=== PATIENT | female | born 1960 | race Caucasian/White ===

== ENCOUNTER 2020-03-31 10:02 | Outpatient (CLI) | payer OTHER, SELFPAY ==
--- NOTE | ~2020-03-31 | CT_ITS ---
EXAMINATION: CT lung screening EXAM DATE: 03/31/2020 10:39 INDICATION: Personal history of nicotine dependence. TECHNIQUE: Spiral low dose CT of the chest without contrast. Axial, coronal and sagittal images were reviewed. The dose-length product (DLP) for this examination was 102.44 mGy-cm. The exposure was t ailored according to patient size (auto mA exposure control), and iterative reconstruction (ASIR) was used as additional dose reduction technique. Comparison is made to prior examination from 01/15/2019. FINDINGS: Scattered calcified granulomas. Mild emphysema. Tracheobronchial tree is patent. There is no mediastinal, hilar or axillary lymphadenopathy. There are no pleural or pericardial effusions . There is no pneumothorax. Heart normal in size. There is mild to moderate coronary arterial c alcification, arterial sclerosis. Left adrenal adenomas. There is mild thoracic spondylosis without osteoblastic or osteolytic lesions identified. Normalization of previously seen hepatic steatosis. Otherwise no interval change. IMPRESSION: Lung-RADS category 1, negative (<1%chance of malignancy); recommend continued LDCT screen ing in 1 year. > Reviewed, dictated and finalized at location B. IMPRESSION: Lung-RADS category 1, negative (<1%chance of malignancy); recommend continued LDCT screening in 1 year. >
== END 2020-03-31 10:03 | disposition home or self-care (01) ==
LOC: ANHIMG 10:09
PROVIDERS: Visit Provider Nurse Practitioner Family
DX: Z87.891 Personal history of nicotine dependence (principal)
CPT/HCPCS: G0297

== ENCOUNTER 2023-06-18 10:09 | Outpatient (CLI) | payer OTHER, SELFPAY ==
--- NOTE | ~2023-06-18 | XR_ITS ---
EXAMINATION: XR chest 2V 06/18/2023 10:34 INDICATION: COPD. Chronic bronchitis. PROCEDURE: PA and lateral views of the chest COMPARISON: No prior studies for comparison. FINDINGS: The lungs are clear. The cardiomediastinal silhouette is within normal limits. There are no pleural effusions. There is no pneumothorax suspected. IMPRESSION: 1: NO ACUTE CARDIOPULMONARY DISEASE. Reviewed, dictated and finalized at location L.
== END 2023-06-18 10:10 | disposition home or self-care (01) ==
LOC: ANHIMG 10:21
PROVIDERS: PCP Emergency Medicine; Visit Provider Emergency Medicine
DX: J44.9 Chronic obstructive pulmonary disease, unspecified (principal); I73.9 Peripheral vascular disease, unspecified; Z87.09 Personal history of other diseases of the respiratory system
CPT/HCPCS: 71046

== ENCOUNTER 2023-06-25 13:23 | Outpatient (CLI) | payer OTHER, SELFPAY ==
--- NOTE | ~2023-06-25 | DEXA_ITS ---
Bone Density Report Name: ZULLY RIBEIRO Age: 63 Sex: Female Ethnicity: White Date of : 1960 Indication: postmenopausal; screening for osteoporosis; prior fracture; asthma or emphysema; hysterectomy; Referring Provider: YEE, DOMITILA [place] Study: Bone densitometry was performed. Exam Date: June 25, 2023 Accession number: [id number] Bone Density: Region BMD T-score Z-score Classification AP Spine(L1-L4) 0.988 -0.5 1.0 Normal Femoral Neck (Left) 0.713 -1.2 0.1 Osteopenia Total Hip (Left) 0.905 -0.3 0.7 Normal Femoral Neck (Right) 0.745 -0.9 0.4 Normal Total Hip (Right) 0.905 -0.3 0.7 Normal Total Hip Mean 0.905 -0.3 0.7 Normal World Health Organization criteria for BMD impression classify patients as: Normal (T-score at or above -1.0), Osteopenia (T-score between -1.0 and -2.5), or Osteoporosis (T-score at or below -2.5). 10-year Fracture Risk(1): Major Osteoporotic Fracture 13% Hip Fracture 1.6% Reported Risk Factors: [place] (), Neck BMD=0.713, BMI=27.9, previous fracture, smoking (1) FRAX(R) Version 3.08. Fracture probability calculated for an untreated patient. Fracture probability may be lower if the patient has received treatment. Clinical Information Provided by Patient: Has had a low trauma fracture Smokes Has used the following medications: Vitamin D Has the following medical conditions: Asthma or Emphysema, Hysterectomy Patient maximum height was 65.5 Menopause Age: 48 No regular weight bearing exercise Does not regularly consume dairy products Drinks caffeinated beverages Onset of menses at age 14 Number of children 2 Impression: The patient has low bone mass, based on the Left Femoral Neck T-score. The patient has an estimated ten-year risk of hip fracture of 1.6% and an estimated ten-year risk of major fracture of 13%, based on the WHO FRAX algorithm. The patient has risk factors, including: smoking, previous fracture. Discussion: BONE DENSITY IS LOW AT ONE OR MORE SKELETAL SITES. This patient's lowest T-score is low at one or more skeletal sites. It meets the World Health Organization's (WHO) criteria for ?low bone mass? (T-score between -1.0 and -2.5). The patient's 10-year risk of fracture as calculated by FRAX is less than the threshold where pharmacological therapy is recommended by the National Osteoporosis Foundation (NOF). However, all treatment decisions require clinical judgment and consideration of individual patient factors, including patient preferences, comorbidities, previous drug use, risk factors not captured in the FRAX model (e.g., frailty, falls, vitamin D deficiency, increased bone turnover, interval significant decline in bone density) and possible under or overestimation of fracture risk by FRAX. The patient nas
== END 2023-06-25 13:24 | disposition home or self-care (01) ==
PROVIDERS: PCP Emergency Medicine; Visit Provider Nurse Practitioner
DX: Z13.820 Encounter for screening for osteoporosis (principal); M85.852 Other specified disorders of bone density and structure, left thigh
CPT/HCPCS: 77080

== ENCOUNTER 2023-09-28 10:53 | Outpatient (CLI) | payer OTHER, SELFPAY ==
--- NOTE | ~2023-09-28 | MM_ITS ---
EXAMINATION: MM screening trey BI w darrick HISTORY: Screening mammogram TECHNIQUE: Craniocaudal and mediolateral oblique 3-D tomosynthesis images were obtained and synthetic 2-D images were generated. CAD analysis was submitted and interpreted. COMPARISON: No prior mammogram is available for comparison at this institution. BREAST PARENCHYMAL COMPOSITION: There are scattered areas of fibroglandular density. FINDINGS: 2 subcentimeter masses are noted in the upper central and upper outer left breast. Diagnost ic left mammogram and left breast ultrasound examination are recommended. No suspicious mass, architectural distortion, malignant calcification, skin thickening or retraction of either breast is noted otherwise. IMPRESSION: 1. Two upper central and outer left breast masses 2. Diagnostic left mammogram and left breast ultrasound examination are recommended. Reviewed, dictated and finalized at location A. NG MARKER IMPRESSION: 1. Two upper central and outer left breast masses 2. Diagnostic left mammogram and left breast ultrasound examination are recomme nded.
== END 2023-09-28 10:54 | disposition home or self-care (01) ==
LOC: ANHIMG 10:56
PROVIDERS: PCP Emergency Medicine; Visit Provider Emergency Medicine
DX: Z12.31 Encounter for screening mammogram for malignant neoplasm of breast (principal); R92.8 Other abnormal and inconclusive findings on diagnostic imaging of breast
CPT/HCPCS: 77063; 77067

== ENCOUNTER 2024-04-01 09:18 | Outpatient (CLI) | payer OTHER, SELFPAY ==
--- NOTE | ~2024-04-01 | XR_ITS ---
EXAMINATION: XR shoulder LT min 2V DATE: 04/01/2024 09:37 INDICATION: Left shoulder pain. TECHNIQUE: 4 views of left shoulder were obtained. COMPARISON: None. FINDINGS: Bone alignment is normal. No fracture. There is mild osteoarthritis of glenohumeral joint a nd severe osteoarthritis of acromioclavicular joint. IMPRESSION: 1. Polyarticular osteoarthritis. Reviewed, dictated and finalized at location A.
== END 2024-04-01 09:19 | disposition home or self-care (01) ==
LOC: ANHIMG 09:21
PROVIDERS: PCP Emergency Medicine; Visit Provider Emergency Medicine
DX: M19.012 Primary osteoarthritis, left shoulder (principal)
CPT/HCPCS: 73030

== ENCOUNTER 2024-05-04 10:05 | Outpatient (CLI) | payer OTHER, SELFPAY ==
--- NOTE | ~2024-05-04 | XR_ITS ---
XR knee RT 3V Ordering provider: Claude Philip MD History: . RT KNEE PAIN, NUMBNESS . Comparison: None. FINDINGS: BONES: No acute fracture or dislocation. JOINT SPACES: Normal. SOFT TISSUES: Normal. IMPRESSION: No acute osseous abnormality right knee. Reviewed, dictated and finalized at location A.
--- NOTE | ~2024-05-04 | US_ITS ---
RIGHT LOWER EXTREMITY VENOUS ULTRASOUND Ordering provider: Claude Philip MD History: . RT LEG PAIN . Comparison: None. FINDINGS: --COMMON FEMORAL: Patent and free of thrombus. Normal compressibility, phasic flow and augmentation. --PROXIMAL SUPERFICIAL FEMORAL: Patent and free of thrombus. Normal compressibility, phasic flow and augmentation. --DISTAL SUPERFICIAL FEMORAL: Patent and free of thrombus. Normal compressibility, phasic flow and au gmentation. --POPLITEAL: Patent and free of thrombus. Normal compressibility, phasic flow and augmentation. --POSTERIOR TIBIAL: Patent and free of thrombus. Normal compressibility, phasic flow and augmentation . 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 Patent poplite al artery. IMPRESSION: Negative right lower extremity venous US. No deep vein thrombosis. 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 Patent popliteal art keyana Reviewed, dictated and finalized at location A. IMPRESSION: Negative right lower extremity venous US. No deep vein thrombosis. 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 Patent popliteal artery
== END 2024-05-04 10:06 | disposition home or self-care (01) ==
LOC: ANHIMG 10:07
PROVIDERS: PCP Emergency Medicine; Visit Provider Emergency Medicine
DX: M25.561 Pain in right knee (principal)
CPT/HCPCS: 73562; 93971

== ENCOUNTER 2024-09-16 11:40 | Outpatient (CLI) | payer OTHER, SELFPAY ==
[2024-09-16 12:26] LABS: Add Urine Microscopic? YES; Appearance Urine Clear (Clear); Bacteria Urine Rare /hpf; Bilirubin Urine Negative (Negative); Blood Urine Negative (Negative); Color Urine Yellow (Yellow); Glucose Urine UA 3+ mg/dL (Negative); Ketones Urine Negative (Negative); Leukocyte Esterase Ur Trace LEU/UL (Negative); Nitrate Urine Negative (Negative); Non Pathogenic Casts 0-2; Protein Urine Negative (Negative); RBC Urine 0-2 /hpf (0-2); Squamous Epithelial Cell Urine Few /hpf (Few); Urobilinogen Urine 0.2 mg/dL (<2.0); WBC Urine 0-5 /hpf (0-3)
[2024-09-16 13:11] LABS: Hematocrit 49.6 % (37.0-47.0); Hemoglobin 16.2 g/dL (12.0-15.0); Mean Corpuscular HGB Conc 32.7 g/dl (32-36); Mean Corpuscular Hemoglobin 28.8 pg (26-34); Mean Corpuscular Volume 88.1 fl (80-100); Mean Platelet Volume 10.8 fl (7.4-10.4); Platelet Count Result 233 k/mm3 (150-375); Red Blood Count 5.63 M/mm3 (4.2-5.4); Red Cell Distribution Width 14.5 % (11.5-14.5); White Blood Count 7.4 K/mm3 (4.5-10.0)
[2024-09-16 13:30] LABS: Alanine Aminotransferase 20 U/L (6-35); Albumin Level 4.5 g/dL (3.5-5.1); Alkaline Phosphatase 77 U/L (38-126); Anion Gap 6 mmol/L (4-12); Aspartate Amino Transferase 21 U/L (14-36); Bilirubin,Total 0.6 mg/dL (0.2-1.3); Blood Urea Nitrogen 23 mg/dL (7-17); Calcium 9.8 mg/dL (8.4-10.2); Carbon Dioxide 25 mmol/L (22-30); Chloride 106 mmol/L (98-107); Cholesterol 176 mg/dL (0-200); Estimated Glomerular Filt Rate > 60; Glucose 115 mg/dL (65-110); HDL Direct 38 mg/dL; Potassium 4.2 mmol/L (3.4-5.0); Sodium 137 mmol/L (137-145); Triglycerides 177 mg/dL (<150)
[2024-09-16 13:40] LABS: LDL Cholesterol Direct 92 mg/dL
[2024-09-16 14:00] LABS: Thyroid Stimulating Hormone 0.973 uIU/mL (0.465-4.680)
[2024-09-16 14:13] LABS: Free T4 Free Thyroxine 1.13 ng/dL (0.78-2.19); Vitamin D 25 Hydroxy 33.1 ng/mL
[2024-09-16 18:39] LABS: Hemoglobin A1C 6.7 % (<5.7)
== END 2024-09-16 11:41 | disposition home or self-care (01) ==
LOC: ANHLAB 11:43
PROVIDERS: PCP Emergency Medicine; Visit Provider Emergency Medicine
DX: J44.9 Chronic obstructive pulmonary disease, unspecified (principal); I73.9 Peripheral vascular disease, unspecified; E55.9 Vitamin D deficiency, unspecified; E11.9 Type 2 diabetes mellitus without complications; I10 Essential (primary) hypertension; E78.5 Hyperlipidemia, unspecified
CPT/HCPCS: 36415; 80053; 80061; 81001; 82306; 83036; 84439; 84443; 85027

== ENCOUNTER 2025-03-05 08:19 | Outpatient (CLI) | payer OTHER, SELFPAY ==
--- OUTSIDE RECORDS SUMMARY | 2025-03-05 08:25 | XMS_ITS | Data Portability ---
Author Organization [facility] [place] Address [address] [place] [address] Care Team Providers Care Branch Chief Name Role Phone PING JENNINGS Primary Care Provider Assessment Encounter Date Assessment Date Assessment LastModified by Organization Details LastModified Time 06/24/2023 06/24/2023 Annual gynecological exam performed. Patient will come back in a year unless there are new symptoms. tom Not available 06/24/2023 12:05:52 Plan of Treatment Reminders Order Date Submit Date Provider Last Modified By Organization Details Last Modified Time Details Appointments [facility] 2024 10:45A M DORIS Nieves Not available Not available Not available Lab None recorde d. Referral urologi st referra l 2022 023 [facility], [address] [place], [address], 07/01/2023 16:02:49 Procedures None recorde d. Surgeries None recorde d. Imaging DEXA, axial skeleto n + vertebr al fractur e assessm ent [address] [facility] [place], [facility] [address], [place], [address], 07/09/2023 11:59:52 Medication Orders None recorde d. Patient TargetsNo targets recorded. Patient InstructionsNo instructions recorded. 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, Encounter Date: 06/24/2023 Results Created Date Observation Date Name Description Value Unit Range Abnormal Flag Note LastModifiedBy Organization Detail LastModifiedTime 06/24/20 23 06/24/2023 IMAGE GUIDE D PAP AND HPV REGAR DLESS image guided Pap, HPV regardless of Pap result SEE RESULT S BELOW abnormal CASE REPOR T: Cytol ogy Gynec ologi kosta Repor t Case: [id number] Autho rohini momin Provi silverio: Maria G Ly, TRICE Colle cted: 06/24 1605 Order ing Locat ion: [place] Patho log[facility] Recei jyoti: 06/25 0718 First Scree n: Richar arpp ak, [place], [place] Patho logis t: Steven Klein MD Speci men: Lydia jaramillo Pap - Image d, Vagin a STATE MENT OF ADEQU ACY: Satis facto ry for evalu ation FINAL DIAGN OSIS: Epith elial Cell Abnor malit y, Squam ous Cell: Atypi kosta Squam ous Cells of Undet ermin ed Signi fican ce (ASC- US). Elect edinson hayden mima d by Steven Klein MD on 2022 at 12:02 PM ----- ----- ----- ----- ----- ----- ----- ----- ----- ----- ----- ----- ----- ----- ----- ----- ----- ---- HPV RESUL TS: HPV mRNA E6/E7 : No HPV mRNA Detec blessing NOTE: This high risk HPV mRNA assay detec ts fourt een high- risk HPV types (16, 18, 31, 33, 35, 39, 45, 51, 52, 56, 58, 59, 66, 68) witho ut diffe renti ation . COMME NT: This speci men was revie wed by a Cytot echno logis t and/o r Patho logis t (as indic ated in this repor t) after evalu ation using the Thinp rep Imagi ng Syste m. CLINI KOSTA INFOR MATIO N: Menst rual Statu s: LMP (if appli cable ): Clini kosta Histo ry/Pr eviou s Pap: Type of Neopl paul (if appli cable ): Signi fican t Clini kosta Findi ngs: Other Histo ry: Hormo kayden (if appli cable ): SUGGE STED FOLLO W-UP: Follo w up as warra nted, based on curre nt guide lines and indiv idual patie nt consi derat ions. Not Available [facility] (Lab) [address], [place], [address], 06/26/2023 13:05:27 07/09/20 23 DEXA, axial skele ton + verte bral fract ure asses sment No observ ation record ed. [facility] [address] [place] [address] [address], [place], [address], 07/15/2023 19:23:06 Result Notes None recorded. Procedures Surgical History Date Name Laterality Status Provider Name and Address Organization Details Recorded Time 03/03/20 22 Date of Last Mammogram completed [facility] 06/24/2023 12:06:55 05/21/20 21 completed [facility] 06/24/2023 12:06:55 01/25/20 20 Date of Last Colonoscopy completed [facility] 06/24/2023 12:06:55 01/23/20 18 Date of Last Pap Smear completed [facility] 06/24/2023 12:06:55 06/07/20 12 procedure on urinary bladder completed DORIS Nieves [address], [place], [address], [facility] 06/24/2023 12:33:23 ligation of bilateral fallopian tubes completed [facility] 06/24/2023 12:11:04 Partial hysterectomy completed Luly Darline [facility] 06/24/2023 12:11:12 Imaging Results None recorded. Procedure Notes None recorded. Medical Equipment None Reported. Allergies Allergen ID Allergen Name Allergen Category Reaction Reaction Severity Criticality Documentation Date Start Date Code Code System Note Provider Name and Address Organization Details Recorded Time 13101 iodine medicatio n Not available Not available Not available 06/24/2023 5933 RxNorm Luly Blacktorrie cox [facility] 12:06:48 Medications Name Sig Start Date Stop Date Status Note LastModified by Organization Details LastModified Time atorvastati n 40 mg tablet TAKE 1 TABLET BY MOUTH EVERY DAY AT DINNER active Not Available Not Available No t Available carvedilol 12.5 mg tablet TAKE 1 TABLET BY MOUTH DAILY active Not Available Not Available No t Available loperamide 2 mg capsule TAKE 2 CAPSULES BY MOUTH NOW AND 1 CAPSULE WITH EACH LOOSE STOOL FOR MAX OF 4 CAPSULES EVERY 24 HOURS active Not Available Not Available No t Available lisinopril 20 mg tablet TAKE 1 TABLET BY MOUTH EVERY DAY active Not Available Not Available No t Available glipizide ER 5 mg tablet, extended release 24 hr active Not Available Not Available Not Available amlodipine 5 mg tablet TAKE 1 TABLET BY MOUTH EVERY DAY active Not Available Not Available No t Available tramadol 50 mg tablet TAKE 1 TABLET BY MOUTH EVERY 8 HOURS NEEDED 06/24 completed Not Available Not Available Not Available ondansetron 8 mg disintegrat ing tablet DISSOLVE 1 TABLET ON THE TONGUE EVERY 6-8 HOURS NEEDED active Not Available Not Available No t Available OneTouch Ultra Test strips active Not Available Not Available Not Available lisinopril 30 mg tablet active Not Available Not Available Not Available ergocalcife rol (vitamin D2) 1,250 mcg (50,000 unit) capsule 06/24 completed Not Available Not Available Not Available albuterol sulfate HFA 90 mcg/actuati on aerosol inhaler INHALE 2 TO 4 PUFFS BY MOUTH EVERY 4 TO 6 HOURS NEEDED FOR SHORTNESS OF BREATH active Not Available Not Available No t Available lisinopril 40 mg tablet active Not Available Not Available Not Available naproxen 500 mg tablet TAKE 1 TABLET BY MOUTH TWICE DAILY active Not Available Not Available No t Available Januvia 100 mg tablet TAKE 1 TABLET BY MOUTH EVERY DAY active Not Available Not Available No t Available cholecalcif luz (vitamin D3) 50 mcg (2,000 unit) tablet TAKE 1 TABLET BY MOUTH EVERY DAY active Not Available Not Available No t Available Jardiance 10 mg tablet active Not Available Not Available Not Available OneTouch Ultra2 Meter active Not Available Not Available Not Available OneTouch Delica Plus Lancet 33 gauge active Not Available Not Available Not Available BinaxNOW COVID-19 Ag Self Test kit TEST DIRECTED TODAY 06/24 completed Not Available Not Available Not Available Paxlovid 300 mg (150 mg x 2)-100 mg tablets in a dose pack TK 2 NIRMATREL VIR TS AND 1 RITONAVIR T TOGETHER PO BID FOR 5 DAYS BID FOR 5 DAYS 06/24 completed Not Available Not Available Not Available Vitals Date Recorded Body height Body mass index (BMI) Body weight Systolic blood pressure Diastolic blood pressure Provider Name and Address Organization Details Last Updated DateTime 06/24/2023 166.37 cm 28 kg/m2 70936.3 g 145 mm[Hg] 84 mm[Hg] Luly Gregorio [facility] 12:06:45 Social History Question Answer Notes LastModified by Organizat ion Details LastModified Time How Many Years Have You Consumed Alcohol? 20 Information not available 06/24/2023 Are You Blind Or Do You Have Difficulty Seeing? Yes Information not available 06/24/2023 What Is Your Level Of Caffeine Consumption? Moderate Information not available 06/24/2023 How Much Tobacco Do You Chew? None Information not available 06/24/2023 In The 14 Days Before Symptom Onset, Have You Had Close Contact With A Laboratory-confirme d COVID-19 While That Case Was Ill? No Information n ot available 06/24/2023 In The 14 Days Before Symptom Onset, Have You Had Close Contact With A Person Who Is Under Investigation For COVID-19 While That Person Was Ill? No Information not available 06/24/2023 Have You Been To An Area Known To Be High Risk For COVID-19? No Information not available 06/24/2023 Are You Deaf Or Do You Have Serious Difficulty Hearing? No Information not available 06/24/2023 What Type Of Diet Are You Following? REGULAR Information n ot available 06/24/2023 What Is The Highest Grade Or Level Of School You Have Completed Or The Highest Degree You Have Received? [id number] Information not available 06/24/2023 Are There Any Guns Present In Your Home? No Information not available 06/24/2023 Do You Use Protection During Sex? No Information not available 06/24/2023 Do You Use Your Seat Belt Or Car Seat Routinely? Yes Information not available 06/24/2023 Do You Have Smoke And Carbon Monoxide Detectors In Your Home? Yes Information not available 06/24/2023 At What Age Did You Start Smoking Tobacco? 15 Information not available 06/24/2023 How Much Tobacco Do You Smoke? 0.5 PPD Information not available 06/24/2023 Do You Use Sunscreen Routinely? Yes Information not available 06/24/2023 How Many Years Have You Smoked Tobacco? 38 Information not available 06/24/2023 Have You Used IV Drugs? No Information not available 06/24/2023 Do You Have Difficulty Walking Or Climbing Stairs? No Information not available 06/24/2023 Sex: Unknown Functional Status Question Answer Note LastModified by Organizat ion Details LastModified Time Do you use any illicit or recreational drugs? Yes Information not available 06/24/2023 What is your level of alcohol consumption? None Information not available 06/24/2023 Are you able to walk? YESWOREST Information not available 06/24/2023 Are you able to care for yourself? Yes Information n ot available 06/24/2023 What is your occupation? None Information not available 06/24/2023 Do you have difficulty dressing or bathing? No Information not available 06/24/2023 What is your exercise level? Occasional Information not available 06/24/2023 Mental Status Question Answer Note LastModified by Organization D etails LastModified Time Do you feel stressed (tense, restless, nervous, or anxious, or unable to sleep at night)? TI12742-6 Information not available 06/24/2023 Family History Relationship Description Onset Age of this Age Resolved Age Notes LastModified by Organization Details LastModified Time Mother Disorder of lung vschroedter Not available 06/07 12:06:52 Sister Disorder of lung vschroedter Not available 06/07 12:06:52 Medical History Condition Response Diabetes Y Anxiety Disorder Y Other Y Hepatitis/Liver Disease Y Polyps Y High Cholesterol Y Anesthesia Complications Y Kidney or Bladder Problems Y Hypertension Y Asthma Y Gynecological History Statement/Question Response Abnormal Pap Y Date of Last Mammogram 2022 On BCP's at Conception? N N Was last menstrual period normal Y STIs/STDs Y HPV Vaccine N Duration of Flow (days) 7 Current Control Method Hysterectom y Age at First Child 22 If Post Menopausal, Age at Menopause 60 Date of Last Colonoscopy 01/25/2020 Sexually Active? Y Hysterectomy Age of first menstrual cycle 14 Date of Last Pap Smear 01/22/2018 Sexual Problems? Y Desired Control Method Sterilizati on LMP Unknown 05/21/2021 N Obstetrics History GPAL:G 4 P 0 0 2 2 Type Value Spontaneous 2 Living 2 Total 4 Past Encounters Encounter ID Performer Location Encounter Start Date Encounter Closed Date Diagnosis/Indication Diagnosis SNOMED-CT Code Diagnosis ICD10 Code Diagnosis Note [id number] DORIS Nieves [place] [address] [address] 06/24/2023 11:54:00 06/24/2023 12:47:06 Gynecologic examination 19759421 Z01.419 Take Calcium with Vitamin D 12-1500mg daily. Do monthly self breast exams. It is advised to get annual flu shot in the fall and she could obtain at [facility] or [facility] clinic. If you haven't received the Tdap vaccine in the last 10 years you should obtain one as well. Have mammogram yearly, bone density every 2-3 years and colonoscop y every 5-10 years depending on findings and history. Engage in daily exercise of low impact aerobic exercise 45-60 minutes 4-5 times weekly. Avoid tobacco and illicit drugs as well as using moderation with alcohol intake less than 1-2 8 oz beverages daily. This lifestyle behavior pattern will lead to less health conditions and longer life span. If BMI greater than 25 weight watchers or dietary consult advised. Questions have been answered. Patient appears to understand instructio ns, but if you have any further questions call or respond to this email WWEpap done today due to uncertain pap hxSTI testing declinedma mmogram UTD - has scheduled for next monthcolon oscopy UTD - last in exa order given - encouraged to scheduleRe commended urology consult given incontinen ce and hx of multiple bladder procedures - referral sentUTD with PCP for routine labsdiscus sed veg based moisturize rs/lubrica tion with ICRTC in 1 year or sooner if needed records request filled on and faxed to obtain pt hxBP precaution s discussed, encouraged f/u with PCP Screening for osteoporosis [id number] Z13.820 Mixed urin kely incontinence [id number] N39.46 Health Concerns Section Related Observation LastModified by Organization Detai ls LastModified Time None Recorded Concern Status LastModified by Organization Details LastModified Time None Recorded Advance Directives Directive None Recorded Payers Encounter Date Sequence Insurance Name Policy Number Policy John Covered Member ID John Member ID Guarantor Name 06/24/2023 1 [facility] - DOS ON OR AFTER 21 (MEDICAID REPLACEMENT - HMO) Tracy Roth [id number] Tracy Roth Notes Date Note Type Note Provider Name and Address Organization Details Recorded Time 06/24/2023 text/html 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 Post-MenopausalRep orted bypatient.Menopaus al Symptoms:no menopausal symptoms; normal vaginal lubrication Vaginal Bleeding:history of menopause having occurred; no history of post menopausal bleeding Urinary Symptoms:no hematuria; no nocturia; no urinary frequency;incontin ence;stress incontinence;urge incontinence Vulva:no genital lesion; no vulvar atrophy Vagina:normal vaginal discharge; no vaginal atrophy Breast:no breast lump; no nipple discharge; no breast pain Sexual Complaints:no sexual complaints; dryness with IC Psychological Symptoms:no depression; no anxiety Preventive Measures:encourage regular mammograms starting age 40; encourage self breast examination; encourage regular exercise; encourage no tobacco use; mammogram performed within the past year; history of recent colonoscopy; needs to schedule bone densityNotes:hx of BTL 30+ years agohx of hyst in 2007 for abnormal pap, precancerous cells per pt. No hx of procedures on cervix prior to hyst. Ovaries remain. Procedure on bladder prolapse/incontine nce done at same time as hyst. Needed an additional bladder procedure in 2011 - Unsure what was done.urge and stress IC since procedures, wears pad dailythinks she february of had a pap done in 2018 that was abnormal DORIS Nieves [address], [place], [address], [facility] 06/24/2023 12:40:06 OBGyn Episode Ob Episode Information Episode Created Date Number of Fetuses Patient Bloodtype Patient rh Status Prepregnancy Weight lbs Domestic Partner Domestic Partner Phone Father Name Medical Orderly Status 06/24/20 23 1 CLOSED Fetus Data First Name Last Name Admitted to NICU Weight (g) Sex Living Outcome Pediatric Complications Fetus ID Race Codes Race Delivery Type [phone] [phone] F Full Term [id number] Vaginal Delivery Trevin Calculation Initial Trevin Date Initial Exam Date Initial Exam Provider Initial Ultrasound Date Last Menstrual Period Date Ultra Sound Weeks Gestation 0 Eighteen To Twenty Week Trevin Update Ultra Sound Date Fundal Height At Umbil Quickening Date Ultra Sound Latest Weeks Gestation Final Trevin Confirmed By Final Trevin Confirmed Date Final Trevin Date Ultra Sound Latest Days Gestation 0 0 Menstrual History Last Menstrual Date Menses Monthly On Bcp Conception Prior Menses Frequency Hcg Plus Date Menarche Onset Age Delivery Information Delivery Date Delivery Type Labor Anesthesia Weeks Gestation Incision Type Labor Labor Length Hrs Delivered By Post Complications Tubal Sterilization Discharge Date Comments 4 37 Discharge Information Feeding Method Contraceptive Method Maternal HG B and HCT Levels Ob Episode Information Episode Created Date Number of Fetuses Patient Bloodtype Patient rh Status Prepregnancy Weight lbs Domestic Partner Domestic Partner Phone Father Name Medical Orderly Status 06/24/20 23 1 CLOSED Fetus Data First Name Last Name Admitted to NICU Weight (g) Sex Living Outcome Pediatric Complications Fetus ID Race Codes Race Delivery Type [phone] F Full Term [id number] Vaginal Delivery Trevin Calculation Initial Trevin Date Initial Exam Date Initial Exam Provider Initial Ultrasound Date Last Menstrual Period Date Ultra Sound Weeks Gestation 0 Eighteen To Twenty Week Trevin Update Ultra Sound Date Fundal Height At Umbil Quickening Date Ultra Sound Latest Weeks Gestation Final Trevin Confirmed By Final Trevin Confirmed Date Final Trevin Date Ultra Sound Latest Days Gestation 0 0 Menstrual History Last Menstrual Date Menses Monthly On Bcp Conception Prior Menses Frequency Hcg Plus Date Menarche Onset Age Delivery Information Delivery Date Delivery Type Labor Anesthesia Weeks Gestation Incision Type Labor Labor Length Hrs Delivered By Post Complications Tubal Sterilization Discharge Date Comments 2 38 Discharge Information Feeding Method Contraceptive Method Maternal HG B and HCT Levels
--- OUTSIDE RECORDS SUMMARY | 2025-03-05 08:25 | XMS_ITS | Referral Summary ---
Author Organization [facility] Address [address] [place] [address] Care Team Providers Care Advisory Internship Name Role Phone Claude Philip MD Primary Care Provider [phone] Allergies Active Allergy Reactions Criticality Noted Date Comments Iodine Swelling High 10/24/2017 Throat swelling Shellfish Containing Products Shortness of breath High 10/08/2019 Medications lancets misc Check blood sugars twice a day 100 each 11 8 Active carvedilol (COREG) 25 mg tabletIndications :Essential hypertension Take 1 tablet (25 mg total) by mouth 2 (two) times a day with meals. 120 tablet 3 8 Active blood glucose diagnostic stripIndications: Type 2 diabetes mellitus with other specified complication, without long-term current use of insulin (HCC) Test Blood sugar Twice a day 100 each 3 8 Active fluticasone propionate (FLONASE) 50 mcg/actuation nasal sprayIndications: Chronic rhinitis Administer 2 sprays into each nostril daily 1 each 2 3 Active losartan (COZAAR) 100 mg tablet Take 1 tablet (100 mg total) by mouth daily 3 Active ezetimibe (ZETIA) 10 mg tablet Take 1 tablet (10 mg total) by mouth daily 3 Active Kerendia 20 mg tablet 3 Active amLODIPine (NORVASC) 10 mg tablet 4 Active ergocalciferol (VITAMIN D) 50,000 unit capsule Take 1 capsule (50,000 Units total) by mouth once a week 4 Active Xarelto 2.5 mg tablet Take 1 tablet (2.5 mg total) by mouth 2 (two) times a day Active pantoprazole DR (PROTONIX) 40 mg EC tablet 4 Active OneTouch Delica Plus Lancet 33 gauge misc USE TO TEST BLOOD SUGAR LEVELS TWICE DAILY 4 Active albuterol HFA (Ventolin HFA) 90 mcg/actuation inhalerIndication s:Bronchospasm Prevention,Chroni c Obstructive Pulmonary Disease Inhale 2 puffs every 4 (four) hours as needed for wheezing or shortness of breath 1 each 5 4 09/21/20 25 Active tiotropium bromide (SPIRIVA RESPIMAT) 2.5 mcg/actuation inhalerIndication s:Chronic obstructive pulmonary disease, unspecified COPD type (HCC) Inhale 2 puffs daily 4 g 4 4 Active montelukast (SINGULAIR) 10 mg tabletIndications :Chronic rhinitis Take 1 tablet (10 mg total) by mouth nightly 90 tablet 2 4 09/21/20 25 Active dulaglutide (TRULICITY) 1.5 mg/0.5 mL pen injectorIndicatio ns:Type 2 diabetes mellitus with hyperglycemia, without long-term current use of insulin (HCC) Inject 0.5 mL (1.5 mg total) under the skin every 7 days 2 mL 5 4 03/20/20 25 Active Jardiance 10 mg tabletIndications :Type 2 diabetes mellitus with hyperglycemia, without long-term current use of insulin (HCC) Take 1 tablet (10 mg total) by mouth daily 30 tablet 11 4 09/21/20 25 Active Active Problems Problem Noted Date Diagnosed Date Chronic maxillary sinusitis 05/15/2021 Assessment & Plan (06/29/2021 10:57 AM CDT): Continue Flonase 2 sprays into each nostril while looking down over the sink, do not sniff in or blow nose after use for at least 30 minutes daily Try nasal pillow CPAP mask Follow up with [facility], contacts provided Assessment & Plan (05/15/2021 11:27 AM CDT): Augmentin with a meal twice daily for 14 days Call if problems or no improvement with Augmentin to switch to Doxycycline Follow up in 4-[address] Sinus right before follow up Please have mask completely off for CT scan Flonase 2 sprays into each nostril while looking down over the sink, do not sniff in or blow nose after use for at least 30 minutes daily Deviated nasal septum 05/15/2021 Assessment & Plan (05/15/2021 11:27 AM CDT): Augmentin with a meal twice daily for 14 days Call if problems or no improvement with Augmentin to switch to Doxycycline Follow up in 4-[address] Sinus right before follow up Please have mask completely off for CT scan Flonase 2 sprays into each nostril while looking down over the sink, do not sniff in or blow nose after use for at least 30 minutes daily Hyperlipidemia associated with type 2 diabetes kwame morfin 05/04/2020 Assessment & Plan (09/21/2024 7:47 PM MOTOR OVERHAULER): Chronic, stable Continue Statin therapy Assessment & Plan (06/24/2024 10:51 AM CDT): Chronic problem. Near goal on current Atorvastatin 20mg & Zetia 10mg daily. Last lipid panel: 03/30/24 LDL=77, TR=135. Assessment & Plan (04/05/2024 7:33 PM CDT): Continue current statin therapy Tolerating well Assessment & Plan (09/14/2021 12:31 PM MOTOR OVERHAULER): Continue current statin therapy Tolerating well Assessment & Plan (01/31/2021 9:50 PM CDT): Continue current statin therapy Tolerating well Assessment & Plan (05/04/2020 9:36 AM CDT): Reviewed today lipid panel results LDL at goal Continue current statin therapy Low HDL, advise to increase exercise High TG - as test done non fasting Diabetic polyneuropathy asso ciated with type 2 diabetes mellitus 05/04/2020 Assessment & Plan (06/24/2024 11:00 AM CDT): Chronic problem. Reviewed foot care; needs to lotion daily. Aware to check feet nightly, not to go barefoot. Assessment & Plan (04/05/2024 7:33 PM CDT): Chronic, stable On Gabapentin for symptomatic management Assessment & Plan (09/14/2021 12:31 PM MOTOR OVERHAULER): Chronic, stable On Gabapentin for symptomatic management Assessment & Plan (01/31/2021 9:55 PM CDT): Chronic, stable On Gabapentin for symptomatic management Assessment & Plan (05/04/2020 9:37 AM CDT): Chronic, stable On Gabapentin for symptomatic management COPD with acute exacerbation 10/13/2018 Assessment & Plan (10/13/2018 10:48 AM MOTOR OVERHAULER): COPD is worsening. Continue current medications. Recommend going to Er ADI neb given in office Wheezing throughout Refer to Pulm Sleep disturbances 06/13/2018 Assessment & Plan (06/13/2018 12:59 PM CDT): Pt. Snores loudly Fatigue all the time Wakes up tired and not refreshed. Will have her see Dr. Herrera Neuropathy 06/13/2018 Anxiety 06/13/2018 Assessment & Plan (06/13/2018 1:00 PM CDT): Increased anxiety r/t to health and of father. Will increase Citalopram Pain of both hip joints 03/10/2018 Obesity (BMI 30-39.9) 03/10/2018 Assessment & Plan (10/13/2018 10:47 AM MOTOR OVERHAULER): Obesity is unchanged. Discussed the patient's BMI. The BMI is above average; BMI management plan is completed. General weight loss/lifestyle modification strategies discussed (elicit support from others; identify saboteurs; non-food rewards, etc). Diet= low-carb Limit white bread, rice, pasta, potatoes, juice, energy drinks, coffee creamers with sugar, sugar sodas, candy, cake, cookies, ice cream. Be more careful with starchy vegetables like corn, carrots, and fruits. Stay away from processed foods, fast foods, fried foods. The cornerstone of this diet is lean grilled meats, green salads or cooked greens, fat-free milk, cottage cheese, nuts like [id number], protein bars with 10-15 g of protein and 20-30 g of carbohydrate. Choose whole grain breads and pastas, brown rice, sweet potatoes, read onions--these whole grains absorb more slowly thus blood sugar does not surge so high so quickly. Avoid drinking juice, eat a piece of fruit instead. Assessment & Plan (06/13/2018 9:45 AM CDT): Diet= low-carb Limit white bread, rice, pasta, potatoes, juice, energy drinks, coffee creamers with sugar, sugar sodas, candy, cake, cookies, ice cream. Be more careful with starchy vegetables like corn, carrots, and fruits. Stay away from processed foods, fast foods, fried foods. The cornerstone of this diet is lean grilled meats, green salads or cooked greens, fat-free milk, cottage cheese, nuts like [id number], protein bars with 10-15 g of protein and 20-30 g of carbohydrate. Choose whole grain breads and pastas, brown rice, sweet potatoes, read onions--these whole grains absorb more slowly thus blood sugar does not surge so high so quickly. Avoid drinking juice, eat a piece of fruit instead. Assessment & Plan (03/10/2018 10:37 AM CDT): Diet= low-carb Limit white bread, rice, pasta, potatoes, juice, energy drinks, coffee creamers with sugar, sugar sodas, candy, cake, cookies, ice cream. Be more careful with starchy vegetables like corn, carrots, and fruits. Stay away from processed foods, fast foods, fried foods. The cornerstone of this diet is lean grilled meats, green salads or cooked greens, fat-free milk, cottage cheese, nuts like [id number], protein bars with 10-15 g of protein and 20-30 g of carbohydrate. Choose whole grain breads and pastas, brown rice, sweet potatoes, read onions--these whole grains absorb more slowly thus blood sugar does not surge so high so quickly. Avoid drinking juice, eat a piece of fruit instead. Viral upper respiratory tract infection 12/31/19 18 Chronic bronchitis 12/30/2017 Assessment & Plan (06/13/2018 1:35 PM CDT): Using Ventolin 5-6 times a day. Still with SOB, coughing. Will add Advair Assessment & Plan (03/11/2018 1:04 PM CDT): Cough has improved some but does cough on a daily basis. Continues to smoke but has cut down to 4-5 per day. Does have Wheezing at time. Uses Ventolin on a regular basis. Pt. Will eventually need PFT's Would benefit from a maintenance inhaler Assessment & Plan (12/30/2017 9:21 PM CDT): Take your antibiotic as directed You may take a cough suppressant to calm your cough If your cough is productive or you have tight chest congestion with thick mucus- you can use a cough expectorant like Mucinex Benadryl/Zyrtec can be used to dry up a runny nose along with a nasal spray like azelastine or mometasone.. Avoid environmental triggers and allergen Drink plenty of fluids and get plenty of rest Tylenol for pain/fever . Mixed hyperlipidemia 12/30/2017 Assessment & Plan (12/30/2017 9:38 PM CDT): Lipid abnormalities are newly identified. Nutritional counseling was provided. Lipids will be reassessed in 6 months.Pt. With HTN, new DM2 and now labs showing increased Cholesterol and triglycerides. Will start pt. On a statin and baby ASA. Encourage pt. To eat healthy. Pt. States she has been eating more lean meats, fruits and vege's Screening for colon cancer 12/17/2017 Overview (12/17/2017): Added automatically from request for surgery [id number] Screening mammogram, encounter for 12/09/2017 Hypertension associated with diabetes 11/18/2017 Assessment & Plan (09/21/2024 7:47 PM MOTOR OVERHAULER): Chronic well controlled Continue carvedilol 25mg bid, losartan 100mg daily, amlodipine 5mg daily Assessment & Plan (06/24/2024 10:49 AM CDT): Chronic problem. Controlled on current carvedilol 25mg bid, losartan 100mg daily, amlodipine 5mg daily Assessment & Plan (09/14/2021 12:32 PM MOTOR OVERHAULER): Chronic, improving control Continue current medication regimen Advised low salt diet Quit smoking Assessment & Plan (01/31/2021 9:51 PM CDT): Chronic, uncontrolled ,worsening Increase Lisinopril to 20 mg oral daily Advised low salt diet Quit smoking Assessment & Plan (05/04/2020 9:35 AM CDT): Chronic, uncontrolled , improving with treatment But today BP is high, pt states is due to her pain today Advise to continue current BP pills Advise home BP monitoring Low salt diet Quit smoking Assessment & Plan (06/13/2018 1:18 PM CDT): Hypertension is improving with treatment.Stable and controlled with this current regimen Amlodipine, Coreg, Chlorthalidone, lisinopril Continue current treatment regimen. Blood pressure will be reassessed in 3 months. Lifestyle changes can help you control and prevent high blood pressure, even if you're taking blood pressure medication. Here's what you can do: Eat healthy foods. Eat a healthy diet. Try the Dietary Approaches to Stop Hypertension (DASH) diet, which emphasizes fruits, vegetables, whole grains, poultry, fish and low-fat dairy foods. Get plenty of potassium, which can help prevent and control high blood pressure. Eat less saturated fat and trans fat. Decrease the salt in your diet. A lower sodium level -- 1,500 milligrams (mg) a day -- is appropriate for people 51 years of age or older, and individuals of any age who are black or who have hypertension, diabetes or chronic kidney disease. Maintain a healthy weight. Keeping a healthy weight, or losing weight if you're overweight or obese, can help you control your high blood pressure and lower your risk of related health problems. If you're overweight, losing even 5 pounds (2.3 kilograms) can lower your blood pressure. Increase physical activity. Regular physical activity can help lower your blood pressure, manage stress, reduce your risk of several health problems and keep your weight under control. Limit alcohol. Even if you're healthy, alcohol can raise your blood pressure. If you choose to drink alcohol, do so in moderation. For healthy adults, that means up to one drink a day for women of all ages and men older than age 65, and up to two drinks a day for men age 65 and younger. One drink equals 12 ounces of beer, 5 ounces of wine or 1.5 ounces of 80-proof liquor. Don't smoke. Tobacco injures blood vessel [place] and speeds up the process of hardening of the arteries. If you smoke, ask your doctor to help you quit. Manage stress. Reduce stress as much as possible. Practice healthy coping techniques, such as muscle relaxation, deep breathing or meditation. Getting regular physical activity and plenty of sleep can help, too. Notify the office for blood pressure greater than 130/80 Assessment & Plan (03/11/2018 1:19 PM CDT): Hypertension is unchanged. Will increase Lisinopril to 10 mg Weight loss. STOP smoking Blood pressure will be reassessed in 3 months. Assessment & Plan (12/30/2017 9:25 PM CDT): Hypertension is improving with treatment. Stop smoking. Blood pressure will be reassessed in 4 weeks. BP better today. Pt. To return in 1 week for BP check and compare her BP machine reading with our BP reading. Unsure if her home BP monitor is working correctly. Her BP today does not match the readings she has today. Will add Lisinopril today since her u/s did not show any renal artery stenosis. Her CMP, GFR were ok.Will get a Lipid panel microalbumin that was not done from November. Lifestyle changes can help you control and prevent high blood pressure, even if you're taking blood pressure medication. Here's what you can do: Eat healthy foods. Eat a healthy diet. Try the Dietary Approaches to Stop Hypertension (DASH) diet, which emphasizes fruits, vegetables, whole grains, poultry, fish and low-fat dairy foods. Get plenty of potassium, which can help prevent and control high blood pressure. Eat less saturated fat and trans fat. Decrease the salt in your diet. A lower sodium level -- 1,500 milligrams (mg) a day -- is appropriate for people 51 years of age or older, and individuals of any age who are black or who have hypertension, diabetes or chronic kidney disease. Maintain a healthy weight. Keeping a healthy weight, or losing weight if you're overweight or obese, can help you control your high blood pressure and lower your risk of related health problems. If you're overweight, losing even 5 pounds (2.3 kilograms) can lower your blood pressure. Increase physical activity. Regular physical activity can help lower your blood pressure, manage stress, reduce your risk of several health problems and keep your weight under control. Limit alcohol. Even if you're healthy, alcohol can raise your blood pressure. If you choose to drink alcohol, do so in moderation. For healthy adults, that means up to one drink a day for women of all ages and men older than age 65, and up to two drinks a day for men age 65 and younger. One drink equals 12 ounces of beer, 5 ounces of wine or 1.5 ounces of 80-proof liquor. Don't smoke. Tobacco injures blood vessel [place] and speeds up the process of hardening of the arteries. If you smoke, ask your doctor to help you quit. Manage stress. Reduce stress as much as possible. Practice healthy coping techniques, such as muscle relaxation, deep breathing or meditation. Getting regular physical activity and plenty of sleep can help, too. Notify the office for blood pressure greater than 140/90 Assessment & Plan (12/09/2017 4:22 PM MOTOR OVERHAULER): Hypertension is unchanged. UNCONTROLLED Stop smoking. Blood pressure will be reassessed in 3 months.Lifestyle changes can help you control and prevent high blood pressure, even if you're taking blood pressure medication. Here's what you can do: Eat healthy foods. Eat a healthy diet. Try the Dietary Approaches to Stop Hypertension (DASH) diet, which emphasizes fruits, vegetables, whole grains, poultry, fish and low-fat dairy foods. Get plenty of potassium, which can help prevent and control high blood pressure. Eat less saturated fat and trans fat. Decrease the salt in your diet. A lower sodium level -- 1,500 milligrams (mg) a day -- is appropriate for people 51 years of age or older, and individuals of any age who are black or who have hypertension, diabetes or chronic kidney disease. Maintain a healthy weight. Keeping a healthy weight, or losing weight if you're overweight or obese, can help you control your high blood pressure and lower your risk of related health problems. If you're overweight, losing even 5 pounds (2.3 kilograms) can lower your blood pressure. Increase physical activity. Regular physical activity can help lower your blood pressure, manage stress, reduce your risk of several health problems and keep your weight under control. Limit alcohol. Even if you're healthy, alcohol can raise your blood pressure. If you choose to drink alcohol, do so in moderation. For healthy adults, that means up to one drink a day for women of all ages and men older than age 65, and up to two drinks a day for men age 65 and younger. One drink equals 12 ounces of beer, 5 ounces of wine or 1.5 ounces of 80-proof liquor. Don't smoke. Tobacco injures blood vessel [place] and speeds up the process of hardening of the arteries. If you smoke, ask your doctor to help you quit. Manage stress. Reduce stress as much as possible. Practice healthy coping techniques, such as muscle relaxation, deep breathing or meditation. Getting regular physical activity and plenty of sleep can help, too. Notify the office for blood pressure greater than 140/90 Two doses of Clonidine given in the clinic today. Will get u/s of kidneys, labs and refer to Dr. White for uncontrolled HTN. Will start Norvasc 10 mg po daily. Pt. To start with 1/2 tab for 3 days then go up to whole tab. Assessment & Plan (11/18/2017 1:24 PM MOTOR OVERHAULER): Hypertension is unchanged. Stop smoking. Blood pressure will be reassessed in 3 months. 12 lead EKG showed in ER on 10/24/17 : Rate: ECG rate assessment: normal Rhythm: Rhythm: sinus rhythm Ectopy: Ectopy: none QRS: QRS axis: Normal T waves: non-specific Interpretation: Interpretation: normal Lifestyle changes can help you control and prevent high blood pressure, even if you're taking blood pressure medication. Here's what you can do: Eat healthy foods. Eat a healthy diet. Try the Dietary Approaches to Stop Hypertension (DASH) diet, which emphasizes fruits, vegetables, whole grains, poultry, fish and low-fat dairy foods. Get plenty of potassium, which can help prevent and control high blood pressure. Eat less saturated fat and trans fat. Decrease the salt in your diet. A lower sodium level -- 1,500 milligrams (mg) a day -- is appropriate for people 51 years of age or older, and individuals of any age who are black or who have hypertension, diabetes or chronic kidney disease. Maintain a healthy weight. Keeping a healthy weight, or losing weight if you're overweight or obese, can help you control your high blood pressure and lower your risk of related health problems. If you're overweight, losing even 5 pounds (2.3 kilograms) can lower your blood pressure. Increase physical activity. Regular physical activity can help lower your blood pressure, manage stress, reduce your risk of several health problems and keep your weight under control. Limit alcohol. Even if you're healthy, alcohol can raise your blood pressure. If you choose to drink alcohol, do so in moderation. For healthy adults, that means up to one drink a day for women of all ages and men older than age 65, and up to two drinks a day for men age 65 and younger. One drink equals 12 ounces of beer, 5 ounces of wine or 1.5 ounces of 80-proof liquor. Don't smoke. Tobacco injures blood vessel [place] and speeds up the process of hardening of the arteries. If you smoke, ask your doctor to help you quit. Manage stress. Reduce stress as much as possible. Practice healthy coping techniques, such as muscle relaxation, deep breathing or meditation. Getting regular physical activity and plenty of sleep can help, too. Notify the office for blood pressure greater than 140/90 BP is NOT controlled. She received 2 doses of Clonidine 0.1 mg in the office. BP did come done to 140/91. Will change here to Atenolol 100 mg po daily because this medication is on the $4 list at [facility] and she had to pay $27 for one months supply of Labetalol. I will hold off on restarting her Lisinopril until after she gets an ultrasound of her kidneys to rule out renal artery stenosis. She is to monitor her BP readings and send them to me. Her GFR was greater than 60 for her labs in October and her BUN/Cret 18/0.60. She will get a urine microalbumin and lipid panel once she can afford it and reaches an agreement with the hospital for financial assistance. Elevated hemoglobin A1c 11/18/2017 Assessment & Plan (11/18/2017 12:30 PM MOTOR OVERHAULER): Hem A1C 7.5 Will start on Metformin 500 mg po BID. Pt to start with 1/2 tablet twice a day with meals and monitor fasting blood sugar. She is to call, chart, and document her blood sugars. We will go up on the dose if her fasting BS remain greater than 130. A meter and 10 days of strips and lancets were given. Information on a Schnucks ($10) meter and lancets (50 for $10). Handouts on hypoglycemia given. Pt will need to se a diabetes educator once she gets insurance. Renal cysts, acquired, bilateral 11/18/2017 Assessment & Plan (12/30/2017 9:20 PM CDT): Renal condition is unchanged. Stop smoking. Renal condition will be reassessed in 3 months.Renal u/s done and results given to patient. Pt. To f/u with Dr. White. Will monitor BP and kidney fx. 10/2017- kidney U/S-IMPRESSION: 1. BILATERAL RENAL CYSTS. 2. OTHERWISE NORMAL RENAL ULTRASOUND. Diverticulosis of large intestine 11/18/2017 Assessment & Plan (11/18/2017 12:31 PM MOTOR OVERHAULER): Recent CT scan in October showed Diverticulosis without diverticulitis. Will continue to monitor. Pt. Has never had a colonoscopy and a referral was put in for her. Sleep disorder 11/18/2017 Assessment & Plan (10/13/2018 10:46 AM MOTOR OVERHAULER): Had sleep study Will f/u with Dr. Herrera Assessment & Plan (11/18/2017 12:55 PM MOTOR OVERHAULER): Pt has trouble going to sleep, staying asleep. Wakes up frequently up to 8-10 times per day. She is fatigued all the time and does not wake up refreshed. She snores and wakes up coughing and some choking sensations. Potential COLIN could be making her HTN worse. Will need to see neurology for sleep disorder. Also started Elavil 25 mg at bedtime to help with sleep. Tobacco abuse 11/18/2017 Assessment & Plan (01/27/2018 10:52 AM CDT): Quit Smoking https://smokefree.gov/ Nicotine replacement therapy (NRT) is the most commonly used family of quit smoking medications. NRT reduces withdrawal feelings by giving you a small controlled amount of nicotine?but none of the other dangerous chemicals found in cigarettes. This small amount of nicotine helps satisfy your craving for nicotine and reduces the urge to smoke. NRT can t do all the work. It can help with withdrawal and cravings. But it won t completely take away the urge to smoke. Even if you use NRT to help you stop smoking, quitting can still be hard. Combining NRT with other strategies can improve your chances of quitting and staying quit. To give yourself the best chance for success, explore other quit methods you can combine with medication. Also think about: Developing a quit plan. Using quit programs such as Smoke[employer] or calling a quitline. Using the [employer] peggy for tips and inspiration to help you be smokefree. Prepare, Reduce creavings and Triggers, Reduce stress, Get Active, Eat Healthy Gum, Patches, Inhaler, lozenges, nasal spray or medications like Wellbutrin, Chantix Remind yourself of the rewards of quitting to help yourself stay on track: 20 minutes: heart rate, blood pressure drop 12 hours: carbon monoxide in blood stream drops to normal 2 weeks-3 months: circulation, lung function improve; heart attack risk begins to drop 1-9 months: cough less, breathe easier 1 year: risk of coronary heart disease cut in half 2-5 years: risk of cancer of mouth, throat, esophagus, bladder cut in half; stroke risk is reduced to that of a nonsmoker 10 years: half as likely to from lung cancer; risk of kidney or pancreatic cancer decreases 15 years: risk of coronary heart disease same as non-smoker s risk EXTRA MONEY Assessment & Plan (12/30/2017 9:18 PM CDT): Quit Smoking https://smokefree.gov/ Nicotine replacement therapy (NRT) is the most commonly used family of quit smoking medications. NRT reduces withdrawal feelings by giving you a small controlled amount of nicotine?but none of the other dangerous chemicals found in cigarettes. This small amount of nicotine helps satisfy your craving for nicotine and reduces the urge to smoke. NRT can t do all the work. It can help with withdrawal and cravings. But it won t completely take away the urge to smoke. Even if you use NRT to help you stop smoking, quitting can still be hard. Combining NRT with other strategies can improve your chances of quitting and staying quit. To give yourself the best chance for success, explore other quit methods you can combine with medication. Also think about: Developing a quit plan. Using quit programs such as SmokefreeTXT or calling a quitline. Using the [employer]ggy for tips and inspiration to help you be smokefree. Prepare, Reduce creavings and Triggers, Reduce stress, Get Active, Eat Healthy Gum, Patches, Inhaler, lozenges, nasal spray or medications like Wellbutrin, Chantix Remind yourself of the rewards of quitting to help yourself stay on track: 20 minutes: heart rate, blood pressure drop 12 hours: carbon monoxide in blood stream drops to normal 2 weeks-3 months: circulation, lung function improve; heart attack risk begins to drop 1-9 months: cough less, breathe easier 1 year: risk of coronary heart disease cut in half 2-5 years: risk of cancer of mouth, throat, esophagus, bladder cut in half; stroke risk is reduced to that of a nonsmoker 10 years: half as likely to from lung cancer; risk of kidney or pancreatic cancer decreases 15 years: risk of coronary heart disease same as non-smoker s risk EXTRA MONEY Pt. Still smoking but has cut down r/t acute bronchitis. She verbalized the understanding of the importance of trying to quit smoking but is not quit ready to quit completely Assessment & Plan (12/09/2017 10:14 AM MOTOR OVERHAULER): Quit Smoking https://smokefree.gov/ Nicotine replacement therapy (NRT) is the most commonly used family of quit smoking medications. NRT reduces withdrawal feelings by giving you a small controlled amount of nicotine?but none of the other dangerous chemicals found in cigarettes. This small amount of nicotine helps satisfy your craving for nicotine and reduces the urge to smoke. NRT can t do all the work. It can help with withdrawal and cravings. But it won t completely take away the urge to smoke. Even if you use NRT to help you stop smoking, quitting can still be hard. Combining NRT with other strategies can improve your chances of quitting and staying quit. To give yourself the best chance for success, explore other quit methods you can combine with medication. Also think about: Developing a quit plan. Using quit programs such as SmokefreeTXT or calling a quitline. Using the [employer] for tips and inspiration to help you be smokefree. Prepare, Reduce creavings and Triggers, Reduce stress, Get Active, Eat Healthy Gum, Patches, Inhaler, lozenges, nasal spray or medications like Wellbutrin, Chantix Remind yourself of the rewards of quitting to help yourself stay on track: 20 minutes: heart rate, blood pressure drop 12 hours: carbon monoxide in blood stream drops to normal 2 weeks-3 months: circulation, lung function improve; heart attack risk begins to drop 1-9 months: cough less, breathe easier 1 year: risk of coronary heart disease cut in half 2-5 years: risk of cancer of mouth, throat, esophagus, bladder cut in half; stroke risk is reduced to that of a nonsmoker 10 years: half as likely to from lung cancer; risk of kidney or pancreatic cancer decreases 15 years: risk of coronary heart disease same as non-smoker s risk EXTRA MONEY Assessment & Plan (11/18/2017 12:45 PM MOTOR OVERHAULER): Counseling provided. Pt. Wants to stop smoking. She smoked x 30 yrs then quit for 12 then started the last 2 years. She smokes 1/2 ppd now and c/o of chronic bronchitis Tobacco abuse counseling 11/18/2017 Assessment & Plan (10/13/2018 10:45 AM MOTOR OVERHAULER): Still smoking average about 7/ day Smoking 33 years all together Encouraged to quit Assessment & Plan (06/13/2018 9:46 AM CDT): Quit Smoking https://smokefree.gov/ Nicotine replacement therapy (NRT) is the most commonly used family of quit smoking medications. NRT reduces withdrawal feelings by giving you a small controlled amount of nicotine?but none of the other dangerous chemicals found in cigarettes. This small amount of nicotine helps satisfy your craving for nicotine and reduces the urge to smoke. NRT can t do all the work. It can help with withdrawal and cravings. But it won t completely take away the urge to smoke. Even if you use NRT to help you stop smoking, quitting can still be hard. Combining NRT with other strategies can improve your chances of quitting and staying quit. To give yourself the best chance for success, explore other quit methods you can combine with medication. Also think about: Developing a quit plan. Using quit programs such as SmokefreeTXT or calling a quitline. Using the [employer] for tips and inspiration to help you be smokefree. Prepare, Reduce creavings and Triggers, Reduce stress, Get Active, Eat Healthy Gum, Patches, Inhaler, lozenges, nasal spray or medications like Wellbutrin, Chantix Remind yourself of the rewards of quitting to help yourself stay on track: 20 minutes: heart rate, blood pressure drop 12 hours: carbon monoxide in blood stream drops to normal 2 weeks-3 months: circulation, lung function improve; heart attack risk begins to drop 1-9 months: cough less, breathe easier 1 year: risk of coronary heart disease cut in half 2-5 years: risk of cancer of mouth, throat, esophagus, bladder cut in half; stroke risk is reduced to that of a nonsmoker 10 years: half as likely to from lung cancer; risk of kidney or pancreatic cancer decreases 15 years: risk of coronary heart disease same as non-smoker s risk EXTRA MONEY Smokes 10 cigarettes in 24 hours Assessment & Plan (01/27/2018 12:33 PM CDT): See above, Pt. Wants to quit. Down to 4-5 cigaretts per day. Is around secondary smoke everyday. Nicoderm patches ordered Assessment & Plan (11/18/2017 10:31 AM MOTOR OVERHAULER): Quit Smoking https://smokefree.gov/ Nicotine replacement therapy (NRT) is the most commonly used family of quit smoking medications. NRT reduces withdrawal feelings by giving you a small controlled amount of nicotine?but none of the other dangerous chemicals found in cigarettes. This small amount of nicotine helps satisfy your craving for nicotine and reduces the urge to smoke. NRT can t do all the work. It can help with withdrawal and cravings. But it won t completely take away the urge to smoke. Even if you use NRT to help you stop smoking, quitting can still be hard. Combining NRT with other strategies can improve your chances of quitting and staying quit. To give yourself the best chance for success, explore other quit methods you can combine with medication. Also think about: Developing a quit plan. Using quit programs such as SmokefreeTXT or calling a quitline. Using the [employer] for tips and inspiration to help you be smokefree. Prepare, Reduce creavings and Triggers, Reduce stress, Get Active, Eat Healthy Gum, Patches, Inhaler, lozenges, nasal spray or medications like Wellbutrin, Chantix Remind yourself of the rewards of quitting to help yourself stay on track: 20 minutes: heart rate, blood pressure drop 12 hours: carbon monoxide in blood stream drops to normal 2 weeks-3 months: circulation, lung function improve; heart attack risk begins to drop 1-9 months: cough less, breathe easier 1 year: risk of coronary heart disease cut in half 2-5 years: risk of cancer of mouth, throat, esophagus, bladder cut in half; stroke risk is reduced to that of a nonsmoker 10 years: half as likely to from lung cancer; risk of kidney or pancreatic cancer decreases 15 years: risk of coronary heart disease same as non-smoker s risk EXTRA MONEY Type 2 diabetes mellitus wit h hyperglycemia, without long-term current use of insulin 11/18/2017 Assessment & Plan (09/21/2024 7:48 PM MOTOR OVERHAULER): Chronic, overall well controlled, Hemoglobin A1c 6.6%, at goal Counseled on diet and exercise Continue taking Jardiance 10 mg oral daily Continue Trulicity 1.5 mg SQ weekly - recommend annual dilated eye exam - follow up in 6 months Assessment & Plan (06/24/2024 11:00 AM CDT): Chronic problem. A1c at goal but increased from 6.7% 03/30/24 to now 7.0% Current medications: Jardiance 10mg daily Trulicity 1.5mg weekly UTD on DM eye exam (03/18/24 no DMR/DME) UTD on labs. Discussed with Tracy Roth: Strive for regular exercise (30min most days) and diet (get at least 4-5 servings of fruit and veggies daily, avoid processed foods, increase lean protein intake and decrease carb portions as well as fruit juices, regular soda & desserts). Watch carbs and simple sugars. Check the blood sugar: BID. Check the feet daily for skin breakdown and infection. Assessment & Plan (04/05/2024 7:33 PM CDT): Chronic, improving control Hemoglobin A1c 6.7%, at goal Counseled on diet and exercise Stop Januvia Continue taking Jardiance 10 mg oral daily Start Trulicity 0.75 mg SQ weekly for 4 weeks than increase to 1.5 mg SQ weekly - labs today - recommend annual dilated eye exam - follow up in 3 months Assessment & Plan (09/14/2021 12:33 PM MOTOR OVERHAULER): Chronic, uncontrolled, worsening A1c today 8.0% Counseled on diet and exercise Advised to increase metformin to 1000 mg oral twice daily Continue Januvia 100 mg oral daily Daily foot care Annual dilated eye exam Follow-up in 4 months Assessment & Plan (01/31/2021 9:56 PM CDT): Chronic , uncontrolled, worsening A1c - 7.6 % Counseled on diet and exercise Start taking Metformin 500 mg oral twice daily after meals Continue taking Januvia 100 mg oral daily Keep checking BS at home Daily foot care Will try to obtain pt last eye exam Follow up in 6 months Assessment & Plan (05/04/2020 9:33 AM CDT): Chronic, uncontrolled , HbA1c - 7.5 % - stop Glipizide - continue Metformin and Januvia the same - start Steglatro 15 mg oral daily - advise good oral hydration - do labs today - counseled on diet and exercise - educated on hypoglycemia - keep checking blood sugars - follow up in 3 months with BS log Assessment & Plan (06/13/2018 1:34 PM CDT): Diabetes is worsening. Last A1C in March was 10. Will check A1 C today AIC still elevated and is at 9 today Will add Januvia it is on her insurance formulary Medication changes per orders. Diabetes will be reassessed in 3 months. Reviewed past medication, medical, surgical, family, social, nutrition and activity history. Education for progression of diabetes from hyperinsulinemia to requiring insulin. Education on lifestyle modification to reduce those risk of Complications, carbohydrate counting, label reading, We discussed need for eating meals same time each day eating the same number of carbohydrates each meal to maintain glucose. Medication prescribed today the risk and benefits were discussed . Education for diabetic sick day, education for contacting the Nurse Practitioner , discussed need for nightly foot checks, adequate foot care, appropriate shoe fitting type and structure, never wear shoes without socks to avoid skin injury. Potential complications of Diabetes are: decrease kidney function-Nephropathy, blindness-diabetic retinopathy, Nerve damage and pain-Neuropathy, Coronary Heart Disease, Peripheral Vascular Disease, and Stroke. Others include gastroparesis, diarrhea, sexual dysfunction, skin problems. Reviewed the ABC's of DM- A. Baby Aspirin Daily, Know your A1C and strive to reach your goal, Annual MicroAlbuminuria B. Maintain a good BP blood pressure! BMI- goal for BMI is 20-25. C. Cessation of Smoking, Decrease your CHOLESTEROL. Check your Creatinine (kidney function) at least annually. Carb Counting, CHECK your Blood Sugar! D. Diet, Dental Exam, Dietitician E. Exercise, EYE Exam F. FOOT Exams G. Goals HbA1C less than 7, Fasting blood sugar 70-130, 2 hour post prandial blood sugar less than 180. H. S/S of hypoglycemia and always have something for Treatment; Glucose Tabs, candy, juice... I. Immunizations up to date. S. Sexual dysfunction Pt. Needs to wear shoes and not go bare footed. Needs to use a good moisturizer and inspect feet daily. Pt. Is due for f/u with eye doctor Assessment & Plan (03/11/2018 1:11 PM CDT): Diabetes is worsening. Increase Metformin to 1000mg BID Identity Management Developer referral. Diabetes will be reassessed in 3 months.Needs to get A1c Checked. Has had several rounds of steroids for chronic bronchitis exacerbations Reviewed past medication, medical, surgical, family, social, nutrition and activity history. Needs adequate foot care, appropriate shoe fitting type and structure, never wear shoes without socks to avoid skin injury. Potential complications of Diabetes are: decrease kidney function-Nephropathy, blindness-diabetic retinopathy, Nerve damage and pain-Neuropathy, Coronary Heart Disease, Peripheral Vascular Disease, and Stroke. Others include gastroparesis, diarrhea, sexual dysfunction, skin problems. Reviewed the ABC's of DM- A. Baby Aspirin Daily, Know your A1C and strive to reach your goal, Annual MicroAlbuminuria B. Maintain a good BP blood pressure! BMI- goal for BMI is 20-25. C. Cessation of Smoking, Decrease your CHOLESTEROL. Check your Creatinine (kidney function) at least annually. Carb Counting, CHECK your Blood Sugar! D. Diet, Dental Exam, Dietitician E. Exercise, EYE Exam F. FOOT Exams G. Goals HbA1C less than 7, Fasting blood sugar 70-130, 2 hour post prandial blood sugar less than 180. H. S/S of hypoglycemia and always have something for Treatment; Glucose Tabs, candy, juice... I. Immunizations up to date. S. Sexual dysfunction Pt. Is up to date with eye exam Assessment & Plan (12/30/2017 9:27 PM CDT): Diabetes is improving with treatment. Continue current treatment regimen. Diabetes will be reassessed in 3 months.Microalbumin to be done. Will check feet at next visit. BS range 120-160's per patent. Assessment & Plan (12/09/2017 4:28 PM MOTOR OVERHAULER): Diabetes is improving with treatment. Dietary recommendations for ADA diet. Diabetes will be reassessed in 3 months. Reviewed past medication, medical, surgical, family, social, nutrition and activity history. Education for progression of diabetes from hyperinsulinemia to requiring insulin. Education on lifestyle modification to reduce those risk of Complications, carbohydrate counting, label reading, need 3g fiber in all grains or more, rx 6- 10 low carbohydrate vegetable servings a day, 2-3 dairy, 2-3 protein lean, 45-50g tid and 15g snack bid. We discussed need for food diary and utilizing the diary as a tool to plan meals. We discussed need for eating meals same time each day eating the same number of carbohydrates each meal to maintain glucose. Medication prescribed today the risk and benefits were discussed . Education for diabetic sick day, education for contacting the Nurse Practitioner , discussed need for nightly foot checks, adequate foot care, appropriate shoe fitting type and structure, never wear shoes without socks to avoid skin injury. Potential complications of Diabetes are: decrease kidney function-Nephropathy, blindness-diabetic retinopathy, Nerve damage and pain-Neuropathy, Coronary Heart Disease, Peripheral Vascular Disease, and Stroke. Others include gastroparesis, diarrhea, sexual dysfunction, skin problems. Reviewed the ABC's of DM- A. Baby Aspirin Daily, Know your A1C and strive to reach your goal, Annual MicroAlbuminuria B. Maintain a good BP blood pressure! BMI- goal for BMI is 20-25. C. Cessation of Smoking, Decrease your CHOLESTEROL. Check your Creatinine (kidney function) at least annually. Carb Counting, CHECK your Blood Sugar! D. Diet, Dental Exam, Dietitician E. Exercise, EYE Exam F. FOOT Exams G. Goals HbA1C less than 7, Fasting blood sugar 70-130, 2 hour post prandial blood sugar less than 180. H. S/S of hypoglycemia and always have something for Treatment; Glucose Tabs, candy, juice... I. Immunizations up to date. S. Sexual dysfunction Hb AIC on 10/24/17 was 7.5 will recheck AIC Assessment & Plan (11/18/2017 10:34 AM MOTOR OVERHAULER): Diabetes is newly identified. Dietary recommendations for ADA diet. Diabetes will be reassessed in 3 months. Reviewed past medication, medical, surgical, family, social, nutrition and activity history. Education for progression of diabetes from hyperinsulinemia to requiring insulin. Education on lifestyle modification to reduce those risk of Complications, carbohydrate counting, label reading, need 3g fiber in all grains or more, rx 6- 10 low carbohydrate vegetable servings a day, 2-3 dairy, 2-3 protein lean, 45-50g tid and 15g snack bid. We discussed need for food diary and utilizing the diary as a tool to plan meals. We discussed need for eating meals same time each day eating the same number of carbohydrates each meal to maintain glucose. Medication prescribed today the risk and benefits were discussed . Education for diabetic sick day, education for contacting the Nurse Practitioner , discussed need for nightly foot checks, adequate foot care, appropriate shoe fitting type and structure, never wear shoes without socks to avoid skin injury. Potential complications of Diabetes are: decrease kidney function-Nephropathy, blindness-diabetic retinopathy, Nerve damage and pain-Neuropathy, Coronary Heart Disease, Peripheral Vascular Disease, and Stroke. Others include gastroparesis, diarrhea, sexual dysfunction, skin problems. Reviewed the ABC's of DM- A. Baby Aspirin Daily, Know your A1C and strive to reach your goal, Annual MicroAlbuminuria B. Maintain a good BP blood pressure! BMI- goal for BMI is 20-25. C. Cessation of Smoking, Decrease your CHOLESTEROL. Check your Creatinine (kidney function) at least annually. Carb Counting, CHECK your Blood Sugar! D. Diet, Dental Exam, Dietitician E. Exercise, EYE Exam F. FOOT Exams G. Goals HbA1C less than 7, Fasting blood sugar 70-130, 2 hour post prandial blood sugar less than 180. H. S/S of hypoglycemia and always have something for Treatment; Glucose Tabs, candy, juice... I. Immunizations up to date. S. Sexual dysfunction Fibromyalgia 11/18/2017 Assessment & Plan (06/13/2018 1:02 PM CDT): Increase Gabapentin to 300 mg TID. Pt To titrate up slowly to this dose over 3-4 weeks. Continue Elavil Flexeril as needed Assessment & Plan (01/27/2018 12:33 PM CDT): Needs to make appointment with Dr. Carbone Assessment & Plan (12/30/2017 9:35 PM CDT): Pt. With history of fibromyalgia.Has multiple trigger points throughout her body along with fatigue, trouble sleeping, anxiety. Hip x-rays in 10/2017 were normal. Has tried Lyrica in the past but did not tolerate side effects. Did start pt. On Elavil originally when pt. Did not have insurance along with other medications that were on the $4 list at [facility]-Flexeril, Celexa (for anxiety). Will add Neurontin today. Pt to start slowly and just take one at bedtime. Encourage pt. To exercise and stop smoking. She does walk with her dogs. Will refer her to Rheumatology and get baseline RA And SON labs. Assessment & Plan (11/18/2017 12:54 PM MOTOR OVERHAULER): Pt states she was diagnosed in 2009. She use to be on Lyrica but had some decrease in kidney function so stopped taking it. I will start her on a Trial of amitriptyline 50 mg take 1/2 tablet at bedtime. The 50 mg tablets were ordered so she can cut them in half. This will also help with the cost. This is also on the $4 list at [facility]. She also c/o of numbness and tingling in her feet and legs and hands. In addition, start Citalopram 20 mg po daily. She is to start 1/2 tab for a week then a whole tablet. Cyclobenzaprine 5 mg TID was started for muscle spasms and her fibromyalgia. Acute cystitis without hematuria 11/18/2017 Assessment & Plan (11/18/2017 12:46 PM MOTOR OVERHAULER): Complete antibiotic as prescribed Do not hold your urine. Urinate as soon as you feel the need to go Drink plenty of water and fluids. Limit alcohol, caffeine, and citrus juices- They will irritate the bladder Wipe front to back & wear cotton underwear Try emptying your bladder before and after having sexual intercourse Follow up with your PCP if you are not getting better If you have severe back, flank, or groin pain with nausea/vomiting or are unable to get comfortable from the pain, please go to ER for further treatment Tylenol for pain Encounter for screening colonoscopy 11/18/2017 Encounter for screening mammogram for breast can cer 11/18/2017 Annual physical exam 11/18/2017 Assessment & Plan (11/18/2017 12:48 PM MOTOR OVERHAULER): Pt stated she just had a well women's exam. She stated she told the doctor that she had some vaginal bleeding. We will need to get the office notes and plans. Referrals for Laura and colonoscopy given. Social History Tobacco Use Types Packs/Day Years Used Date Smoking Tobacco: Former Cigarettes 0.8 38 1 11/10/1984 - 09/09/2023 Smokeless Tobacco: Never Comments:Now smoking few cig arettes per week , and marijuana Alcohol Use Standard Drinks/Week Comments Not Currently 0 (1 standard drink = 0.6 oz pur e alcohol) AUDIT-C Answer Date Recorded Q1: How often do you have a drink containing alc ohol? Never 09/21/2024 Average Number of Drinks Not on file 024 Frequency of Binge Drinking Not on file 09/06 PHQ-2 Answer Date Recorded PHQ-2 Total Score (If total score is 3 or more points, staff should administer the PHQ-9) 3 09/14/2021 Comments No Sex and Gender Information Value Date Recorded Sex Assigned at Not on file Legal Sex Female 9:51 AM MOTOR OVERHAULER Gender Identity Female 01/31/2021 7:50 AM CDT Sexual Orientation Straight 01/31/2021 7: 50 AM CDT Last Filed Vital Signs Vital Sign Reading Time Taken Comments Blood Pressure 120/80 09/21/2024 2:53 PM MOTOR OVERHAULER Pulse 70 09/21/2024 2:53 PM MOTOR OVERHAULER Temperature 36.3 C (97.3 F) 09/21/2024 10:01 AM MOTOR OVERHAULER Respiratory Rate 17 09/21/2024 2:53 PM MOTOR OVERHAULER Oxygen Saturation 95% 09/21/2024 10:01 AM MOTOR OVERHAULER Inhaled Oxygen Concentration - - Weight 82.1 kg (181 lb) 09/21/2024 2:53 PM MOTOR OVERHAULER Height 165.1 cm (5' 5) 09/21/2024 2:53 PM MOTOR OVERHAULER Body Mass Index 30.12 09/21/2024 2:53 PM MOTOR OVERHAULER Plan of Treatment Not on file Procedures Procedure Name Priority Date/Time Associated Diagnosis Comments POCT HEMOGLOBIN A1C Routine 09/21/2024 2 :56 PM MOTOR OVERHAULER Type 2 diabetes mellitus with hyperglycemia, without long-term current use of insulin (HCC) CT LUNG CANCER SCREENING Schedule Routine, Read Routine (OP Routine) 09/11/2024 7:32 AM MOTOR OVERHAULER Cigarette nicotine dependence in remission EGFR Routine 03/30/2024 1:49 PM CDT Type 2 diabetes mellitus with hyperglycemia, without long-term current use of insulin (HCC) Hypertension associated with diabetes (HCC) Hyperlipidemia associated with type 2 diabetes mellitus (HCC) LIPID PANEL Routine 03/30/2024 1:49 PM CDT Type 2 diabetes mellitus with hyperglycemia, without long-term current use of insulin (HCC) Hyperlipidemia associated with type 2 diabetes mellitus (HCC) ALBUMIN CREATININE RATIO, URINE Routine 03/30/2024 1:49 PM CDT Type 2 diabetes mellitus with hyperglycemia, without long-term current use of insulin (HCC) Hypertension associated with diabetes (HCC) HM DIABETES EYE EXAM Routine 03/18/2024 8:16 AM CDT COLONOSCOPY 03/18/2018 10:40 AM CDT from Last 3 Months or Most Recently Relevant to Health Maintenance Results * POCT hemoglobin A1c (09/21/2024 2:56 PM MOTOR OVERHAULER) Hemoglobin A1C, POC 6.6 4.0 - 5.6 % Blood 09/21/2024 2:56 PM MOTOR OVERHAULER Katarzyna Swain MD POINT OF CARE TEST ORDERABLES Final Result * CT Lung Cancer Screening (09/11/2024 7:32 AM MOTOR OVERHAULER) Anatomical Region Laterality Modality Chest N/A Computed Tomogra phy 09/15/2024 8:44 AM MOTOR OVERHAULER Narrative 09/15/2024 9:00 AM MOTOR OVERHAULER EXAM DESCRIPTION: CT LUNG CANCER SCREENING REASON FOR STUDY: Screening CT of the chest in a former smoker with a 38 pack year smoking history. Additional history: None. TECHNIQUE: Low dose CT scan of the chest was performed without intravenous contrast using helical scanning technique. The exam extends from the lung apices through the lung bases. Automatic exposure control was used as a dose optimization technique. NOTE: This study was performed for the specific purposes of lung cancer screening and is not an alternative to diagnostic chest CT. RADIATION DOSE: CT dose index volume (CTDIvol) = 2.62 mGy COMPARISON: 09/10/2023, CT abdomen pelvis 10/24/2017 FINDINGS: SMOKING RELATED LUNG DISEASE: Mild emphysematous changes. Minimal bronchial wall thickening. LUNG NODULES: Multiple pulmonary nodules including: Scattered small and punctate calcified pulmonary nodules, likely sequela of previous granulomatous disease. 6 mm medial right upper lobe ground-glass nodule (3; 65). Unchanged 6 mm anterior left lower lobe ground-glass nodule. Unchanged lateral left upper lobe 5 mm ground-glass nodule (3; 143). CORONARY ARTERY CALCIFICATION: Severe. OTHER: Right posterolateral tracheal diverticulum (3; 19). Central airways are grossly patent. No focal consolidation, pneumothorax, or pleural effusion. Calcified atherosclerotic changes of the thoracic aorta without aneurysmal dilatation. Small hiatal hernia. Unremarkable appearance of the visualized thyroid. No pathologically enlarged lymphadenopathy. Similar-appearing low-density nodular thickening of the bvdl-uvbvpie-uoiy-right adrenal glands most suggestive of nodular hyperplasia. Indeterminate exophytic 1.9 cm hypodensity of the left lateral superior renal pole slightly increased when compared to 2018 (2; 306). Mild degenerative changes of the visualized spine. No aggressive appearing osseous lesions. No acute osseous abnormality. IMPRESSION: No new suspicious pulmonary nodule. Mild emphysematous changes. Minimal bronchial wall thickening which is nonspecific but may be seen with chronic bronchitis. Indeterminate left renal hypodensity slightly increased in size dating back to 2018. Recommend correlation with prior outside imaging if available, otherwise can consider further evaluation with abdominal MRI with and without contrast. Additional incidental and chronic findings as above. Lung-RADS category 2S: Benign appearance or behavior. Finding other than a pulmonary nodule which is potentially clinically significant. Recommendation: Low dose Screening CT of chest in 12 months. Additional recommendations as above. THIS IS AN ELECTRONICALLY VERIFIED FINAL REPORT 09/15/2024 9:00 AM - Electronically signed by Memo MCKINNON T: Report ID: [id number] Reading Location: [place] [address] us Sue Roland MD IMG CT PROCEDURES Final Resul t * eGFR (03/30/2024 1:49 PM CDT) eGFR >90 >=60 mL/min/1. 73 m2 Comment: Interpretive Data Reference Interval Normal >/= 90 mL/min/1.73m2 Mildly decreased* 60 - 89 mL/min/1.73m2 Mildly to moderately decreased 45 - 59 mL/min/1.73m2 Moderately to severely decreased 30 - 44 mL/min/1.73m2 Severely decreased 15 - 29 mL/min/1.73m2 Kidney Failure < 15 mL/min/1.73m2 *Relative to young adult level Estimated glomerular filtration rate is determined by the 2020 CKD-EPI equation recommended by the National Kidney Foundation (A Unifying Approach to GFR Estimation: Recommendations of the NKF-ASK Task Force on Reassessing the Inclusion of Race in Diagnosing Kidney Disease, JASN 2020). The CKD-EPI equation should not be used for patients with unstable renal function and has not been validated in children and those over 70. Current interpretive data was last reviewed 2021. Blood 03/30/2024 1:49 PM CDT 03/30/2024 8:39 PM CDT us Katarzyna Swani MD LAB BLOOD ORDERABLE S Final Result [facility] [id number] Department of Laboratories [place], [place] [id number] * Albumin Creatinine Ratio, Urine (03/30/2024 1:49 PM CDT) Albumin Ur 12.5 mg/L Comment: Interpretive Data No reference range established. Current interpretive data was last revised 2019. Creatinine Ur 66.9 mg/dL [facility] Comment: Interpretive Data No reference range established. Current interpretive data was last revised 2019. Albumin Creatinine Ratio, Ur 19 1 - 29 mg/g [facility] Urine 03/30/2024 1:49 PM CDT 03/30/2024 8:18 PM CDT us Katarzyna Swain MD LAB URINE ORDERABLE S Final Result [facility] [id number] Department [place] [address] * (ABNORMAL) Lipid panel (03/30/2024 1:49 PM CDT) Cholesterol 147 30 - 199 mg/dL Comment: Interpretive Data Ages < or = 19 years Acceptable: <170 mg/dL Borderline high: 170-199 mg/dL High: >or= 200 mg/dL Ages > or = 20 years Desirable: <200 mg/dL Borderline high: 200-239 mg/dL High: >or= 240 mg/dL Literature References: 1. Expert Panel on Integrated Guidelines for Cardiovascular Health and Risk Reduction in Children and Adolescents. Pediatrics 2011;128:S213 2. NCEP Expert Panel. Circulation 2004;110:227 Current Interpretive Data was last revised on 2018. Triglycerides 182(H) <=149 mg/dL [facility] Comment: Interpretive Data Ages < or = 9 years Acceptable: <75 mg/dL Borderline high: 75-99 mg/dL High: >or= 100 mg/dL Ages 10 to 20 years Acceptable: <90 mg/dL Borderline high: 90-129 mg/dL High: >or= 130 mg/dL Ages > or = 20 years Desirable: <150 mg/dL Borderline high: 150-199 mg/dL High: 200-499 mg/dL Very high: >or= 499 mg/dL Literature References: 1. Expert Panel on Integrated Guidelines for Cardiovascular Health and Risk Reduction in Children and Adolescents. Pediatrics 2011;128:S213 2. NCEP Expert Panel. Circulation 2004;110:227 Current Interpretive Data was last revised on 2018. HDL 34(L) >=40 mg/dL [facility] Comment: Interpretive Data Ages < or = 19 years Acceptable: >45 mg/dL Borderline low: 40-45 mg/dL Low: <40 mg/dL Ages > or = 20 years Desirable: >or= 60 mg/dL Low: <40 mg/dL Literature References: 1. Expert Panel on Integrated Guidelines for Cardiovascular Health and Risk Reduction in Children and Adolescents. Pediatrics 2011;128:S213 2. NCEP Expert Panel. Circulation 2004;110:227 Current Interpretive Data was last revised on 2018. LDL, calculated 77 <=129 mg/dL [facility] Comment: Interpretive Data Ages < or = 19 years Acceptable: <110 mg/dL Borderline high: 110-129 mg/dL High: >or= 130 mg/dL Ages > or = 20 years Optimal: <100 mg/dL Near optimal: 100-129 mg/dL Borderline high: 130-159 mg/dL High: >160 mg/dL Literature References: 1. Expert Panel on Integrated Guidelines for Cardiovascular Health and Risk Reduction in Children and Adolescents. Pediatrics 2011;128:S213 2. NCEP Expert Panel. Circulation 2004;110:227 Current Interpretive Data was last revised on 2018. Non-HDL Cholesterol 113 mg/dL [facility] Comment: Interpretive Data Ages < or = 19 years Acceptable: <120 mg/dL Borderline high: 120-144 mg/dL High: >145 mg/dL Ages > or = 20 years When triglycerides are >200 mg/dL, Non-HDL cholesterol is a secondary target of therapy with treatment goals that are 30 mg/dL greater than the LDL cholesterol target. Literature References: 1. Expert Panel on Integrated Guidelines for Cardiovascular Health and Risk Reduction in Children and Adolescents. Pediatrics 2011;128:S213 2. NCEP Expert Panel. Circulation 2004;110:227 Current Interpretive Data was last revised on 2018. Chol/HDL ratio 4 [facility] Blood 03/30/2024 1:49 PM CDT 03/30/2024 8:18 PM CDT us Katarzyna Swain MD LAB BLOOD ORDERABLE S Final Result [facility] [id number] Department [place] [address] * DIABETES EYE EXAM (03/18/2024 8:16 AM CDT) us Historical Provider HEALTH MAINTENANCE Edited Result - Final * COLONOSCOPY (03/18/2018 10:40 AM CDT) Anatomical Region Laterality Modality Other Narrative Procedure Note Basim Forde MD - 03/18/2018 10:40 AM CDT [facility] Patient Name: Tracy Roth Procedure Date: 03/18/2018 10:40 AM Date of : 1960 Admit Type: Outpatient Age: 58 Gender: Female Attending MD: Basim Llanos M.D. Room[facility] 2 Note Status: Finalized Procedure: Colonoscopy Indications: This is the patient's first colonoscopy, Screeningfor colorectal malignant neoplasm Referring MD: Ernestine Douglas, F.N.P. Providers: Basim Hankins M.D. Impression: - Non-thrombosed external hemorrhoids found onperianal exam. - The entire examined colon is normal. - No specimens collected. Recommendation: - Discharge patient to home. - Resume previous diet. - Continue present medications. - Repeat colonoscopy in 10 years for surveillance. - Return to primary care physician PRN. Medicines: Monitored Anesthesia Care Complications: No immediate complications. Estimated Blood Loss: Estimated blood loss: none. Procedure: Pre-Anesthesia Assessment: - Prior to the procedure, a History and Physical was performed, and patient medications and allergieswere reviewed. The patient's tolerance of previous anesthesia was also reviewed. The risks and benefitsof the procedure and the sedation options and riskswere discussed with the patient. All questions were answered, and informed consent was obtained. Prior Anticoagulants: The patient has taken aspirin, last dose was 1 day prior to procedure. ASA Grade Assessment: II - A patient with mild systemicdisease. After reviewing the risks and benefits, the patientwas deemed in satisfactory condition to undergo the procedure. The benefits, risks and alternatives of theprocedure and sedation were discussed and informed consent was obtained. All questions were answered. Please referto the signed informed consent document in the medical record. The scope was passed under direct vision.The Colonoscope [id number] was introducedthrough the anus and advanced to the the cecum, identifiedby appendiceal orifice and ileocecal valve. The colonoscopy was performed without difficulty. The patient tolerated the procedure well. The quality of the bowel preparation was good. Findings: The perianal exam findings include non-thrombosed externalhemorrhoids. The colon (entire examined portion) appeared normal. No polyps. Electronically signed by Basim Miranda M.D. Basim Hankins M.D. 03/18/2018 11:09:07 AM Number of Addenda: 0 Note Initiated On: 03/18/2018 10:40 AM Procedure Code(s): --- Professional --- G0121, Colorectal cancer screening; colonoscopy on individual not meeting criteria for high risk Diagnosis Code(s): --- Professional --- Z12.11, Encounter for screening for malignant neoplasm of colon K64.4, Residual hemorrhoidal skin tags CPT copyright 2017 [employer]. All rights reserved. The codes documented in this report are preliminary and upon systems tester reviewmay be revised to meet current compliance requirements. Recognized by the [employer] for promoting quality in endoscopy Basim Hankins MD ENDOSCOPY PROCEDUR ES Final Result from Last 3 Months or Most Recently Relevant to Health Maintenance Insurance [facility] Advance Directives For more information, please contact: [phone] * Full Code (Latest Code Status on File) Date Activated Date Inactivated Comments 03/18/2018 9:11 AM 03/18/2018 1:51 PM Care Teams Advisory Internship Relationship Specialty Start Date End Date Claude Philip MD PCP - General Emergency Medicine 07/02/23
--- OUTSIDE RECORDS SUMMARY | 2025-03-05 08:25 | XMS_ITS | Encounter Summary ---
Author Organization [facility] Address [address] [place] [address] Phone Care Team Providers Care Cutter Machine Tender Name Role Phone Ernestine Ag NP Primary Care Provider [phone] Alivia Keller NP Primary Care Provider [phone] No, Physician Primary Care Provider [phone] Danilo Dominguez MD Primary Care Provider Claude Philip MD Primary Care Provider [phone] Encounter Details Date Type Department Care Team (Late st Contact Info) Description 11/18/2017 Orders Only [facility] ProviderJozef [facility] [place] [address] Social History Tobacco Use Types Packs/Day Years Used Date Smoking Tobacco: Every Day Smokeless Tobacco: Never Comments:10-11 cigs a day Comments No Sex and Gender Information Value Date Recorded Sex Assigned at Not on file Legal Sex Female 9:51 AM MULTISKILL OPERATOR Gender Identity Female 01/31/2021 7:50 AM CDT Sexual Orientation Straight 01/31/2021 7: 50 AM CDT documented as of this encounter Plan of Treatment Not on file documented as of this encounter Procedures Procedure Name Priority Date/Time Associated Diagnosis Comments DISCHARGE LABORATORY CUMULATIVE REPORT 11/18/2017 12:00 AM MULTISKILL OPERATOR documented in this encounter Results * DISCHARGE LABORATORY CUMULATIVE REPORT (11/18/2017 12:00 AM MULTISKILL OPERATOR) Narrative 11/18/2017 12:00 AM MULTISKILL OPERATOR Ordered by an unspecified provider. us Historical Provider LAB BLOOD ORDERABLES Martita l Result documented in this encounter Visit Diagnoses Not on filedocumented in this encounter Care Teams Cutter Machine Tender Relationship Specialty Start Date End Date Ernestine Ag NP PCP - General Nurse Practitioner 11/18/17 02/15/19 Alivia Keller NP [address] [place] [id number] PCP - General Family Medicine 02/16/19 08/18/19 No, Physician PCP - General 08/19/19 03/15/20 Danilo Dominguez MD PCP - General Internal Medicine 03/16/20 07/01/23 Claude Philip MD PCP - General Emergency Medicine 07/02/23 documented as of this encounter
--- OUTSIDE RECORDS SUMMARY | 2025-03-05 08:25 | XMS_ITS | Clinical Summary ---
Author Organization [facility] Care Team Providers Care Glove Operator Name Role Phone Danilo Dominguez MD Primary Care Provider Allergies Active Allergy Reactions Criticality Noted Date Comments Iodine Anaphylaxis 01/13/2018 Shellfish Allergy Shortness of Breath,Swelling 07/03/2020 Medications albuterol (PROVENTIL HFA, VENTOLIN HFA) 108 (90 Base) MCG/ACT Aerosol Solution take 2 Puffs by inhalation every 4 hours as needed for Wheezing. Active aspirin 81 MG Chewable Tablet Take 81 mg by mouth daily. Active atorvastatin (LIPITOR) 20 MG Tablet Take 20 mg by mouth daily. Active citalopram (CELEXA) 20 MG Tablet Take 20 mg by mouth daily. Active lisinopril (PRINIVIL, ZESTRIL) 5 MG Tablet Take 5 mg by mouth daily. Active ketorolac (TORADOL) 10 MG Tablet Take 1 Tab by mouth every 6 hours as needed for Pain. 20 Tab 8 Active INCRUSE ELLIPTA 62.5 MCG/INH AEROSOL POWDER, BREATH ACTIVATED INL 1 PUFF PO QD 2 9 Active venlafaxine (EFFEXOR-XR) 75 MG CAPSULE SR 24 HR venlafaxine ER 75 mg capsule,extended release 24 hr Active montelukast (SINGULAIR) 10 MG Tablet montelukast 10 mg tablet 8 Active Mometasone Furo-Formoterol Fum 100-5 MCG/ACT Aerosol Dulera 100 mcg-5 mcg/actuation HFA aerosol inhaler Active Blood Glucose Monitoring Suppl (FREESTYLE LITE) Device U UTD 0 9 Active FREESTYLE LITE Strip U UTD. 3 9 Active FREESTYLE LANCETS Misc USE UTD. 3 9 Active metFORMIN (GLUCOPHAGE) 1000 MG Tablet Take 0.5 Tabs by mouth 2 times daily (with meals). 180 Tab 1 9 Active SITagliptin (JANUVIA) 100 MG Tablet Take 1 Tab by mouth daily. 90 Tab 1 9 Active FLUTICASONE-RIYA METEROL IN take by inhalation. Active glipiZIDE (GLUCOTROL) 5 MG Tablet Take 1 Tab by mouth 2 times daily. 180 Tab 0 Active Active Problems Problem Noted Date Diagnosed Date Type 2 diabetes mellitus wit h diabetic polyneuropathy, without long-term current use of insulin 07/10/2019 Class 1 obesity due to exces s calories with serious comorbidity and body mass index (BMI) of 31.0 to 31.9 in adult 07/10/2019 High blood pressure 07/10/2019 Tobacco use 07/10/2019 Hyperlipidemia 07/10/2019 Social History Tobacco Use Types Packs/Day Years Used Date Smoking Tobacco: Every Day Cigarettes Smokeless Tobacco: Never Tobacco Cessation:Ready to Q uit: No; Counseling Given: Yes Alcohol Use Standard Drinks/Week Comments No 0 (1 standard drink = 0.6 oz pur e alcohol) Sexually Active Control Partners Comments Yes Male Comments No Sex and Gender Information Value Date Recorded Sex Assigned at Not on file Legal Sex Female 1:19 PM MANAGER DATA WAREHOUSING Gender Identity Not on file Sexual Orientation Not on file Last Filed Vital Signs Vital Sign Reading Time Taken Comments Blood Pressure 197/92 07/03/2020 8:06 AM CDT Pulse 90 07/03/2020 8:06 AM CDT Temperature 36.7 C (98 F) 07/03/2020 8:06 AM CDT Respiratory Rate 16 07/03/2020 8:06 AM CDT Oxygen Saturation 97% 07/03/2020 8:06 AM CDT Inhaled Oxygen Concentration - - Weight 78 kg (172 lb) 07/03/2020 8:06 AM CDT Height 165.1 cm (5' 5) 07/03/2020 8:06 AM CDT Body Mass Index 28.62 07/03/2020 8:06 AM CDT Plan of Treatment Health Maintenance Due Date Last Done Comments Diabetes: Eye Exam 1962 Diabetes: Foot Exam 1962 Hepatitis C Virus (HCV) Screening 1962 TdaP Immunization 1962 Pneumococcal Immunization (5 0+ years) (1 of 2 - PCV) 1981 Colonoscopy 2007 Colorectal Cancer Screening 2007 Cologuard 2012 Immunochemical Fecal Occult Blood 2012 Zoster Immunization (1 of 2) 2012 Diabetes: Nephropathy Screening 12/05/2020 12/06/2019, 01/13/2018 Respiratory Syncytial Virus (RSV) Immunization (Adult) (1 - Risk 60-74 years 1-dose series) 2022 Diabetes: Hemoglobin A1c 06/30/2022 022, 05/04/2020, 10/08/2019 SARS-COV-2 Immunization ( season) 2024 Influenza Immunization (Seas on Ended) 2025 12/28/2021, 06/26/2019 Mammogram Discontinued 01/13/2022 Hepatitis B Immunization Aged Out No longer eligible based on patient's age to complete this topic Human Papillomavirus (HPV) Immunization Aged Out No longer eligible based on patient's age to complete this topic Meningococcal Immunization (ACWY) Aged Out No longer eligible based on patient's age to complete this topic Rotavirus Immunization Aged Out No lo nger eligible based on patient's age to complete this topic Procedures Procedure Name Priority Date/Time Associated Diagnosis Comments BUCK SCREENING BILATERAL DIGITAL W CAD W MIRTHA Routine 01/13/2022 12:00 PM CDT Encounter for mammogram to establish baseline mammogram CMP (COMPREHENSIVE METABOLIC PANEL) STAT 12/06/2019 3:24 PM MANAGER DATA WAREHOUSING from Last 3 Months or Most Recently Relevant to Health Maintenance Results * BUCK SCREENING BILATERAL DIGITAL W CAD W MIRTHA (01/13/2022 12:00 PM CDT) Anatomical Region Laterality Modality breast Bilateral Mammography 01/13/2022 11:5 9 AM CDT Narrative 01/17/2022 4:21 PM CDT - BUCK SCREENING BILATERAL DIGITAL W CAD W MIRTHA BILATERAL DIGITAL SCREENING MAMMOGRAM 3D/2D WITH CAD WITH MEDIOLATERAL OBLIQUE CRANIOCAUDAL: 01/13/2022 The study was acquired using digital technology and interpreted from soft copy. Current study was also evaluated with ICAD version 7.2. 2D digital mammographic views, as well as 3D digital tomosynthesis were performed in the CC and MLO projections. CLINICAL: Routine screening. Patient has no complaints. No personal history of cancer. No family history of breast cancer. COMPARISONS: Comparison is made to exam dated: 07/14/2019 [facility]. BREAST TISSUE:There are scattered fibroglandular densities in both breasts. FINDINGS: There are benign calcifications in the left breast. No significant masses, calcifications, or other findings are seen in either breast. There has been no significant interval change. IMPRESSION: BI-RAD 2 BENIGN There is no mammographic evidence of malignancy. A 1 year screening mammogram is recommended. A letter will be sent to the patient with these results. The patient will be entered into a reminder system with a target due date of 1 year for her next screening exam. Electronically signed by: Jimena hinds/rossy:01/17/2022 15:31:57 Advanced Practice Registered Nurse(s): RT Minnie(R)(M), [facility] letter sent: Normal Exam Reading location: [facility] BI-RADS: 2 Benign Procedure Note Jimena Goldberg MD - 01/17/2022 - BUCK SCREENING BILATERAL DIGITAL W CAD W MIRTHA BILATERAL DIGITAL SCREENING MAMMOGRAM 3D/2D WITH CAD WITH MEDIOLATERAL OBLIQUE CRANIOCAUDAL: 01/13/2022 The study was acquired using digital technology and interpreted from soft copy. Current study was also evaluated with ICAD version 7.2. 2D digital mammographic views, as well as 3D digital tomosynthesis were performed in the CC and MLO projections. CLINICAL: Routine screening. Patient has no complaints. No personal history of cancer. No family history of breast cancer. COMPARISONS: Comparison is made to exam dated: 07/14/2019 [facility]. BREAST TISSUE:There are scattered fibroglandular densities in both breasts. FINDINGS: There are benign calcifications in the left breast. No significant masses, calcifications, or other findings are seen in either breast. There has been no significant interval change. IMPRESSION: BI-RAD 2 BENIGN There is no mammographic evidence of malignancy. A 1 year screening mammogram is recommended. A letter will be sent to the patient with these results. The patient will be entered into a reminder system with a target due date of 1 year for her next screening exam. Electronically signed by: Jimena Goldberg M.D. ab/penrad:01/17/2022 15:31:57 Advanced Practice Registered Nurse(s): Janee Walton RT(R)(M), [facility] letter sent: Normal Exam Reading location: [facility] BI-RADS: 2 Benign Danilo Dominguez MD IM MAMMO ORDERABLES Final Result * (ABNORMAL) CMP (Comprehensive Metabolic Panel) (12/06/2019 3:24 PM MANAGER DATA WAREHOUSING) SODIUM 136 136 - 144 mmol/L 12/06/2019 4:24 PM [facility] POTASSIUM 4.0 3.5 - 5.1 mmol/L 12/06/2019 4:24 PM [facility] CHLORIDE 98(L) 100 - 110 mmol/L 12/06/2019 4:24 PM [facility] CO2, VENOUS 24 22 - 32 mmol/L 12/06/2019 4:24 PM [facility] ANION GAP 18.0 8.0 - 20.0 mmol/L 12/06/2019 4:24 PM [facility] GLUCOSE 131(H) 70 - 99 mg/dL 12/06/2019 4:24 PM [facility] BUN 15 6 - 20 mg/dL 12/06/2019 4:24 PM [facility] CREATININE, BLOOD 0.64 0.60 - 1.10 mg/dL 12/06/2019 4:24 PM [facility] BUN/CREATININE RATIO 23(H) 12 - 20 ratio 12/06/2019 4:24 PM [facility] TOTAL PROTEIN 7.0 6.0 - 8.3 g/dL 12/06/2019 4:24 PM [facility] ALBUMIN 4.2 3.5 - 5.2 g/dL 12/06/2019 4:24 PM MANAGER DATA WAREHOUSING [facility] Comment: The colormetric methods used for the determination of Albumin may lead to falsely elevated test results in patients suffering from renal failure or insufficiency due to interference with other proteins. A/G RATIO 1.5 1.0 - 2.0 12/06/2019 4:24 PM MANAGER DATA WAREHOUSING [facility] CALCIUM 9.5 8.9 - 10.3 mg/dL 12/06/2019 4:24 PM MANAGER DATA WAREHOUSING [facility] T BILI <=0.2 <=1.2 mg/dL 12/06/2019 4:24 PM [facility] SGOT (AST) 11 <=32 U/L 12/06/2019 4:24 PM [facility] SGPT (ALT) 14 <=33 U/L 12/06/2019 4:24 PM [facility] ALKALINE PHOSPHATASE 85 35 - 105 U/L 12/06/2019 4:24 PM [facility] GFR, EST. NONAFRICAN >60 >=60 12/06/2019 4:24 PM MANAGER DATA WAREHOUSING [facility] GFR, EST. >60 >=60 020 4:24 PM [facility] Comment: Creatinine Clearance is the preferred criteria for selecting drug dose adjustments in renally impaired patients. The GFR is provided as additional pertinent clinical information. GFR is reported in mL/min/1.73 sq m. Blood specimen (specimen) Venous Catheter (IV) / Unknown 12/06/2019 3:24 PM MANAGER DATA WAREHOUSING 12/06/2019 3:51 PM MANAGER DATA WAREHOUSING Jenniffer Ozuna Page PAC CHEMISTRY ORDERABLES Final R esult [facility] [address] [place] [address] from Last 3 Months or Most Recently Relevant to Health Maintenance Insurance MEDICAID [employer] Care Teams Glove Operator Relationship Specialty Start Date End Date Danilo Dominguez MD [address] [place] [address] [address] [place] [address] PCP - General Internal Medicine 03/12/19
--- OUTSIDE RECORDS SUMMARY | 2025-03-05 08:25 | XMS_ITS | Encounter Summary ---
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 Name Role Phone Ernestine Ag NP Primary Care Provider [phone] Alivia Keller NP Primary Care Provider [phone] No, Physician Primary Care Provider [phone] Danilo Dominguez MD Primary Care Provider Claude Philip MD Primary Care Provider [phone] Encounter Details Date Type Department Care Team (Late st Contact Info) Description 12/30/2017 Orders Only [facility] ProviderJozef MD [facility] [place] [address] Social History Tobacco Use Types Packs/Day Years Used Date Smoking Tobacco: Every Day Smokeless Tobacco: Never Comments:10-11 cigs a day Comments No Sex and Gender Information Value Date Recorded Sex Assigned at Not on file 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 us Historical Provider LAB BLOOD ORDERABLES Martita l Result documented in this encounter Visit Diagnoses Not on filedocumented in this encounter Care Teams Sugar Plantation Manager Relationship Specialty Start Date End Date Ernestine Ag NP PCP - General Nurse Practitioner 11/18/17 02/15/19 Alivia Keller NP [address] [place] [id number] PCP - General Family Medicine 02/16/19 08/18/19 No, Physician PCP - General 08/19/19 03/15/20 Danilo Dominguez MD PCP - General Internal Medicine 03/16/20 07/01/23 Claude Philip MD PCP - General Emergency Medicine 07/02/23 documented as of this encounter
--- OUTSIDE RECORDS SUMMARY | 2025-03-05 08:25 | XMS_ITS | Data Portability ---
Author Organization [place] [employer], Main Office Address [address] [place] [address] Care Team Providers Care Bingo Usher Name Role Phone OSCAR VIDES Primary Care Provider OSCAR VIDES Referring Provider Assessment Encounter Date Assessment Date Assessment LastModified by Organization Details LastModified Time 04/30/2023 04/30/2023 Patient presents foot pain right. The pain starts in her ankle goes up to her tibial shaft and up the leg. It is worse with activity somewhat relieved by rest. Of note is the fact she had an ankle fracture a year ago where she broke the lateral malleolus will Luis however that is totally healed. On exam she is tender along the course of the posterior tibial tendon she has difficulty doing a single leg heel rise. Neurologically she is grossly intact and she is tender on the posterior aspect of the tibia as I palpate. I think she has a combination posterior tibial tendinitis and maybe some bejarano splints we will try an arch support anti-inflammatory medication gentle stretching and time. I gave her Voltaren for prescription drug management. Because her diabetes on reluctant to give her prednisone. We will get an arch support see her back in 6 weeks discussed. deepa Not available 04/30/2023 11:20:57 Plan of Treatment Reminders Order Date Submit Date Provider Last Modified By Organization Details Last Modified Time Details Appointments None record ed. Lab None record ed. Referral None record ed. Procedures None record ed. Surgeries None record ed. Imaging None record ed. Medication Orders None record ed. Patient TargetsNo targets recorded. Patient InstructionsNo instructions recorded. Reason for Referral None Reported. Results Created Date Observation Date Name Description Value Unit Range Abnormal Flag Note LastModifiedBy Organization Detail LastModifiedTime 11/20/19 22 11/17/2021 XR, ankle , 3 or more view No observ ation record ed. [id number] Not Available 12/05/2022 21:31:04 11/20/19 22 11/17/2021 XR, tibia + fibul a No observ ation record ed. [id number] Not Available 12/05/2022 21:31:04 11/28/19 22 XR, ankle , 3 or more view No observ ation record ed. [id number] [email or web address] [address], [place], [address], 12/05/2022 21:31:04 12/20/19 22 XR, ankle No observ ation record ed. [id number] [email or web address] [address], [place], [address], 12/05/2022 21:31:04 01/10/20 22 XR, ankle No observ ation record ed. [id number] [email or web address] [address], [place], [address], 12/05/2022 21:31:04 04/17/20 23 04/01/2023 XR, tibia + fibul a No observ ation record ed. [email or web address] Not Available 04/06 15:19:43 Result Notes None recorded. Problems Name Problem SNOMED Code Status Onset Date Resolution Date Notes Provider Name and Address Organization Details Recorded Time Plantar fascial fibromatos is 35112771 Active 2019 Not Available [facility] 3 21:29:53 Pain of right ankle joint 8829528307642 9106 Active 2021 Not Available [facility] 3 21:29:53 Heartburn 58439163 Active 2019 Not Available [facility] 3 21:29:53 Pleurisy 006667273 Active 2019 Not Available [facility] 3 21:29:53 Anxiety disorder 137333695 Active 2019 Not Available [facility] 3 21:29:53 Fibromyalg ia 219475931 Active 2019 Not Available [facility] 3 21:29:53 Pneumonia 702975936 Active 2019 Not Available [facility] 3 21:29:53 Fracture of distal end of fibula 099665830 Active 2021 Not Available [facility] 3 21:29:53 Fracture of distal end of fibula 752167043 Active 2021 Not Available [facility] 3 21:29:53 Anemia 489711629 Active 2019 Not Available [facility] 3 21:29:53 Skin problem 865978514 Active 2019 Not Available [facility] 3 21:29:53 Closed fracture of distal fibula 744910993 Active 2021 Not Available [facility] 3 21:29:53 Bronchitis 57473427 Active 2019 Not Available [facility] 3 21:29:53 Depressive disorder 27385981 Active 2019 Not Available [facility] 3 21:29:53 Arthritis 6255231 Active 2019 Not Available [facility] 3 21:29:53 Sleep disorder 84571804 Active 2019 Not Available [facility] 3 21:29:53 Dizziness 899561552 Active 2019 Not Available [facility] 3 21:29:53 Diabetic peripheral neuropathy 004181332 Active 2019 Not Available [facility] 3 21:29:54 Foot pain 51594773 Active 2019 Not Available [facility] 3 21:29:54 Foot pain 01940924 Active 2019 Not Available [facility] 3 21:29:54 Diabetes mellitus 04694648 Active 2019 Not Available [facility] 3 21:29:54 Tendinitis of left posterior tibial tendon 6000110875604 00 Active 2022 Yesenia cox, [facility] [facility] 3 11:20:42 Tibialis posterior tendinitis 069338838 Active 2022 Damon Tamayo MD [address] [facility], [facility] [address], [place], [address] , [facility] [place] [facility] 3 11:21:16 Tibialis posterior tendinitis 391265867 Active 2022 Damon Tamayo MD [address] [facility], [facility] [address], [place], [address] , [facility] [place] [facility] 3 11:21:21 Posterior bejarano splints 380872191 Active 2022 Damon Tamayo MD [address] [facility], [facility] [address], [place], [address] , [facility] [place] [facility] 3 11:21:43 Notes:allergies, back/neck p roblems, bowel problems, ear problems, eye problems, head trauma or injury, kidney disease, lung disorder, nerve disease, pulmonary disease, urinary/bladder/kidney problems Problem Notes None recorded. Procedures Surgical History Date Name Laterality Status Provider Name and Address Organization Details Recorded Time Hysterectomy completed Not Available [facility] 12/05/2022 21:29:24 Imaging Results None recorded. Procedure Notes None recorded. Medical Equipment None Reported. Allergies Allergen ID Allergen Name Allergen Category Reaction Reaction Severity Criticality Documentation Date Start Date Code Code System Note Provider Name and Address Organization Details Recorded Time 54837 iodine medicatio n Not available Not available Not available 12/05/2022 5933 RxNorm can cause loss of airwa y by swell ing Not Available [facility] 21:31:02 Medications Name Sig Start Date Stop Date Status Note LastModified by Organization Details LastModified Time cyclobenzap rine 10 mg tablet 11/21 completed Not Available Not Available Not Available atorvastati n 40 mg tablet TAKE 1 TABLET BY MOUTH EVERY DAY AT DINNER active Not Available Not Available No t Available metformin 500 mg tablet 04/30 completed Not Available Not Available Not Available carvedilol 25 mg tablet 10/20 completed Not Available Not Available Not Available venlafaxine ER 75 mg capsule,ext ended release 24 hr TAKE ONE CAPSULE BY MOUTH EVERY DAY 11/21 completed Not Available Not Available Not Available atorvastati n 20 mg tablet TAKE 1 TABLET BY MOUTH EVERY DAY AT DINNER 04/30 completed Not Available Not Available Not Available carvedilol 12.5 mg tablet TAKE 1 TABLET BY MOUTH TWICE DAILY. STOP 25 MG DOSE active Not Available Not Available No t Available albuterol sulfate 2.5 mg/3 mL (0.083 %) solution for nebulizatio n 11/21 completed Not Available Not Available Not Available citalopram 40 mg tablet 10/20 completed Not Available Not Available Not Available loperamide 2 mg capsule TAKE 2 CAPSULES BY MOUTH NOW AND 1 CAPSULE WITH EACH LOOSE STOOL FOR MAX OF 4 CAPSULES EVERY 24 HOURS active Not Available Not Available No t Available azithromyci n 250 mg tablet 10/20 completed Not Available Not Available Not Available hydrocodone 5 mg-acetamin ophen 325 mg tablet 11/21 completed Not Available Not Available Not Available FreeStyle Lancets 28 gauge 11/21 completed Not Available Not Available Not Available lisinopril 20 mg tablet TAKE 1 TABLET BY MOUTH EVERY DAY active Not Available Not Available No t Available prednisone 20 mg tablet 10/20 completed Not Available Not Available Not Available hydroxyzine HCl 50 mg tablet 11/21 completed Not Available Not Available Not Available chlorthalid one 25 mg tablet 10/20 completed Not Available Not Available Not Available amlodipine 5 mg tablet TAKE 1 TABLET BY MOUTH EVERY DAY active Not Available Not Available No t Available tramadol 50 mg tablet TAKE 1 TABLET BY MOUTH EVERY 8 HOURS NEEDED active Not Available Not Available No t Available amitriptyli ne 50 mg tablet 10/20 completed Not Available Not Available Not Available ondansetron 8 mg disintegrat ing tablet DISSOLVE 1 TABLET ON THE TONGUE EVERY 6-8 HOURS NEEDED active Not Available Not Available No t Available glimepiride 1 mg tablet TK 1 T PO QD IN THE MORNING 11/21 completed Not Available Not Available Not Available amitriptyli ne 25 mg tablet 10/20 completed Not Available Not Available Not Available amlodipine 10 mg tablet 10/20 completed Not Available Not Available Not Available hydrocodone 7.5 mg-acetamin ophen 325 mg tablet TAKE 1 TABLET BY MOUTH EVERY 4 HOURS NEEDED 04/30 completed Not Available Not Available Not Available cephalexin 500 mg capsule TAKE 1 CAPSULE BY MOUTH EVERY 8 HOURS FOR 10 DAYS 11/21 completed Not Available Not Available Not Available erythromyci n 5 mg/gram (0.5 %) eye ointment APPLY 1 STRIP TO BOTH UPPER LIDS DAILY FOR 1 WEEK 11/21 completed Not Available Not Available Not Available metformin 1,000 mg tablet TAKE 1 TABLET BY MOUTH TWICE DAILY 04/30 completed Not Available Not Available Not Available lisinopril 10 mg tablet TAKE 1 TABLET BY MOUTH EVERY DAY 11/21 completed Not Available Not Available Not Available gabapentin 300 mg capsule TK 1 C PO QD HS 11/21 completed Not Available Not Available Not Available diclofenac sodium 75 mg tablet,peter yed release Take 1 tablet twice a day by oral route. 2022 active Not Available Not Available Not Avai lable montelukast 10 mg tablet 11/21 completed Not Available Not Available Not Available albuterol sulfate HFA 90 mcg/actuati on aerosol inhaler INHALE 2 TO 4 PUFFS BY MOUTH EVERY 4 TO 6 HOURS NEEDED FOR SHORTNESS OF BREATH active Not Available Not Available No t Available oxybutynin chloride 5 mg tablet TK 1 T PO BID 11/21 completed Not Available Not Available Not Available fluticasone propionate 50 mcg/actuati on nasal spray,suspe nsion SHAKE LIQUID AND USE 1 SPRAY NASALLY EVERY DAY 11/21 completed Not Available Not Available Not Available glipizide 5 mg tablet 10/20 completed Not Available Not Available Not Available naproxen 500 mg tablet TAKE 1 TABLET BY MOUTH TWICE DAILY active Not Available Not Available No t Available amoxicillin 875 mg-alyssau m clavulanate 125 mg tablet TAKE 1 TABLET BY MOUTH TWICE DAILY FOR 14 DAYS 11/21 completed Not Available Not Available Not Available Vitamin D3 25 mcg (1,000 unit) tablet TK 1 T PO QD 11/21 completed Not Available Not Available Not Available Januvia 50 mg tablet Take 1 tablet every day by oral route. 04/30 completed Not Available Not Available Not Available Januvia 100 mg tablet TAKE 1 TABLET BY MOUTH EVERY DAY active Not Available Not Available No t Available FreeStyle Lite Meter kit U UTD 11/21 completed Not Available Not Available Not Available cholecalcif luz (vitamin D3) 50 mcg (2,000 unit) tablet TAKE 1 TABLET BY MOUTH EVERY DAY active Not Available Not Available No t Available Dulera 100 mcg-5 mcg/actuati on HFA aerosol inhaler 11/21 completed Not Available Not Available Not Available OneTouch Verio test strips 11/21 completed Not Available Not Available Not Available Spiriva Respimat 2.5 mcg/actuati on solution for inhalation 10/20 completed Not Available Not Available Not Available Incruse Ellipta 62.5 mcg/actuati on powder for inhalation 11/21 completed Not Available Not Available Not Available OneTouch Verio Flex Meter 11/21 completed Not Available Not Available Not Available Bevespi Aerosphere 9 mcg-4.8 mcg HFA aerosol inhaler 11/21 completed Not Available Not Available Not Available fluticasone 55 mcg-salmete rol 14 mcg/actuati on breath activated powder 11/21 completed Not Available Not Available Not Available Steglatro 5 mg tablet 10/20 completed Not Available Not Available Not Available OneTouch Delica Plus Lancet 30 gauge 11/21 completed Not Available Not Available Not Available BinaxNOW COVID-19 Ag Self Test kit TEST DIRECTED TODAY active Not Available Not Available No t Available Paxlovid 300 mg (150 mg x 2)-100 mg tablets in a dose pack TK 2 NIRMATREL VIR TS AND 1 RITONAVIR T TOGETHER PO BID FOR 5 DAYS BID FOR 5 DAYS active Not Available Not Available No t Available Vitals Date Recorded Body mass index (BMI) Body height Body weight Provider Name and Address Organization Details Last Updated DateTime 11/21/2021 29.6 kg/m2 165.1 cm 88600.44 g Not Available [facility] 12/05/2022 21:29:36 Date Recorded Body mass index (BMI) Body height Body weight Provider Name and Address Organization Details Last Updated DateTime 11/28/2021 29.6 kg/m2 165.1 cm 01229.91 g Not Available [facility] 12/05/2022 21:29:36 Date Recorded Body mass index (BMI) Body height Body weight Provider Name and Address Organization Details Last Updated DateTime 12/19/2021 30.1 kg/m2 165.1 cm 93924.22 g Not Available [facility] 12/05/2022 21:29:36 Date Recorded Body height Provider Name an d Address Organization Details Last Updated DateTime 01/09/2022 165.1 cm Not Available [facility] 21:29:35 Date Recorded Body height Body mass index (BMI) Body weight Provider Name and Address Organization Details Last Updated DateTime 04/30/2023 165.1 cm 29 kg/m2 01924.07 g ERI David [place] [facility] 04/30/2023 11:06:38 Social History Question Answer Notes LastModified by [employer] Details LastModified Time Tobacco Smoking Status Current Every Day Smoker Not Available [facility] 12/05/2022 21:29:16 How Much Tobacco Do You Smoke? 0.5 PPD [id number] Information not available 12/05/2022 How Many Years Have You Smoked Tobacco? 35 [id number] Information not available 12/05/2022 Sex: Unknown Functional Status Question Answer Note LastModified by [employer] Details LastModified Time What is your level of alcohol consumption? None [id number] Information not available 12/05/2022 Mental Status None recorded. Family History Relationship Description Onset Age of this Age Resolved Age Notes LastModified by Organization Details LastModified Time Unspecified Relation Complication of anesthesia [id number] Not available 12/05/2022 21:29:24 Unspecified Relation Heart disease [id number] Not available 12/05/2022 21:29:24 Unspecified Relation Family history of malignant neoplasm [id number] Not available 12/05/2022 21:29:24 Unspecified Relation Hypertensive disorder [id number] Not available 12/05/2022 21:29:24 Unspecified Relation Diabetes mellitus [id number] Not available 12/05/2022 21:29:24 Unspecified Relation Kidney disease [id number] Not available 12/05/2022 21:29:24 Notes:stroke - mother & sist er, cancer - mother & sister Medical History Condition Response USE OF BLOOD THINNERS Y DIABETES, TYPE Y URINARY/BLADDER/KIDNEY PROBLEMS Y LUNG DISEASE/DISORDER Y HYPERTENSION Y COPD Y Gynecological HistoryNo gynecological history recorded. Obstetrics History GPAL:G 0 P 0 0 0 0 Past Encounters Encounter ID Performer Location Encounter Start Date Encounter Closed Date Diagnosis/Indication Diagnosis SNOMED-CT Code Diagnosis ICD10 Code Diagnosis Note [id number] Damon Tamayo MD [facility] [address] [address] 11/21/2021 00:00:00 11/21/2021 09:37:56 [id number] MD ADRRON [facility] [address] [address] 11/28/2021 00:00:00 11/28/2021 09:24:14 [id number] MD DARRON [facility] [address] [address] 12/19/2021 00:00:00 12/19/2021 10:09:04 [id number] Damon Tamayo MD [address] [address] 01/09/2022 00:00:00 01/09/2022 09:33:01 [id number] MD DARRON [facility]illo[facility] [address] 04/30/2023 10:44:29 04/30/2023 11:32:16 Pain of right ankle joint 7163015074 3107640 M25.571 Tendinitis of left posterior tibial tendon 2944928933 17581 M76.822 Tibialis p osterior tendinitis 240306516 M76.821 Posterior bejarano splints 739210711 S86.891A Health Concerns Section Related Observation LastModified by Organization Detai ls LastModified Time None Recorded Concern Status LastModified by Organization Details LastModified Time None Recorded Advance Directives Directive None Recorded Payers Encounter Date Sequence Insurance Name Policy Number Policy John Covered Member ID John Member ID Guarantor Name 04/30/2023 1 [facility] ON OR AFTER 04/06/21 (MEDICAID REPLACEMENT - HMO) Tracy Roth [id number] Tracy Roth Notes Date Note Type Note Provider Name and Address Organization Details Recorded Time 04/30/2023 text/html AnkleReported bypatient.Location: right; medial; deep Quality:aching; throbbing; frequent Severity:moderate Timing:chronic; recurrent Alleviating Factors:ice; rest; elevation; NSAIDs Aggravating Factors:walking; twisting; bending/squatting; weightbearing; exercise Associated Symptoms:no weakness; no numbness; no tingling; no redness; no ecchymosis; no catching/locking; no popping/clicking; no buckling; no grinding; no instability; no radiation down leg; no drainage; no fever; no chills; no weight loss; no change in bowel/bladder habits;swelling;war mth Damon Tamayo MD [address] [place] [address], [address], [place] [facility] 04/30/2023 11:22:05 OBGyn Episode No OBEpisode recorded.
--- OUTSIDE RECORDS SUMMARY | 2025-03-05 08:25 | XMS_ITS | Clinical Summary ---
Author Organization [facility] Address [address] [place] [address] Care Team Providers Care Will Call Clerk Name Role Phone Claude Philip MD Primary Care Provider [phone] Allergies Active Allergy Reactions Criticality Noted Date [...] 05/04/2020 Assessment & Plan (09/21/2024 7:47 PM HOOP MAKER HELPER MACHINE): Chronic, stable Continue Statin therapy Assessment & Plan (06/24/2024 10:51 AM CDT): Chronic problem. Near goal on current Atorvastatin 20mg & Zetia 10mg daily. Last lipid panel: 03/30/24 LDL=77, YT=564. Assessment & Plan (04/05/2024 7:33 PM CDT): Continue current statin therapy Tolerating well Assessment & Plan (09/14/2021 12:31 PM HOOP MAKER HELPER MACHINE): Continue current statin therapy Tolerating well Assessment [...] management Assessment & Plan (09/14/2021 12:31 PM HOOP MAKER HELPER MACHINE): Chronic, stable On Gabapentin for symptomatic management Assessment & Plan (01/31/2021 9:55 PM CDT): Chronic, stable On Gabapentin for symptomatic management Assessment & Plan (05/04/2020 9:37 AM CDT): Chronic, stable On Gabapentin for symptomatic management COPD with acute exacerbation 10/13/2018 Assessment & Plan (10/13/2018 10:48 AM HOOP MAKER HELPER MACHINE): COPD is worsening. Continue current medications. Recommend [...] 03/10/2018 Assessment & Plan (10/13/2018 10:47 AM HOOP MAKER HELPER MACHINE): Obesity is unchanged. Discussed the patient's BMI. [...] greens, fat-free milk, cottage cheese, nuts like mlnadvy-[id number]-[id number], protein bars with 10-15 g of protein [...] greens, fat-free milk, cottage cheese, nuts like qdrfajl-vlsjvev-fpisehf, protein bars with 10-15 g of protein [...] greens, fat-free milk, cottage cheese, nuts like tcbabol-[id number], protein bars with 10-15 g of protein [...] (12/17/2017): Added automatically from request for surgery [id number] Screening mammogram, encounter for 12/09/2017 Hypertension associated with diabetes 11/18/2017 Assessment & Plan (09/21/2024 7:47 PM HOOP MAKER HELPER MACHINE): Chronic well controlled Continue carvedilol 25mg bid, losartan 100mg daily, amlodipine 5mg daily Assessment & Plan (06/24/2024 10:49 AM CDT): Chronic problem. Controlled on current carvedilol 25mg bid, losartan 100mg daily, amlodipine 5mg daily Assessment & Plan (09/14/2021 12:32 PM HOOP MAKER HELPER MACHINE): Chronic, improving control Continue current medication regimen [...] 140/90 Assessment & Plan (12/09/2017 4:22 PM HOOP MAKER HELPER MACHINE): Hypertension is unchanged. UNCONTROLLED Stop smoking. Blood [...] tab. Assessment & Plan (11/18/2017 1:24 PM HOOP MAKER HELPER MACHINE): Hypertension is unchanged. Stop smoking. Blood pressure [...] medication is on the $4 list at [facility] and she had to pay $27 for [...] 11/18/2017 Assessment & Plan (11/18/2017 12:30 PM HOOP MAKER HELPER MACHINE): Hem A1C 7.5 Will start on Metformin [...] given. Pt will need to se a medical educator once she gets insurance. Renal cysts, [...] 11/18/2017 Assessment & Plan (11/18/2017 12:31 PM HOOP MAKER HELPER MACHINE): Recent CT scan in October showed Diverticulosis without diverticulitis. Will continue to monitor. Pt. Has never had a colonoscopy and a referral was put in for her. Sleep disorder 11/18/2017 Assessment & Plan (10/13/2018 10:46 AM HOOP MAKER HELPER MACHINE): Had sleep study Will f/u with Dr. Herrera Assessment & Plan (11/18/2017 12:55 PM HOOP MAKER HELPER MACHINE): Pt has trouble going to sleep, staying [...] SmokefreeTXT or calling a quitline. Using the [employer] for tips and inspiration to help [...] SmokefreeTXT or calling a quitline. Using the [employer] for tips and inspiration to help [...] completely Assessment & Plan (12/09/2017 10:14 AM HOOP MAKER HELPER MACHINE): Quit Smoking https://smokefree.gov/ Nicotine replacement therapy (NRT) [...] SmokefreeTXT or calling a quitline. Using the [employer] for tips and inspiration to help [...] MONEY Assessment & Plan (11/18/2017 12:45 PM HOOP MAKER HELPER MACHINE): Counseling provided. Pt. Wants to stop smoking. She smoked x 30 yrs then quit for 12 then started the last 2 years. She smokes 1/2 ppd now and c/o of chronic bronchitis Tobacco abuse counseling 11/18/2017 Assessment & Plan (10/13/2018 10:45 AM HOOP MAKER HELPER MACHINE): Still smoking average about 7/ day Smoking [...] SmokefreeTXT or calling a quitline. Using the [employer] for tips and inspiration to help [...] ordered Assessment & Plan (11/18/2017 10:31 AM HOOP MAKER HELPER MACHINE): Quit Smoking https://smokefree.gov/ Nicotine replacement therapy (NRT) [...] SmokefreeTXT or calling a quitline. Using the [employer] for tips and inspiration to help [...] 11/18/2017 Assessment & Plan (09/21/2024 7:48 PM HOOP MAKER HELPER MACHINE): Chronic, overall well controlled, Hemoglobin A1c 6.6%, [...] months Assessment & Plan (09/14/2021 12:33 PM HOOP MAKER HELPER MACHINE): Chronic, uncontrolled, worsening A1c today 8.0% Counseled [...] is worsening. Increase Metformin to 1000mg BID Director Hedis referral. Diabetes will be reassessed in 3 [...] patent. Assessment & Plan (12/09/2017 4:28 PM HOOP MAKER HELPER MACHINE): Diabetes is improving with treatment. Dietary recommendations [...] AIC Assessment & Plan (11/18/2017 10:34 AM HOOP MAKER HELPER MACHINE): Diabetes is newly identified. Dietary recommendations for [...] that were on the $4 list at [facility]-Flexeril, Celexa (for anxiety). Will add Neurontin today. Pt to start slowly and just take one at bedtime. Encourage pt. To exercise and stop smoking. She does walk with her dogs. Will refer her to Rheumatology and get baseline RA And SON labs. Assessment & Plan (11/18/2017 12:54 PM HOOP MAKER HELPER MACHINE): Pt states she was diagnosed in 2009. [...] is also on the $4 list at [facility]. She also c/o of numbness and tingling in her feet and legs and hands. In addition, start Citalopram 20 mg po daily. She is to start 1/2 tab for a week then a whole tablet. Cyclobenzaprine 5 mg TID was started for muscle spasms and her fibromyalgia. Acute cystitis without hematuria 11/18/2017 Assessment & Plan (11/18/2017 12:46 PM HOOP MAKER HELPER MACHINE): Complete antibiotic as prescribed Do not hold [...] 11/18/2017 Assessment & Plan (11/18/2017 12:48 PM HOOP MAKER HELPER MACHINE): Pt stated she just had a well women's exam. She stated she told the doctor that she had some vaginal bleeding. We will need to get the office notes and plans. Referrals for Laura and colonoscopy given. Surgical History Surgery Date Site/Laterality Comments HYSTERECTOMY 10/07/2007 - 10/06/2008 partial CYSTECTOMY bladder tuck and bladder closure HAND SURGERY PITUITARY SURGERY THYROID SURGERY CELIAC ARTERY ANGIOPLASTY Right stent replacement Medical History Medical History Date Comments HTN (hypertension) Fibromyalgia 2009 Diabetes mellitus (HCC) COPD (chronic obstructive pulmonary disease) (HC C) Neuropathy Hyperlipidemia Bronchitis Obstructive sleep apnea Family History Medical History Relation Name Comments Heart disease Father Heart disease Mother Lung cancer Mother Brain cancer Sister Lung cancer Sister Relation Name Status Comments Father Mother Sister Social History Tobacco Use Types Packs/Day Years [...] on file Legal Sex Female 9:51 AM HOOP MAKER HELPER MACHINE Gender Identity Female 01/31/2021 7:50 AM CDT Sexual Orientation Straight 01/31/2021 7: 50 AM CDT Obstetrics History Last Filed Vital Signs Vital Sign Reading Time Taken Comments Blood Pressure 120/80 09/21/2024 2:53 PM HOOP MAKER HELPER MACHINE Pulse 70 09/21/2024 2:53 PM HOOP MAKER HELPER MACHINE Temperature 36.3 C (97.3 F) 09/21/2024 10:01 AM HOOP MAKER HELPER MACHINE Respiratory Rate 17 09/21/2024 2:53 PM HOOP MAKER HELPER MACHINE Oxygen Saturation 95% 09/21/2024 10:01 AM HOOP MAKER HELPER MACHINE Inhaled Oxygen Concentration - - Weight 82.1 kg (181 lb) 09/21/2024 2:53 PM HOOP MAKER HELPER MACHINE Height 165.1 cm (5' 5) 09/21/2024 2:53 PM HOOP MAKER HELPER MACHINE Body Mass Index 30.12 09/21/2024 2:53 PM HOOP MAKER HELPER MACHINE Plan of Treatment Health Maintenance Due Date Last Done Comments Hepatitis C Screening 1960 DTaP/Tdap/Td Vaccine (1 - Tdap) 1973 Hepatitis B Screening 1980 Regular Well Visit/Exam 18-64 1980 Pneumococcal vaccine <65 (1 of 2 - PCV) 1981 Zoster Vaccine (1 of 2) 2012 Depression Screening 09/14/2022 09/14/2021, 01/31/2021, 10/13/2018, Additional history exists Breast Cancer Screening-Mammogram 01/13/2023 022, 01/13/2022 Hemoglobin A1C 03/22/2025 09/21/2024, 06/07, 03/30/2024, Additional history exists Albumin Creatinine Ratio, Urine 03/30/2025 03/30/2024, 12/28/2021, 01/31/2021, Additional history exists Lipid Panel 03/30/2025 03/30/2024, 12/06, 01/31/2021, Additional history exists eGFR 03/30/2025 03/30/2024, 12/06, 01/31/2021, Additional history exists Lung Cancer Screening 09/12/2025 09/11/2024 , 09/10/2023, 04/02/2019 Foot Exam 09/21/2025 09/21/2024, 03/08, 09/14/2021, Additional history exists Dilated Eye Exam 03/18/2026 03/18/2024, 10/06/2021 Colon Cancer Screening-Colonoscopy 03/18/2028 03/18/2018 Colon Cancer Screening-CT Colonography Discontinued 03/18/2018 Colon Cancer Screening-DNA Stool Discontinued 06/12/20 18 Colon Cancer Screening-FIT Discontinued 03/18/2018 Colon Cancer Screening-Sigmoidoscopy Discontinued 03/18/2018 Influenza Vaccine Discontinued 12/13/2021, 06/26/2019 Procedures Procedure Name Priority Date/Time Associated Diagnosis Comments POCT HEMOGLOBIN A1C Routine 09/21/2024 2 :56 PM HOOP MAKER HELPER MACHINE Type 2 diabetes mellitus with hyperglycemia, without long-term current use of insulin (HCC) CT LUNG CANCER SCREENING Schedule Routine, Read Routine (OP Routine) 09/11/2024 7:32 AM HOOP MAKER HELPER MACHINE Cigarette nicotine dependence in remission EGFR Routine [...] * POCT hemoglobin A1c (09/21/2024 2:56 PM HOOP MAKER HELPER MACHINE) Hemoglobin A1C, POC 6.6 4.0 - 5.6 % Blood 09/21/2024 2:56 PM HOOP MAKER HELPER MACHINE Katarzyna Swain MD POINT OF CARE TEST ORDERABLES Final Result * CT Lung Cancer Screening (09/11/2024 7:32 AM HOOP MAKER HELPER MACHINE) Anatomical Region Laterality Modality Chest N/A Computed Tomogra phy 09/15/2024 8:44 AM HOOP MAKER HELPER MACHINE Narrative 09/15/2024 9:00 AM HOOP MAKER HELPER MACHINE EXAM DESCRIPTION: CT LUNG CANCER SCREENING REASON [...] lymphadenopathy. Similar-appearing low-density nodular thickening of the lrqr-ognmbsz-ptuj-right adrenal glands most suggestive of nodular hyperplasia. [...] 9:00 AM - Electronically signed by Memo Keita M.D. NS T: Report ID: [id number] Reading Location: [place] [address] us Sue Roland MD IMG CT PROCEDURES [...] CDT 03/30/2024 8:39 PM CDT us Katarzyna Swain MD LAB BLOOD ORDERABLE S Final Result [facility] [id number] Department [place] [address] * Albumin Creatinine Ratio, Urine (03/30/2024 1:49 PM CDT) Albumin Ur 12.5 mg/L Comment: Interpretive Data No reference range established. Current interpretive data was last revised 2019. Creatinine Ur 66.9 mg/dL [facility] Comment: Interpretive Data No reference range established. Current interpretive data was last revised 2019. Albumin Creatinine Ratio, Ur 19 1 - 29 mg/g [facility] Urine 03/30/2024 1:49 PM CDT 03/30/2024 8:18 PM CDT Katarzyna Swain MD LAB URINE ORDERABLE S Final Result [facility] [id number] Department [place] [address] * (ABNORMAL) Lipid panel (03/30/2024 1:49 PM [...] on 2018. HDL 34(L) >=40 mg/dL [facility] REYES Comment: Interpretive Data Ages [...] 1:49 PM CDT 03/30/2024 8:18 PM CDT Katarzyna Swain MD LAB BLOOD [place] [address] [address] Department [place] [address] * HM DIABETES EYE EXAM (03/18/2024 8:16 AM CDT) us Historical Provider HEALTH MAINTENANCE Edited Result - Final * COLONOSCOPY (03/18/2018 10:40 AM CDT) Anatomical Region Laterality Modality Other Narrative Procedure Note Basim Forde MD - 03/18/2018 10:[address] [facility] Patient Name: Tracy Roth Procedure Date: 03/18/2018 10:40 AM Date of : 1960 Admit Type: Outpatient Age: 58 Gender: Female Attending MD: Basim Llanos M.D. Room: [facility] ENDOSCOPY ROOM 2 Note Status: Finalized Procedure: [...] scope was passed under direct vision.The Colonoscope [id number] was introducedthrough the anus and advanced to [...] Residual hemorrhoidal skin tags CPT copyright 2017 [employer]. All rights reserved. The codes documented in this report are preliminary and upon crossbow maker reviewmay be revised to meet current compliance requirements. Recognized by the [employer] for promoting quality in endoscopy Basim Hankins MD ENDOSCOPY PROCEDUR ES Final Result from Last 3 Months or Most Recently Relevant to Health Maintenance Insurance [facility] Advance Directives For more information, please contact: [phone] * Full Code (Latest Code Status on File) Date Activated Date Inactivated Comments 03/18/2018 9:11 AM 03/18/2018 1:51 PM Care Teams Will Call Clerk Relationship Specialty Start Date End Date Claude Philip MD PCP - General Emergency Medicine 07/02/23
--- OUTSIDE RECORDS SUMMARY | 2025-03-05 08:26 | XMS_ITS | CONTINUITY OF CARE DOCUMENT ---
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 Name Role Phone Regis BURNS, Isreal Unavailable PING JENNINGS MD Unavailable [phone] PING JENNINGS MD Unavailable [phone] PROBLEMS Condition Status Date Provider Notes Aortic atherosclerosis active Isreal Stacy MD Granulomatous lung disease active Isreal ravi MD Diastolic dysfunction active Isreal Stacy MD Renal cyst active Isreal Stacy MD Diabetes mellitus, type 2 active Isreal patterson MD NEG EGFR Neuropathy active sIreal Stacy MD Fibromyalgia active Isreal Stacy MD Hypertension;neg duplex active Isreal jensen MD Hyperlipidemia;with low lpa active Robyn Dominguez MD PVD; active Isreal Stacy MD Chest pain, atypical active Isreal Woodruff COULDNOT AFFORD HAROON SCORE COPD active Isreal Stacy MD has lung md Family Hx heart disease active Isreal jensen MD BOTH PARENT CAD Tobacco use, quit active Isreal Stacy MD Microalbuminuria active Isreal Stacy MD ne g egfr o n kerneid and [place] Erythrocytosis completed - Isreal Stacy MD Screening active Isreal Stacy MD Bradycardia;due to rx;nml tsh active Isreal Stacy MD ADRENAL ADENOMA active Isreal Stacy MD Overweight active Isreal Stacy MD SLEEP APNEA;ON CPAP active Isreal Stacy MD ENCOUNTERS Date Type Provider Location Encounter Diag nosis - In-person encounter Office Visit Isreal Stacy MD [facility] [facility] Diabetes mellitus, type 2Chest pain, atypicalCOPDFamily Hx heart diseaseTobacco use, quitMicroalbuminuriaErythroc ytosisScreeningBradycardia;d ue to rx;nml tshADRENAL ADENOMAOverweightSLEEP APNEA;ON CPAP - In-person encounter Office Visit sIreal Stacy MD [facility] - In-person encounter Office Visit Isreal Stacy MD [facility] - In-person encounter Office Visit Robyn Dominguez MD [facility] Hyperlipidemia;with low lpaMicroalbuminuria - In-person encounter Office Visit Isreal Stacy MD [facility] - In-person encounter Office Visit Isreal Stacy MD [facility] Diabetes mellitus, type 2NeuropathyFibromyalgiaHyper tension;neg duplexHyperlipidemia;with low lpaPVD;Chest pain, atypicalCOPDFamily Hx heart diseaseTobacco use, quit VITAL SIGNS Date Observation Value Provider Body Mass Index (Ratio) 28.79 kg/m2 Marcell Stacy MD blood pressure, cuff size regular Calvin Browning blood pressure, diastolic 68 mm[Hg] Calvin Browning blood pressure, systolic 116 mm[Hg] Efren Browning oxygen saturation, oximetry 94 % Christine Browning respiratory rate E&M 12 /min Christine Browning pulse rate 58 /min Christine [place] weight E&M 178.4 [lb_av] Christine [place] height E&M 66 [in_i] Christine [place] Body Mass Index (Ratio) 27.27 kg/m2 Marcell Stacy MD blood pressure, cuff size regular [facility] blood pressure, diastolic 90 mm[Hg] [facility] blood pressure, systolic 149 mm[Hg] [facility] 63 /min [facility] oxygen saturation, oximetry 98 % [facility] respiratory rate E&M 18 /min [facility] weight E&M 169 [lb_av] [facility] height E&M 66 [in_i] [facility] Body Mass Index (Ratio) 27.44 kg/m2 Marcell Stacy MD blood pressure, cuff size regular [facility] blood pressure, diastolic 96 mm[Hg] [facility] blood pressure, systolic 165 mm[Hg] [facility] pulse rate 61 /min [facility] oxygen saturation, oximetry 95 % [facility] respiratory rate E&M 12 /min Jerrod weight E&M 170 [lb_av] Jerrod [facility] height E&M 66 [in_i] Jerrod [facility] Body Mass Index (Ratio) 27.27 kg/m2 Estella Dominguez MD blood pressure, diastolic 95 mm[Hg] [facility] nkLog blood pressure, systolic 167 mm[Hg] Bre kLog pulse rate 68 /min [facility] blood pressure, cuff size regular [facility] blood pressure, diastolic 95 mm[Hg] [facility] blood pressure, systolic 167 mm[Hg] Nicolas page [place] oxygen saturation, oximetry 97 % [facility] respiratory rate E&M 16 /min Nelly Swenson shaista weight E&M 169 [lb_av] [facility] height E&M 66 [in_i] [facility] Body Mass Index (Ratio) 27.11 kg/m2 Marcell Stacy MD blood pressure, cuff size regular [facility], diastolic 68 mm[Hg] Am chinmay [place]im[place] [employer] blood pressure, systolic 152 mm[Hg] [place] Vent[place] [facility] pulse rate 99 /min [facility] y respiratory rate E&M 12 /min [facility] oxygen saturation, oximetry 96 % [facility] weight E&M 168 [lb_av] Jerrod height E&M 66 [in_i] Jerrod y Body Mass Index (Ratio) 27.92 kg/m2 Marcell Stacy MD blood pressure, diastolic 101 mm[Hg] [facility]kLogic blood pressure, systolic 185 mm[Hg] Bre kLog blood pressure, cuff size regular [facility] blood pressure, diastolic 101 mm[Hg] [facility], systolic 185 mm[Hg] Jar ret pulse rate 69 /min Jerrod y height E&M 66 [in_i] Jerrod y oxygen saturation, oximetry 97 % [facility] respiratory rate E&M 12 /min Jerrod weight E&M 173 [lb_av] [facility] y ALLERGIES Allergy Name Onset Date Reaction Criticality Status IODINE Low Criticality active HISTORY OF MEDICATION USE Medication Status Instructions Dates Provider Indications Com ments carvedilol 25 mg tablet active TAKE 1 TABLET BY MOUTH TWICE DAILY Trudy Dietz losartan 100 mg tablet active TAKE 1 TABLET BY MOUTH EVERY DAY Trudy Mirela Xarelto 2.5 mg tablet active TAKE 1 TABLET BY MOUTH TWICE DAILY [facility] sertraline 25 mg tablet active Nelly Browning Zetia 10 mg tablet active Take 1 tablet by mouth once a day [facility] Kerendia 20 mg tablet active 1 tablet by mouth once a day [facility] losartan 100 mg tablet completed Take 1 tablet by mouth once a day - Trudy Mirela Plavix 75 mg tablet completed Take 1 tablet by mouth once a day - [facility] bupropion HCl 150 mg tablet sustained-release 12 hr active [facility] bupropion HCl 150 mg tablet sustained-release 12 hr completed - [facility] aspirin 81 mg tablet,delayed release (DR/EC) active TAKE 1 TABLET BY MOUTH DAILY Ira Indiomiglia [facility] lisinopril 40 mg tablet completed - [facility] montelukast 10 mg tablet active [facility] Atacand 32 mg tablet completed 1 tablet by mouth once a day - [facility] Jardiance 10 mg tablet active Take 1 tablet by mouth once a day Diane Jackson NP glipizide 5 mg tablet extended release 24hr completed - Isreal Stacy MD cholecalciferol (vitamin D3) 50 mcg (2,000 unit) tablet active TAKE 1 TABLET BY MOUTH EVERY DAY Jerrod Januvia 100 mg tablet active naproxen 500 mg tablet completed - Diane Jackson NP lisinopril 40 mg tablet completed - Diane Jackson NP albuterol sulfate 90 mcg/actuation HFA aerosol inhaler active Jerrod amlodipine 10 mg tablet active Ira Ventimiglia [facility] carvedilol 25 mg tablet completed Take 1 tablet by mouth twice a day - Trudy Mirela atorvastatin 40 mg tablet active SOCIAL HISTORY Date Observation Value Provider quit smoking, stage quit Isreal zuniga MD personal history of marijuana use yes Isreal Stacy MD drug use no Isreal Woodruff alcohol use no Isreal Woodruff smoking/tobacco cess ation, patient education and counseling yes Isreal Stacy MD smoking history, tot al pack/day 1/2 Isreal Stacy MD cigarette use yes Isreal Stacy MD smoking status Current every day smoker H fausto Stacy MD personal history of marijuana use yes [facility] drug use no [facility] alcohol use no [facility] smoking/tobacco cess ation, patient education and counseling yes [facility] smoking history, tot al pack/day 1/2 [facility] cigarette use yes [facility] smoking status Current every day smoker F prema Nam personal history of marijuana use yes Ira Ventimiglia [facility] drug use, illicit, d rug of choice marijuana Ira Ventimiglia [facility] drug use yes Ira Ventimig andre [facility] alcohol use no Ira Ventimig andre [facility] smoking/tobacco cess ation, patient education and counseling yes Ira Ventimiglia [facility] smoking history, tot al pack/day 1/2 Ira Ventimiglia [facility] cigarette use yes Ira Ventimi glia [facility] smoking status Current every day smoker A ammon Cummings [facility] social history E&M S moking History: Vj ibanez currently smokes every day. Vj ibanez has been counseled to quit. Ankush Lawrence smoking/tobacco cess ation, patient education and counseling yes Ankush Lawrence smoking status Current every day smoker Diomedes Browning drug use, illicit, d rug of choice marijuana Ira Ventimiglia [facility] drug use yes Ira Ventimig andre [facility] alcohol use no Ira Ventimig andre [facility] smoking status Current every day smoker A ammon Ramiresglmichael [facility] social history reviewed E&M revi ewed - no changes required Diane Carmonamal CARNES social history E&M S moking History: Vj ibanez currently smokes every day. 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 alcohol use no Diane Bonareri [employer] TECHNICIAN smoking history, tot al pack/day 1/2 Jerrod cigarette use yes Jerrod Morgan ay smoking status Current every day smoker J INSURANCE PROVIDERS Payer name Policy type / Coverage type [place] [employer] party ID [employer] (2) Medicaid [id number] ADVANCE DIRECTIVES Name Date DISCUSSED - NO DECISION MADE TREATMENT PLAN Date Name Performer [id number],C,ef 67, pro 20 5 Isreal Stacy MD [id number],C,51 Isreal patterson MD [id number],C,37 Isreal patterson MD [id number],S, Ankush Romero y [id number],C,T he Patient was reencouraged to stop smoking. S he smokes 4 cigarettes per day Ankush Lawrence [id number],C,c ontinue statin medication therapy H er updated medication list for this problem includes: Atorvastatin 40 Mg Tablet (Atorvastatin) Ankush Lawrence [id number],C, B P today: 167/95 P rior BP: 152/68 (07/30/2023) Her updated medication list for this problem includes: Carvedilol 25 Mg Tablet (Carvedilol) ..... Take 1 tablet by mouth twice a day Aspirin 81 Mg Tablet,delayed Release (dr/ec) (Aspirin) ..... Take 1 tablet by mouth daily Lisinopril 40 Mg Tablet (Lisinopril) Amlodipine 5 Mg Tablet (Amlodipine) Ankush Lawrence [id number],C,P ataugustine has RLE claudication. She has pain with minimal ambulation made better with rest A BI showed severe arterial disease of RLE W ill refer to Dr. Dominguez for AIF evaluation August 07, 2023 S chedule for diagnostic AIF with crossover from left to right Ankush Faribault [id number],C,r esolved. negative nuclear stress test [facility] [id number],C,cessation enc ouraged. [facility] [id number],C,o n statin. W ill update lipids H er updated medication list for this problem includes: Atorvastatin 40 Mg Tablet (Atorvastatin) [facility] [id number],C,B P not at goal W ill increase coreg W ill f/u in one month or sooner if needed. T he following medications were removed from the medication list: Atacand 32 Mg Tablet (Candesartan) ..... 1 tablet by mouth once a day Her updated medication list for this problem includes: Carvedilol 25 Mg Tablet (Carvedilol) ..... Take 1 tablet by mouth twice a day Aspirin 81 Mg Tablet,delayed Release (dr/ec) (Aspirin) ..... Take 1 tablet by mouth daily Lisinopril 40 Mg Tablet (Lisinopril) Amlodipine 5 Mg Tablet (Amlodipine) Ira Cummings [facility] [id number],C,E F of 65% on recent echo n eeds better BP control W ill increase BB dose Ira Cummings [facility] [id number],C,P shamar has RLE claudication. She has pain with minimal ambulation made better with rest A BI showed severe arterial disease of RLE W ill refer to Dr. 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 She states that she is only able to do house work and every other activity makes her very short of breath. W ill check PFTs. W ill check echo/Stress test Diane Cosmedenis CARNES [id number],C, M other CAD with stents then required a CABG. F ather/Uncles from an [place]. G randparents had an [place]. Diane Cosmedenis CARNES [id number],C, W ill check echo and stress test for further assessment. Patient has extensive family history of cardiac disease Diane Cosmedenis CARNES [id number],C, P ain worse with walking W ill check NARCISO and arterial sensilase. Diane Carmonamal CARNES [id number],C, W ill obtain lab results from PCP. H er updated medication list for this problem includes: Atorvastatin 40 Mg Tablet (Atorvastatin) Diane Cosmedenis CARNES [id number],C, E levated at home andin office today. W ill change Lisinopril to Candesartan. A dvised patient to monitor BP at home and keep record. The following medications were removed from the medication list: Lisinopril 40 Mg Tablet (Lisinopril) Her updated medication list for this problem includes: Atacand 32 Mg Tablet (Candesartan) ..... 1 tablet by mouth once a day Amlodipine 5 Mg Tablet (Amlodipine) Carvedilol 12.5 Mg Tablet (Carvedilol) BP today: 185/101 Diane Jackson NP [id number],C, M anaged per PCP. W ill try Jardiance. T he following medications were removed from the medication list: Lisinopril 40 Mg Tablet (Lisinopril) Her updated medication list for this problem includes: Atacand 32 Mg Tablet (Candesartan) ..... 1 tablet by mouth once a day Jardiance 10 Mg Tablet (Empagliflozin) ..... Take 1 tablet by mouth once a day Glipizide 5 Mg Tablet Extended Release 24hr (Glipizide) Januvia 100 Mg Tablet (Sitagliptin phosphate) Diane Jackson NP [id number],S,T he patient is between 55-77 years old and has smoked at least 30 pack years. The patient is either a current smoker or has quit within the past 15 years. T he patient is recommended to have low dose CT scan for lung cancer screening. Has been counseled regarding the importance of tobacco cessation and abstinence. Shared decision making during this office visit included discussion of the benefits and harms of screening, possible future recommendations of follow-up diagnostic testing, and total amount of radiation exposure. The patient was recommended to have annual low dose CT scan for lung cancer screening and is willing to undergo diagnosis and treatment. Diane Jackson NP Cardiology:6.x Isreal Stacy MD Cardiology:SEEING LUNG MD Isreal Stacy MD Cardiology: e f 65, pro 205 Isreal Stacy MD Cardiology: H er updated medication list for this problem includes: Amlodipine 10 Mg Tablet (Amlodipine) Losartan 100 Mg Tablet (Losartan) ..... Take 1 tablet by mouth once a day Carvedilol 25 Mg Tablet (Carvedilol) ..... Take 1 tablet by mouth twice a day Aspirin 81 Mg Tablet,delayed Release (dr/ec) (Aspirin) ..... Take 1 tablet by mouth daily Isreal Stacy MD Cardiology: r esolved. negative nuclear stress test Isreal Stacy MD Cardiology Isreal Stacy MD Cardiology Isreal Stacy MD Cardiology:[facility], fu ct neg s evere with continued pain in the bilateral LE R>L. No open sores or color change S he has been referred to vascular surgery but yet to see We will send referral again and patient has been given name, address and phone number W ill change to xarelto from plavix as long as affordable W ill have her return in 2 mos or sooner if needed. Isreal Stacy MD Cardiology Isreal Stacy MD Cardiology:NEG PFT H er updated medication list for this problem includes: Montelukast 10 Mg Tablet (Montelukast) Albuterol Sulfate 90 Mcg/actuation Hfa Aerosol Inhaler (Albuterol sulfate) Pulmonary Functions Reviewed: F EV1: 2.22 (07/25/2023) O2 sat: 94 (03/04/2024) Isreal Stacy MD Cardiology: 3 5 Isreal Stacy MD Cardiology:cessation encouraged. Ira Cummings [facility] Cardiology: H er updated medication list for this problem includes: Losartan 100 Mg Tablet (Losartan) ..... Take 1 tablet by mouth once a day Aspirin 81 Mg Tablet,delayed Release (dr/ec) (Aspirin) ..... Take 1 tablet by mouth daily Jardiance 10 Mg Tablet (Empagliflozin) ..... Take 1 tablet by mouth once a day Glipizide 5 Mg Tablet Extended Release 24hr (Glipizide) Januvia 100 Mg Tablet (Sitagliptin phosphate) Iar Cummings [facility] Cardiology:LDL now 7 8 on recent labs T rig remain elevated at 265 w ill continue medication regimen d iet and exercise encouraged. H er updated medication list for this problem includes: Zetia 10 Mg Tablet (Ezetimibe) ..... Take 1 tablet by mouth once a day Atorvastatin 40 Mg Tablet (Atorvastatin) [facility] Cardiology:not at go al 149/90 W ill increase her norvasc to 10 mg a day H er updated medication list for this problem includes: Losartan 100 Mg Tablet (Losartan) ..... Take 1 tablet by mouth once a day Carvedilol 25 Mg Tablet (Carvedilol) ..... Take 1 tablet by mouth twice a day Aspirin 81 Mg Tablet,delayed Release (dr/ec) (Aspirin) ..... Take 1 tablet by mouth daily Amlodipine 5 Mg Tablet (Amlodipine) [facility] Cardiology:severe wi th continued pain in the bilateral LE R>L. No open sores or color change S he has been referred to vascular surgery but yet to see W e will send referral again and patient has been given name, address and phone number W ill change to xarelto from plavix as long as affordable W ill have her return in 2 mos or sooner if needed. [facility] Cardiology: H er updated medication list for this problem includes: Montelukast 10 Mg Tablet (Montelukast) Albuterol Sulfate 90 Mcg/actuation Hfa Aerosol Inhaler (Albuterol sulfate) [facility] Cardiology:cessation encouraged s he is down to 3 cigarettes a day [facility] Cardiology:with lopez l insufficiency noted on labs w ill initiate alysa per Dr. Stacy W ill do f/u BMP in one mos T he following medications were removed from the medication list: Lisinopril 40 Mg Tablet (Lisinopril) Her updated medication list for this problem includes: Losartan 100 Mg Tablet (Losartan) ..... Take 1 tablet by mouth once a day Aspirin 81 Mg Tablet,delayed Release (dr/ec) (Aspirin) ..... Take 1 tablet by mouth daily Jardiance 10 Mg Tablet (Empagliflozin) ..... Take 1 tablet by mouth once a day Glipizide 5 Mg Tablet Extended Release 24hr (Glipizide) Januvia 100 Mg Tablet (Sitagliptin phosphate) [facility] Cardiology:LDL not a t goal W ill add zetia w ill do f/u lipid panel in a month H er updated medication list for this problem includes: Zetia 10 Mg Tablet (Ezetimibe) ..... Take 1 tablet by mouth once a day Atorvastatin 40 Mg Tablet (Atorvastatin) [facility] Cardiology:BP remain s uncontrolled W ill stop lisinopril B egin losartan W ill follow BP T he following medications were removed from the medication list: Lisinopril 40 Mg Tablet (Lisinopril) Her updated medication list for this problem includes: Losartan 100 Mg Tablet (Losartan) ..... Take 1 tablet by mouth once a day Carvedilol 25 Mg Tablet (Carvedilol) ..... Take 1 tablet by mouth twice a day Aspirin 81 Mg Tablet,delayed Release (dr/ec) (Aspirin) ..... Take 1 tablet by mouth daily Amlodipine 5 Mg Tablet (Amlodipine) [facility] Cardiology:with sign ificant disease of RLE. Will refer back to Dr. Dominguez for management and possilbe intervention W ill add plavix. continue asa and statin s moking cessation encouraged [facility] Cardiology:ef 65, pro 205 Isreal Stacy MD Cardiology:49 Isreal Stacy MD Cardiology:35 Isreal Stacy MD Cardiology Ankush Lawrence Cardiology:The Patie nt was reencouraged to stop smoking. S he smokes 4 cigarettes per day Ankush Lawrence Cardiology:continue statin medication therapy H er updated medication list for this problem includes: Atorvastatin 40 Mg Tablet (Atorvastatin) Ankush Lawrence Cardiology: B P today: 167/95 P rior BP: 152/68 (07/30/2023) Her updated medication list for this problem includes: Carvedilol 25 Mg Tablet (Carvedilol) ..... Take 1 tablet by mouth twice a day Aspirin 81 Mg Tablet,delayed Release (dr/ec) (Aspirin) ..... Take 1 tablet by mouth daily Lisinopril 40 Mg Tablet (Lisinopril) Amlodipine 5 Mg Tablet (Amlodipine) Ankush Faribault Cardiology:Patient h as RLE claudication. She has pain with minimal ambulation made better with rest A BI showed severe arterial disease of RLE W ill refer to Dr. Dominguez for AIF evaluation N ovember 2022 S chedule for diagnostic AIF with crossover from left to right [facility] Cardiology:resolved. negative nu clear stress test [facility] Cardiology:cessation encouraged. [facility] Cardiology:on statin . W ill update lipids H er updated medication list for this problem includes: Atorvastatin 40 Mg Tablet (Atorvastatin) [facility] Cardiology:BP not at goal W ill increase coreg W ill f/u in one month or sooner if needed. T he following medications were removed from the medication list: Atacand 32 Mg Tablet (Candesartan) ..... 1 tablet by mouth once a day Her updated medication list for this problem includes: Carvedilol 25 Mg Tablet (Carvedilol) ..... Take 1 tablet by mouth twice a day Aspirin 81 Mg Tablet,delayed Release (dr/ec) (Aspirin) ..... Take 1 tablet by mouth daily Lisinopril 40 Mg Tablet (Lisinopril) Amlodipine 5 Mg Tablet (Amlodipine) [facility] Cardiology:EF of 65% on recent echo n eeds better BP control W ill increase BB dose [facility] Cardiology:Patient h as RLE claudication. She has pain with minimal ambulation made better with rest A BI showed severe arterial disease of RLE W ill refer to Dr. Dominguez for AIF evaluation Shafer Zoila [facility] :neg nuc Isreal Stacy MD will need aif with s s in gc:sever by megan and narciso Stacy MD :severe by esdras Stacy MD Cardiology-seen with [employer] TECHNICIAN: P ataugustine has COPD/Emphysema. She states that she is only able to do house work and every other activity makes her very short of breath. W ill check PFTs. W ill check echo/Stress test Diane Carmonamal CARNES Cardiology-seen with [employer] PL[employer] TECHNICIAN: M other CAD with stents then required a CABG. F ather/Uncles from an [place]. G randparents had an [place]. Diane Jackson NP Cardiology-seen with [employer] TECHNICIAN: W ill check echo and stress test for further assessment. Patient has extensive family history of cardiac disease Marcuskamini Jackson NP Cardiology-seen with [employer] TECHNICIAN: P ain worse with walking W ill check NARCISO and arterial sensilase. Diane Jackson NP Cardiology-seen with [employer] TECHNICIAN: W ill obtain lab results from PCP. H er updated medication list for this problem includes: Atorvastatin 40 Mg Tablet (Atorvastatin) Diane Jackson NP Cardiology-seen with [employer] TECHNICIAN: E levated at home andin office today. W ill change Lisinopril to Candesartan. A dvised patient to monitor BP at home and keep record. The following medications were removed from the medication list: Lisinopril 40 Mg Tablet (Lisinopril) Her updated medication list for this problem includes: Atacand 32 Mg Tablet (Candesartan) ..... 1 tablet by mouth once a day Amlodipine 5 Mg Tablet (Amlodipine) Carvedilol 12.5 Mg Tablet (Carvedilol) BP today: 185/101 Diane Jackson NP Cardiology-seen with [employer] TECHNICIAN: M anaged per PCP. W ill try Jardiance. T he following medications were removed from the medication list: Lisinopril 40 Mg Tablet (Lisinopril) Her updated medication list for this problem includes: Atacand 32 Mg Tablet (Candesartan) ..... 1 tablet by mouth once a day Jardiance 10 Mg Tablet (Empagliflozin) ..... Take 1 tablet by mouth once a day Glipizide 5 Mg Tablet Extended Release 24hr (Glipizide) Januvia 100 Mg Tablet (Sitagliptin phosphate) Marcuskamini Jackson NP Cardiology-seen with [employer] TECHNICIAN:The patient is between 55-77 years old and has smoked at least 30 pack years. The patient is either a current smoker or has quit within the past 15 years. T he patient is recommended to have low dose CT scan for lung cancer screening. Has been counseled regarding the importance of tobacco cessation and abstinence. Shared decision making during this office visit included discussion of the benefits and harms of screening, possible future recommendations of follow-up diagnostic testing, and total amount of radiation exposure. The patient was recommended to have annual low dose CT scan for lung cancer screening and is willing to undergo diagnosis and treatment. 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 Date Name PROBNP, N TERMINAL RPR (MONITOR) W/REFL TITER Holter Monitor 24 Hr CRP, high sensitivit y TSH, free T4, total T3 VITAMIN B12 Vitamin D, 25-Hydrox y FOLATE, SERUM IRON AND TOTAL IRON BINDING CAPACITY FERRITIN BASIC METABOLIC PANE L W/EGFR LIPID PANEL PROTHROMBIN TIME WIT H INR CBC (INCLUDES DIFF/P LT) BASIC METABOLIC PANE L W/EGFR PROBNP, N TERMINAL Microalb/Creatinine Urine, Random LIPID PANEL Lipoprotein (a) CT, Coronary Calcium Score Low Dose Lung CT Arterial Duplex Bi-L ower EX Arterial - SENSILASE DLCO - 77012 FRC - 82980 FVC - 04573 Stress Regadenoson Renal Artery Duplex Complete Echo HISTORY OF PROCEDURES Procedure Date Procedure Name Provider Procedure Notes S tatus FVC / MVV - 42928 Isreal Stacy MD c ompleted FRC - 37772 Isreal Stacy MD complet ed SpO2 w/o 6min walk/titration Isreal Stacy MD completed DLCO - 14491 Isreal Stacy MD comple blessing Counseling LDCT Isreal Stacy MD com pleted EKG Isreal Stacy MD complete d
--- OUTSIDE RECORDS SUMMARY | 2025-03-05 08:26 | XMS_ITS | Clinical Summary ---
Author Organization [facility] Address [address] [place] [address] Phone Care Team Providers Care Meatman Name Role Phone Claude Philip MD Primary Care Provider [phone] Allergies Active Allergy Reactions Criticality Noted Date Comments Iodine 10/02/2023 Shellfish-Derived Products 3 Medications Empagliflozin (Jardiance) 10 MG tablet Take 10 mg by mouth 1 (one) time each day Active amLODIPine (NORVASC) 5 MG tablet Take 5 mg by mouth 1 (one) time each day Active carvedilol (COREG) 25 MG tablet Take 25 mg by mouth in the morning and 25 mg in the evening. Take with meals. Active montelukast (SINGULAIR) 10 MG tablet Take 10 mg by mouth in the morning and 10 mg in the evening. Active ezetimibe (ZETIA) 10 MG tablet Take 10 mg by mouth 1 (one) time each day Active losartan (COZAAR) 100 MG tablet Take 100 mg by mouth 1 (one) time each day Active Dulaglutide (TRULICITY SC) Inject under the skin per week Active Rivaroxaban (Xarelto) 2.5 MG tablet Take 1 tablet by mouth in the morning and 1 tablet in the evening. 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 Obstructive sleep apnea syndrome 10/15/2023 Hyperlipidemia 10/15/2023 Type 2 diabetes mellitus 10/02/2023 Essential hypertension 10/02/2023 Resolved Problems Problem Noted Date Diagnosed Date Resolved Date Chronic obstructive pulmonary disease 10/15/2023 05/18/2024 Encounters Date Type Department Care Team Description 12/31/2024 Refill [facility] [address] [facility] [address] [place] [address] Divine Harris MA from Last 3 Months Family History Medical History Relation Comments Heart attack Father Cancer Mother Cancer Sister Relation Status Comments Father Mother Sister Social History Tobacco Use Types Packs/Day Years Used Date Smoking Tobacco: Every Day Cigarettes Smokeless Tobacco: Never Alcohol Use Standard Drinks/Week Comments Never 0 (1 standard drink = 0.6 oz pur e alcohol) Comments Unknown Sex and Gender Information Value Date Recorded Sex Assigned at Not on file Legal Sex Female 9:50 AM [facility] Gender Identity Not on file Sexual Orientation Not on file Last Filed Vital Signs Vital Sign Reading Time Taken Comments Blood Pressure 161/104 05/19/2024 2:24 PM CDT Pulse 67 05/19/2024 2:24 PM CDT Temperature - - Respiratory Rate - - Oxygen Saturation - - Inhaled Oxygen Concentration - - Weight 82.6 kg (182 lb) 05/19/2024 2:24 PM CDT Height 165.1 cm (5' 5) 05/19/2024 2:24 PM CDT Body Mass Index 30.29 05/19/2024 2:24 PM CDT Plan of Treatment Upcoming Encounters Date Type Department Care Team (Late st Contact Info) Description 05/18/2025 11:20 AM CDT Office Visit [facility] [address] [facility] [address] [place] [address] George Valencia MD [facility] [address] [place] [address] Health Maintenance Due Date Last Done Comments Diabetic Foot Exam 1972 Ophthalmology Exam 1972 Pneumococcal PPSV23 Highest Risk Adult (1 of 3 - PCV13) 1981 Influenza Vaccine (Season Ended) 2025 12/14/19 22 Insurance PM INTERFAC[employer] INSURANCE Care Teams Meatman Relationship Specialty Start Date End Date Claude Philip MD PCP - General 09/02/23
[2025-03-05 09:11] LABS: Hematocrit 49.1 % (37.0-47.0); Hemoglobin 15.2 g/dL (12.0-15.0); Mean Corpuscular Hemoglobin 27.4 pg (26-34); Mean Corpuscular Volume 88.6 fl (80-100); Mean Platelet Volume 10.5 fl (7.4-10.4); Platelet Count Result 217 k/mm3 (150-375); Red Blood Count 5.54 M/mm3 (4.2-5.4); Red Cell Distribution Width 14.9 % (11.5-14.5); White Blood Count 6.4 K/mm3 (4.5-10.0)
[2025-03-05 09:27] LABS: Alanine Aminotransferase 23 U/L (6-35); Albumin Level 4.4 g/dL (3.5-5.1); Alkaline Phosphatase 75 U/L (38-126); Anion Gap 8 mmol/L (4-12); Aspartate Amino Transferase 26 U/L (14-36); Bilirubin,Total 0.6 mg/dL (0.2-1.3); Blood Urea Nitrogen 25 mg/dL (7-17); Calcium 9.7 mg/dL (8.4-10.2); Carbon Dioxide 25 mmol/L (22-30); Chloride 105 mmol/L (98-107); Cholesterol 203 mg/dL (0-200); Estimated Glomerular Filt Rate > 60; Glucose 134 mg/dL (65-110); HDL Direct 35 mg/dL; Potassium 4.4 mmol/L (3.4-5.0); Sodium 138 mmol/L (137-145); Triglycerides 185 mg/dL (<150)
[2025-03-05 09:38] LABS: Creatinine Urine 55.8 mg/dL
[2025-03-05 09:38] LABS: LDL Cholesterol Direct 104 mg/dL
[2025-03-05 09:43] LABS: MALB Creatinine Ratio 11.1 mg/g (0-30); Microalbumin Urine Random 6.2 mg/L (0-16.7)
[2025-03-05 09:46] LABS: Free T4 Free Thyroxine 1.06 ng/dL (0.78-2.19)
[2025-03-05 09:58] LABS: Thyroid Stimulating Hormone 0.622 uIU/mL (0.465-4.680)
[2025-03-05 10:11] LABS: Hemoglobin A1C 6.7 % (<5.7)
== END 2025-03-05 08:20 | disposition home or self-care (01) ==
LOC: ANHLAB 08:20
PROVIDERS: PCP Emergency Medicine; Visit Provider Emergency Medicine
DX: E78.5 Hyperlipidemia, unspecified (principal); I10 Essential (primary) hypertension; E11.9 Type 2 diabetes mellitus without complications; J44.9 Chronic obstructive pulmonary disease, unspecified
CPT/HCPCS: 36415; 80053; 80061; 82043; 83036; 84439; 84443; 85027

== ENCOUNTER 2025-09-01 12:53 | Outpatient (CLI) | payer OTHER, SELFPAY ==
--- NOTE | ~2025-09-01 | MM_ITS ---
EXAMINATION: MM screening trey BI w darrick HISTORY: Screening. TECHNIQUE: Craniocaudal and mediolateral oblique 3-D tomosynthesis images were obtained and synthetic 2-D images were generated. CAD analysis was submitted and interpreted. COMPARISON: None available. BREAST PARENCHYMAL COMPOSITION: 2022 and 2021 FINDINGS: There are multiple, bilateral, circumscribed nodules/masses, a benign finding. No suspicious masses are seen. There are no suspicious calcifications. No unexplained architectural distortion is seen. There are no skin or nipple abnormalities identified. There is no adenopathy seen on the images submitted. IMPRESSION: No mammographic evidence to suggest malignancy is seen. The patient may return to screening mammography as per ACR guidelines. BI-RADS: 2 - Benign. Reviewed, dictated and finalized at location B. TAPER HELPER
--- OUTSIDE RECORDS SUMMARY | 2025-09-01 13:03 | XMS_ITS | Clinical Summary ---
Author Organization [facility] Address [address] [place] [address] Care Team Providers Care [employer]eral [employer] Licensee Name Role Phone Claude Philip MD Primary Care Provider [phone] Allergies Active Allergy Reactions Criticality Noted Date Comments Iodine Swelling High 10/24/2017 Throat swelling Shellfish Containing Products Shortness of breath High 10/08/2019 Medications carvedilol (COREG) 25 mg tabletIndicatio ns:Essential hypertension Take 1 tablet (25 mg total) by mouth 2 (two) times a day with meals. 120 tablet 3 018 Active Additional Information Patient taking differently:25 mg oral 2 times daily with meals (bkfst, dinner),Indications: hypertension, Informant: Self, Reported on 08/26/2025 fluticasone propionate (FLONASE) 50 mcg/actuation nasal sprayIndication s:Chronic rhinitis Administer 2 sprays into each nostril daily 1 each 2 023 Active Additional Information Patient taking differently:2 spray each nostrilDaily (early AM), Indications: Allergic Rhinitis, Informant: Self, Reported on 08/26/2025 losartan (COZAAR) 100 mg tabletIndicatio ns:hypertension Take 1 tablet (100 mg total) by mouth label pinker before breakfast 023 Active ezetimibe (ZETIA) 10 mg tabletIndicatio ns:hypercholest erolemia Take 1 tablet (10 mg total) by mouth label pinker before breakfast 023 Active Kerendia 20 mg tabletIndicatio ns:heart Take 1 tablet by mouth label pinker before breakfast [address] (PROTONIX) 40 mg EC tablet 024 Active albuterol HFA (Ventolin HFA) 90 mcg/actuation inhalerIndicati ons:Bronchospas m Prevention,Learning And Development Specialist gayatri Obstructive Pulmonary Disease Inhale 2 puffs every 4 (four) hours as needed for wheezing or shortness of breath 1 each 5 024 2024 Active tiotropium bromide (SPIRIVA RESPIMAT) 2.5 mcg/actuation inhalerIndicati ons:Chronic obstructive pulmonary disease, unspecified COPD type (HCC) Inhale 2 puffs daily 4 g 4 024 Active Additional Information Patient taking differently:2 puff inhalation2 times daily, Indications: Bronchospasm Prevention with COPD, Informant: Self, Reported on 08/26/2025 dulaglutide (TRULICITY) 3 mg/0.5 mL pen injectorIndicat ions:Type 2 diabetes mellitus with hyperglycemia, without long-term current use of insulin ([facility]) Inject 0.5 mL (3 mg total) under the skin once a week 2 mL 11 025 2025 Active Additional Information Patient taking differently:3 mg subcutaneous Weekly,Indications: type 2 diabetes mellitus, , Informant: Self, Reported on 08/26/2025 aspirin 81 mg enteric coated tabletIndicatio ns:heart health Take 1 tablet (81 mg total) by mouth label pinker before breakfast Active estradioL (ESTRACE) 0.01 % (0.1 mg/gram) vaginal creamIndication s:Atrophy of Vulva Insert 2 g into the vagina nightly Active amLODIPine (NORVASC) 5 mg tabletIndicatio ns:hypertension Take 1 tablet (5 mg total) by mouth label pinker before breakfast Active montelukast (SINGULAIR) 10 mg tabletIndicatio ns:Chronic rhinitis Take 1 tablet (10 mg total) by mouth nightly 90 tablet 1 025 Active empagliflozin (JARDIANCE) 10 mg tabletIndicatio ns:Heart Failure Take 1 tablet (10 mg total) by mouth label pinker before breakfast 90 tablet 025 Active blood glucose diagnostic (Contour Test Strips) stripIndication s:Type 2 diabetes mellitus with other specified complication, without long-term current use of insulin Use test strips to test blood sugars twice a day. 100 each 3 Active lancets miscIndications :Type 2 diabetes mellitus with other specified complication, without long-term current use of insulin Use as directed to test blood sugars twice daily. 100 each 2 Active chlorthalidone (HYGROTON) 25 mg tablet Take 1 tablet (25 mg total) by mouth daily 30 tablet 1 025 2025 Active atorvastatin (LIPITOR) 80 mg tabletIndicatio ns:Hyperlipidem ia associated with type 2 diabetes mellitus (HCC) Take 1 tablet (80 mg total) by mouth daily 30 tablet 3 025 2025 Active Contour Plus Blue Meter miscIndications :Type 2 diabetes mellitus with other specified complication, without long-term current use of insulin USE METER TO CHECK BLOOD GLUCOSE TWICE A DAY. 1 each Active docusate sodium (Colace) 100 mg capsuleIndicati ons:constipatio n Take 1 capsule (100 mg total) by mouth 2 (two) times a day 60 capsule 1 025 2024 Active acetaminophen (TYLENOL) 500 mg tablet Take 1 tablet (500 mg total) by mouth every 6 (six) hours as needed for pain 60 tablet Active ibuprofen (ADVIL,MOTRIN) 600 mg tabletIndicatio ns:Pain Take 1 tablet (600 mg total) by mouth every 6 (six) hours as needed for pain 60 tablet Active polyethylene glycol (Miralax) 17 gram/dose bulk powderIndicatio ns:constipation Take 17 g by mouth 2 (two) times a day 510 g Active ondansetron (ZOFRAN) 4 mg tabletIndicatio ns:Prevention of Post-Operative Nausea and Vomiting Take 1 tablet (4 mg total) by mouth every 8 (eight) hours as needed for nausea or vomiting 20 tablet Active oxyCODONE (ROXICODONE) 5 mg immediate release tabletIndicatio ns:Pain Take 1 tablet (5 mg total) by mouth every 4 (four) hours as needed for pain 15 tablet Active chlorthalidone (HYGROTON) 25 mg tablet Take 1 tablet (25 mg total) by mouth daily 30 tablet 5 025 2024 Discontinued(R eorder) atorvastatin (LIPITOR) 80 mg tabletIndicatio ns:Hyperlipidem ia associated with type 2 diabetes mellitus (HCC) Take 1 tablet (80 mg total) by mouth daily 30 tablet 3 2024 Discontinued(R eorder) Contour Plus Blue Meter miscIndications :Type 2 diabetes mellitus with other specified complication, without long-term current use of insulin Use meter to check blood sugar twice a day. 1 each 2024 Discontinued acetaminophen (TYLENOL) 500 mg tablet Take 1 tablet (500 mg total) by mouth every 6 (six) hours as needed for pain 60 tablet 2024 Discontinued ibuprofen (ADVIL,MOTRIN) 600 mg tabletIndicatio ns:Pain Take 1 tablet (600 mg total) by mouth every 6 (six) hours as needed for pain 60 tablet 2024 Discontinued polyethylene glycol (Miralax) 17 gram/dose bulk powderIndicatio ns:constipation Take 17 g by mouth 2 (two) times a day 510 g 2024 Discontinued ondansetron (ZOFRAN) 4 mg tabletIndicatio ns:Prevention of Post-Operative Nausea and Vomiting Take 1 tablet (4 mg total) by mouth every 8 (eight) hours as needed for nausea or vomiting 20 tablet 2024 Discontinued oxyCODONE (ROXICODONE) 5 mg immediate release tabletIndicatio ns:Pain Take 1 tablet (5 mg total) by mouth every 4 (four) hours as needed for pain 15 tablet 2024 Discontinued Active Problems Problem Noted Date Diagnosed Date 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 Less than 50% stenosis bilaterally. Continue aspirin statin therapy follow-up 1 year for carotid duplex and annual surveillance Assessment & Plan (07/04/2025 12:58 PM CDT): Asymptomatic. Positive bruit check carotid duplex. Patient with the appropriate risk factors. Peripheral arterial occlusive disease 07/04/2025 Assessment & Plan (08/26/2025 3:[address] [employer]): Right bypass graft occluded noted on duplex today. Non limiting claudication to right lower extremity which patient status has been ongoing in his not worsened. Recommend continuing aspirin statin therapy and continue daily activity walking regimen. Follow-up 6 months for routine surveillance with lower extremity arterial duplex of right common iliac artery stent and bilateral lower extremity duplex with ABIs. Assessment & Plan (07/04/2025 12:59 PM CDT): History of right femoral endarterectomy with right femoral to popliteal artery bypass graft at [facility] in December of 2023. Moving her care to [facility]. We will check duplex follow up 1 month. Claudication 05/27/2025 Assessment & Plan (05/27/2025 5:04 PM CDT): Symptomatic claudication at ~ block walking distance, h/I right iliac stent. Plan: Refer to vascular surgery for further management. Orders: Ambulatory referral to Vascular Surgery; Future Chronic maxillary sinusitis 05/15/2021 Assessment & Plan [...] diabetes kwame morfin 05/04/2020 Assessment & Plan (08/26/2025 3:[address] [employer]): Stable controlled. Continue Lipitor Assessment & Plan (05/27/2025 5:04 PM CDT): With established peripheral vascular disease, Increase atorvastatin to 80 mg daily (high-intensity therapy). Orders: atorvastatin (LIPITOR) 80 mg tablet; Take 1 tablet (80 mg total) by mouth daily Assessment & Plan (09/21/2024 7:[address] [employer]): Chronic, stable Continue Statin therapy Assessment & Plan (06/24/2024 10:51 AM CDT): Chronic problem. Near goal on current Atorvastatin 20mg & Zetia 10mg daily. Last lipid panel: 03/30/24 LDL=77, WK=074. Assessment & Plan (04/05/2024 7:33 PM CDT): Continue current statin therapy Tolerating well Assessment & Plan (09/14/2021 12:[address] [employer]): Continue current statin therapy Tolerating well Assessment [...] management Assessment & Plan (09/14/2021 12:[address] [employer]): Chronic, stable On Gabapentin for symptomatic management Assessment & Plan (01/31/2021 9:55 PM CDT): Chronic, stable On Gabapentin for symptomatic management Assessment & Plan (05/04/2020 9:37 AM CDT): Chronic, stable On Gabapentin for symptomatic management COPD with acute exacerbation 10/13/2018 Assessment & Plan (10/13/2018 10:[address] [employer]): COPD is worsening. Continue current medications. Recommend going to Cuco sanchez in office Wheezing throughout Refer to Pulm [...] 03/10/2018 Assessment & Plan (10/13/2018 10:[address] [employer]): Obesity is unchanged. Discussed the patient's BMI. [...] greens, fat-free milk, cottage cheese, nuts like snthdce-zoqjxta-bkqnsbx, protein bars with 10-15 g of protein [...] greens, fat-free milk, cottage cheese, nuts like flnohul-fzdkzoe-bgnndyu, protein bars with 10-15 g of protein [...] greens, fat-free milk, cottage cheese, nuts like atnuwig-xvhiath-mimwumj, protein bars with 10-15 g of protein [...] . Mixed hyperlipidemia 12/30/2017 Assessment & Plan (07/04/2025 12:59 PM CDT): Hyperlipidemia chronic controlled. Continue statin therapy. Assessment & Plan (12/30/2017 9:38 PM CDT): [...] (12/17/2017): Added automatically from request for surgery [id number] Screening mammogram, encounter for 12/09/2017 Hypertension associated with diabetes 11/18/2017 Assessment & Plan (08/26/2025 3:[address] [employer]): Stable and controlled. Continue amlodipine losartan carvedilol. Assessment & Plan (05/27/2025 5:04 PM CDT): Uncontrolled Hypertension with home BP 140-150 systolic. Continue carvedilol 25 mg BID. Continue losartan 100 mg daily. Start chlorthalidone 25 mg daily. Continue home BP monitoring. Orders: ECG 12 lead Assessment & Plan (09/21/2024 7:[address] [employer]): Chronic well controlled Continue carvedilol 25mg bid, losartan 100mg daily, amlodipine 5mg daily Assessment & Plan (06/24/2024 10:49 AM CDT): Chronic problem. Controlled on current carvedilol 25mg bid, losartan 100mg daily, amlodipine 5mg daily Assessment & Plan (09/14/2021 12:[address] [employer]): Chronic, improving control Continue current medication regimen [...] 140/90 Assessment & Plan (12/09/2017 4:[address] [employer]): Hypertension is unchanged. UNCONTROLLED Stop smoking. Blood [...] tab. Assessment & Plan (11/18/2017 1:[address] [employer]): Hypertension is unchanged. Stop smoking. Blood pressure [...] medication is on the $4 list at [facility] and she had to pay $27 [...] 11/18/2017 Assessment & Plan (11/18/2017 12:[address] [employer]): Hem A1C 7.5 Will start on Metformin [...] given. 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 Renal cysts, [...] 11/18/2017 Assessment & Plan (11/18/2017 12:[address] [employer]): Recent CT scan in October showed Diverticulosis without diverticulitis. Will continue to monitor. Pt. Has never had a colonoscopy and a referral was put in for her. Sleep disorder 11/18/2017 Assessment & Plan (10/13/2018 10:[address] [employer]): Had sleep study Will f/u with Dr. Herrera Assessment & Plan (11/18/2017 12:[address] [employer]): Pt has trouble going to sleep, staying [...] SmokefreeTXT or calling a quitline. Using the [employer] peggy for tips and inspiration to help [...] SmokefreeTXT or calling a quitline. Using the [employer] peggy for tips and inspiration to help [...] completely Assessment & Plan (12/09/2017 10:[address] [employer] [address]): Quit Smoking https://smokefree.gov/ Nicotine replacement therapy (NRT) [...] SmokefreeTXT or calling a quitline. Using the [employer] peggy for tips and inspiration to help [...] MONEY Assessment & Plan (11/18/2017 12:[address] [employer]): Counseling provided. Pt. Wants to stop smoking. She smoked x 30 yrs then quit for 12 then started the last 2 years. She smokes 1/2 ppd now and c/o of chronic bronchitis Tobacco abuse counseling 11/18/2017 Assessment & Plan (10/13/2018 10:[address] [employer] [address]): Still smoking average about 7/ day Smoking [...] SmokefreeTXT or calling a quitline. Using the [employer] peggy for tips and inspiration to help [...] ordered Assessment & Plan (11/18/2017 10:[address] [employer]): Quit Smoking https://smokefree.gov/ Nicotine replacement therapy (NRT) [...] SmokefreeTXT or calling a quitline. Using the [employer] peggy for tips and inspiration to help [...] use of insulin 11/18/2017 Assessment & Plan (08/26/2025 3:[address] [employer]): Stable controlled. Continue diabetic diet, insulin, Trulicity Assessment & Plan (09/21/2024 7:[address] [employer]): Chronic, overall well controlled, Hemoglobin A1c 6.6%, [...] no DMR/DME) UTD on labs. Discussed with Zully Roth: Strive for regular exercise (30min most [...] months Assessment & Plan (09/14/2021 12:[address] [employer]): Chronic, uncontrolled, worsening A1c today 8.0% Counseled [...] is worsening. Increase Metformin to 1000mg BID Entry Level Sales Representative referral. Diabetes will be reassessed in 3 [...] patent. Assessment & Plan (12/09/2017 4:[address] [employer]): Diabetes is improving with treatment. Dietary recommendations [...] AIC Assessment & Plan (11/18/2017 10:[address] [employer] [address]): Diabetes is newly identified. Dietary recommendations for [...] [facility] Will add Neurontin today. Pt to start slowly and just take one at bedtime. Encourage pt. To exercise and stop smoking. She does walk with her dogs. Will refer her to Rheumatology and get baseline RA And SON labs. Assessment & Plan (11/18/2017 12:[address] [employer] [address]): Pt states she was diagnosed in 2009. [...] is also on the $4 list at [facility]. She also c/o of numbness and tingling in her feet and legs and hands. In addition, start Citalopram 20 mg po daily. She is to start 1/2 tab for a week then a whole tablet. Cyclobenzaprine 5 mg TID was started for muscle spasms and her fibromyalgia. Acute cystitis without hematuria 11/18/2017 Assessment & Plan (11/18/2017 12:[address] [employer]): Complete antibiotic as prescribed Do not hold [...] 11/18/2017 Assessment & Plan (11/18/2017 12:[address] [employer] [address]): Pt stated she just had a well women's exam. She stated she told the doctor that she had some vaginal bleeding. We will need to get the office notes and plans. Referrals for Laura and colonoscopy given. Malignant hyperthermia Encounters Date Type Department Care Team Description 08/27/2025 Orders Only [facility] Medical [facility] Vascular and Vein Surgery [address] [place] [address] Carlos Arias MD Aftercare following surgery of the circulatory system (Primary Dx) 08/26/2025 3:[address] [employer] [address] Office Visit [facility] Vascular and Vein Surgery [address] [place] [address] Olivia Chavarria NP Bilateral carotid artery stenosis (Primary Dx); Hyperlipidemia associated with type 2 diabetes mellitus (HCC); Hypertension associated with diabetes (HCC); Type 2 diabetes mellitus with hyperglycemia, without long-term current use of insulin (HCC); Peripheral arterial occlusive disease 08/26/2025 1:[address] [employer] [address] - 08/26/2025 11:[address] [employer] [address] Hospital Encounter [facility] Office Building [address] [place] [phone] Aftercare following surgery of the circulatory system Discharge Disposition: Discharge to home or self care 08/26/2025 1:[address] [employer] [address] - 08/26/2025 11:[address] [employer] [address] Hospital Encounter [facility] Office [address] [place] [phone] Aftercare following surgery of the circulatory system Discharge Disposition: Discharge to home or self care 08/26/2025 1:[address] [employer] [address] - 08/26/2025 11:[address] [employer] [address] Hospital Encounter [facility] Office Building [address] [place] [phone] Bilateral carotid artery stenosis Discharge Disposition: Discharge to home or self care 08/26/2025 1:[address] [employer] [address] - 08/26/2025 11:[address] [employer] [address] Hospital Encounter [facility] Office Building [address] [place] [phone] Aftercare following surgery of the circulatory system Discharge Disposition: Discharge to home or self care 08/26/2025 Telephone [facility] Medical Group Cardiology [address] [phone] Nahed Rinaldi MD 08/21/2025 Telephone [facility] Medicine Obstetrics and Gynecology [facility] Out[facility] 7th Floor [address] [place] [address] Maryam Barragan MD 08/20/2025 3:[address] [employer] [address] Anesthesia Event [facility] Operating Room 1 [place] [address] Hoang Browne MD Johnston, Shannon M., NP 08/20/2025 3:[address] [employer] [address] - 08/20/2025 6:[address] [employer] Surgery [facility] Operating Room [address] [place] [address] Manuel Bennett MD (VERONICA / ADINA COMBO) EXCISION VAGINAL MESH 08/20/2025 1:[address] [employer] [address] - 08/20/2025 9:[address] [employer] [address] Hospital Encounter [facility] Operating Room [address] [place] [phone] Manuel Bennett MD Complication of implanted vaginal mesh, unspecified complication, subsequent encounter Discharge Disposition: Discharge to home or self care 08/19/2025 Telephone [facility] Obstetrics and Gynecology [address] [place] [address] 7th Floor [address] [place] [phone] Maritza Wesley 08/19/2025 Telephone [facility] Obstetrics and Gynecology [address] [place] [address] 13th [place] [phone] Jeni Acevedo Surgery Confirmation 08/16/2025 Telephone [facility] Obstetrics and Gynecology [address] [place] [address] 7th Floor [address] [place] [phone] Jenniffer Doran RN Surgery/ASA 08/02/2025 Telephone [facility] Medical Group Diabetes and Endocrinology [address] [place] [phone] Katarzyna Alclaa MD Med Refill 07/30/2025 12:30 PM CDT Office Visit [facility] Tumor Clinic [address] [place] [phone] Vulvar lesion (Primary Dx) 07/30/2025 9:20 AM CDT Office Visit [facility] Obstetrics and Gynecology [address] [place] [address] 7th Floor [address] [place] [phone] Manuel Bennett MD Complication of implanted vaginal mesh, unspecified complication, subsequent encounter (Primary Dx); Urethral sphincter deficiency, intrinsic (ISD) 07/30/2025 7:30 AM CDT Pre-Admission Testing [facility] for Preoperative Assessment and [facility] [address] [place] [phone] Preoperative testing (Primary Dx); Complication of implanted vaginal mesh, unspecified complication, subsequent encounter 07/30/2025 Orders Only [facility] Medical Group Pulmonology [address] [place] [phone] Sue Roland MD Chronic rhinitis 07/23/2025 Telephone [facility] Medical Group Cardiology [address] [place] [phone] Nahed Rinaldi MD 07/14/2025 Telephone [facility] [address] [place] [address] [place] [phone] Junie Yang, RN 07/12/2025 Telephone [facility] [address] [place] [address] [place] [phone] Yanira Delaney RN 07/09/2025 Telephone [facility] [address] [place] [address] [place] [phone] Tyrell Bauer MD 07/05/2025 11:02 AM CDT - 07/05/2025 11:59 PM CDT Hospital Encounter [facility] [address] [address] Vulvar lesion Discharge Disposition: Discharge to home or self care 07/05/2025 10:20 AM CDT Procedure visit [facility] Medicine Obstetrics and Gynecology [address] [place] [address] [place] [phone] Manuel Bennett MD Complication of implanted vaginal mesh, unspecified complication, subsequent encounter (Primary Dx); Vulvar lesion 07/05/2025 9:00 AM CDT Office Visit [facility] Medicine Obstetrics and Gynecology [address] [place] [address] [place] [phone] Urethral sphincter deficiency, intrinsic (ISD) (Primary Dx); ALLA (stress urinary incontinence, female) 06/22/2025 Orders Only [facility] [address] [place] [address] [place] [phone] Tyrell Bauer MD ALLA (stress urinary incontinence, female) (Primary Dx); Complication of implanted vaginal mesh, unspecified complication, subsequent encounter 06/21/2025 12:30 PM CDT Office Visit [facility]etrics [facility] Gynecology Clinic [address] [place] [address] [facility] 3rd Floor [address] [place] [phone] Manuel Bennett MD Urinary symptom or sign (Primary Dx) 06/21/2025 Telephone [facility]stetrics and Gynecology Clinic [address] [place] [address] 3rd Floor [address] [place] [phone] Junie Yang RN 06/17/2025 9:30 AM CDT Office Visit [facility] Medical [facility] Vascular and Vein Surgery [facility] [place] [address] Carlos Arias MD Aftercare following surgery of the circulatory system (Primary Dx); Bilateral carotid artery stenosis; Peripheral arterial occlusive disease; Mixed hyperlipidemia 06/16/2025 Orders Only [facility] Cardiology [facility] [place] [address] Nahed Rinaldi MD Hypertension associated with diabetes (HCC) (Primary Dx); Hyperlipidemia associated with type 2 diabetes mellitus (HCC) 06/15/2025 Telephone [facility] Cardiology [facility] [place] [address] Nahed Rinaldi MD from Last 3 Months Immunizations Immunization Administration Dates Next Due Influenza, Quadrivalent, Split, Intramuscular Influenza, Unspecified 12/13/2021 Surgical History Surgery Date Site/Laterality Comments HYSTERECTOMY 10/07/2007 - 10/06/2008 partial CYSTECTOMY bladder tuck and bladder closure HAND SURGERY PITUITARY SURGERY THYROID SURGERY CELIAC ARTERY ANGIOPLASTY Right stent replacement ANGIOPLASTY 2023 TUBAL LIGATION 10/1983 COLON SURGERY 06/2018 Medical History Medical History Date Comments HTN (hypertension) Fibromyalgia 2009 Diabetes mellitus 2019 COPD (chronic obstructive pulmonary disease) 202 0 Neuropathy Hyperlipidemia Bronchitis Obstructive sleep apnea GERD (gastroesophageal reflux disease) June 2023 Depression 2022 Anemia 1983 Chronic bronchitis (HCC) Chronic kidney disease 2019 Emphysema of lung 2021 Anxiety Sep 2024 Arthritis 2021 not sure Liver disease 2022 Alcoholism (HCC) 1987 to 2000 Varicella 1967 Urinary incontinence 2000 HPV (human papilloma virus) infection 2022 Menopause ovarian failure 2019 Ovarian cyst 2008 Uterine prolapse 2007 CTS (carpal tunnel syndrome) 2020 Recurrent loss, an tepartum condition or complication 1980 1982 Delayed emergence from general anesthesia Family History Medical History Relation Name Comments Depression Brother 1 ruben garcia Miscarriages / Stillbirths Brother 1 ruben garcia Learning disabilities Brother 2 jose de jesus o garcia Alcohol abuse Father анна bach garcia Heart disease Father анна bach garcia Alcohol abuse Maternal Grandmother lenin orozco COPD Maternal Grandmother lenin orozco Alcohol abuse Mother jessica borrego margaret Cancer Mother jessica borrego margaret Diabetes Mother jessica borrego margaret Heart attack Mother jessica borrego margaret Heart disease Mother jessica robles Lung cancer Mother jessica borrego margaret Kidney disease Mother's Brother meliza holbrook margaret Brain cancer Sister 1 Lung cancer Sister 1 Anemia Sister 2 finesse talha Cancer Sister 2 cecilia borrego talha Anemia Sister 3 jah damon Hypertension Sister 3 jah damon Learning disabilities Sister 3 jah damon Mental illness Sister 3 jah damon Vision loss Sister 3 jah damon Arthritis Sister 4 vivkaren damon Cancer Sister 5 cecilia borrego jonathan Anesthesia problems Neg Hx Relation Name Status Comments Brother 1 ruben momin garcia Alive Brother 2 jose de jesus bach garcia Alive Father анна chavarriaggins Maternal Grandmother lenin orozco Alive Mother jessica robles Mother's Brother meliza holbrook margaret Alive Sister 1 Sister 2 finesse talha Alive Sister 3 jah damon Alive Sister 4 vivan damon Alive Sister 5 cecilia borrego jonathan Alive Social History Tobacco Use Types Packs/Day Years Used Date Smoking Tobacco: Former Cigarettes 0.8 38 1 11/10/1984 - 09/09/2023 Smokeless Tobacco: Never Tobacco Cessation:Counseling Given: Not Answered Alcohol Use Standard Drinks/Week Comments Not Currently 0 (1 standard drink = 0.6 oz pur e alcohol) PHQ-2 Answer Date Recorded PHQ-2 Total Score (If total score is 3 or more points, staff should administer the PHQ-9) 3 09/14/2021 AUDIT-C Answer Date Recorded Q1: How often do you have a drink containing alcohol? Never 08/20/2025 Q2: How many drinks containi ng alcohol do you have on a typical day when you are drinking? Patient does not drink Q3: How often do you have si x or more drinks on one occasion? Never 08/20/2025 Personal Safety Answer Date Recorded Have you ever been in or are you currently in a harmful physical or emotional relationship or is someone making you feel afraid or unsafe? Denies 08/20/2025 Comments No Sex and Gender Information Value Date Recorded Sex Assigned at Not on file Legal Sex Female 9:[address] Gender Identity Female 01/31/2021 7:50 AM CDT Sexual Orientation Straight 01/31/2021 7: 50 AM CDT Last Filed Vital Signs Vital Sign Reading Time Taken Comments Blood Pressure 129/87 08/26/2025 2:[address] [employer] Pulse 88 08/26/2025 2:[address] [employer] Temperature 36 C (96.8 F) 08/20/2025 8:[address] [employer] Respiratory Rate 17 08/20/2025 8:[address] [employer] Oxygen Saturation 95% 08/20/2025 8:[address] [employer] Inhaled Oxygen Concentration - - Weight 80.7 kg (178 lb) 08/26/2025 2:[address] [employer] Height 165.1 cm (5' 5) 08/26/2025 2:[address] [employer] Body Mass Index 29.62 08/26/2025 2:[address] [employer] Plan of Treatment Health Maintenance Due Date Last Done Comments Hepatitis C Screening 1960 DTaP/Tdap/Td Vaccine (1 - Tdap) 1973 Hepatitis B Screening 1980 Regular Well Visit/Exam 18-64 1980 Pneumococcal vaccine <65 (1 of 2 - PCV) 1981 Zoster Vaccine (1 of 2) 2012 Depression Screening 09/14/2022 09/14/2021, 01/31/2021, 10/13/2018, Additional history exists Breast Cancer Screening-Mammogram 01/13/2023 022, 01/13/2022 Albumin Creatinine Ratio, Urine 03/30/2025 03/30/2024, 12/28/2021, 01/31/2021, Additional history exists Lipid Panel 03/30/2025 03/30/2024, 12/06, 01/31/2021, Additional history exists Lung Cancer Screening 09/12/2025 09/11/2024 , 09/10/2023, 04/02/2019 Foot Exam 09/21/2025 09/21/2024, 03/08, 09/14/2021, Additional history exists Hemoglobin A1C 01/28/2026 07/30/2025, 04/07, 09/21/2024, Additional history exists Dilated Eye Exam 03/18/2026 03/18/2024, 10/06/2021 eGFR 07/30/2026 07/30/2025, 03/08, 12/28/2021, Additional history exists Colon Cancer Screening-Colonoscopy 03/18/2028 03/18/2018 Colon Cancer Screening-CT Colonography Discontinued 03/18/2018 Colon Cancer Screening-DNA Stool Discontinued 03/18/20 18 Colon Cancer Screening-FIT Discontinued 03/18/2018 Colon Cancer Screening-Sigmoidoscopy Discontinued 03/18/2018 Influenza Vaccine Discontinued 12/13/2021, 06/26/2019 Procedures Procedure Name Priority Date/Time Associated Diagnosis Comments US ARTERIAL DUPLEX LOWER EXTREMITY RIGHT LIMITED Schedule Routine, Read Routine (OP Routine) 08/26/2025 2:[address] [employer] Aftercare following surgery of the circulatory system US NARCISO Schedule Routine, Read Routine (OP Routine) 08/26/2025 2:[address] [employer] Aftercare following surgery of the circulatory system US CAROTIDS DUPLEX BILATERAL Schedule Routine, Read Routine (OP Routine) 08/26/2025 2:[address] [employer] Bilateral carotid artery stenosis US DUPLEX SCAN OF AORTA: INFERIOR VENA CAVA, ILIAC, COMPLETE Routine 08/26/2025 2:[address] [employer] Aftercare following surgery of the circulatory system POCT GLUCOSE DEVICE Routine 08/20/2025 6 :[address] [employer] SURGICAL PATHOLOGY Routine 08/20/2025 4: [address] [employer] Complication of implanted vaginal mesh, unspecified complication, subsequent encounter POCT GLUCOSE DEVICE Routine 08/20/2025 4 :[address] [employer] IA AN PROCEDURE PLACEHOLDER Routine 08/20/2025 4:[address] [employer] IA AN ELECTIVE ENDOTRACHEAL AIRWAY Routine 08/20/2025 4:[address] [employer] WIDE LOCAL EXCISION - VULVA 08/20/2025 3:[address] [employer] Complication of implanted vaginal mesh, unspecified complication, subsequent encounter CYSTOSCOPY 08/20/2025 3:[address] [employer] Complication of implanted vaginal mesh, unspecified complication, subsequent encounter EXCISION VAGINAL MESH 08/20/2025 3:[address] [employer] Complication of implanted vaginal mesh, unspecified complication, subsequent encounter POCT GLUCOSE DEVICE Routine 08/20/2025 2 :[address] [employer] EGFR Routine 07/30/2025 9:10 AM CDT Preoperative testing DIFFERENTIAL AUTO Routine 07/30/2025 9:1 0 AM CDT Complication of implanted vaginal mesh, unspecified complication, subsequent encounter URINALYSIS AND REFLEX TO MICROSCOPIC Routine 07/30/2025 9:10 AM CDT Preoperative testing BASIC METABOLIC PANEL Routine 07/30/2025 9:10 AM CDT Preoperative testing TYPE AND SCREEN 14 DAY Routine 07/30/2025 9:10 AM CDT Complication of implanted vaginal mesh, unspecified complication, subsequent encounter CBC WITH AUTO DIFFERENTIAL Routine 07/30/2025 9:10 AM CDT Complication of implanted vaginal mesh, unspecified complication, subsequent encounter POCT HEMOGLOBIN A1C Routine 07/30/2025 8 :22 AM CDT SURGICAL PATHOLOGY Routine 07/05/2025 11 :02 AM CDT Vulvar lesion POCT URINALYSIS DIPSTICK Routine 07/05/2025 9:20 AM CDT ALLA (stress urinary incontinence, female) URODYNAMICS 07/05/2025 9:19 AM CDT POCT URINALYSIS (CLINITEK) Routine 06/21/2025 12:[address] LUNG CANCER SCREENING Schedule Routine, Read Routine (OP Routine) 09/11/2024 7:[address] [employer] Cigarette nicotine dependence in remission LIPID PANEL Routine 03/30/2024 1:49 PM CDT [...] Recently Relevant to Health Maintenance Results * US Arterial Duplex Lower Extremity Right Limited (08/26/2025 2:[address] [employer]) Anatomical Region Laterality Modality Vascular Right Ultrasound 08/26/2025 1:[address] [employer] Narrative 08/27/2025 12:[address] [employer] Lower Extremity Arterial Duplex Report Patient Name: ZULLY ROTH F : 1960 (65y 5m) Sex: F Study Date: 08/26/2025 01:55:15 PM Ht(Inch): Wt(Lb): BSA: Sales Floor Team Leader: TANIA HEARN Provider: CARLOS ARIAS Quality: Adequate Ref Provider: CARLOS ARIAS PROCEDURES: Arterial Report: A non-invasive vascular imaging study of the right lower extremity arteries was performed using B-mode ultrasound, color flow, and spectral Doppler. A non-invasive vascular imaging study of the right lower extremity arteries and bypass graft was performed using B-mode ultrasound, color flow, and spectral Doppler. INDICATIONS: Z48.812 Encounter for surgical aftercare following surgery on the circulatory system. HISTORY: The patient had a previous vascular surgery on S/P RT FEM-POP BPG 12/28/24. COMPARISONS: The previous exam was completed on 02/12/24 OSH. Compared to prior BPG OCCLUDED. MEASUREMENTS: Right Value Rt CLOUD SOLUTIONS ARCHITECT Prx PSV 66.00 cm/sec Rt Profunda Prx PSV 66.46 cm/sec Rt Pop Prx PSV 17.00 cm/sec Rt Pop Dst PSV 21.00 cm/sec GRAFTS: Right Value Location RT THIGH Rt Anast Prx PSV 0.00 cm/sec Rt BPG Prx PSV 0.00 cm/sec Rt BPG Mid PSV 0.00 cm/sec Rt BPG Dst PSV 0.00 cm/sec Rt Anast Dst PSV 0.00 cm/sec FINDINGS: Bypass Graft: The bypass graft is located in the RT THIGH. Occluded bypass graft. Occluded proximal anastomosis, proximal portion of the graft, mid portion of the graft, distal portion of the graft and distal anastomosis. CONCLUSION: 1. The arterial bypass graft is occluded. ATTESTATION: I have reviewed and interpreted the pertinent images and measurements of this study. I attest to the conclusions in the final report that is provided above. Electronically Signed By: Carlos Arias MD 08/27/2025 12:30:[address] [employer] Procedure Note Carlos Arias MD - 08/27/2025 Lower Extremity Arterial Duplex Report Patient Name: ZULLY ROTH F : 1960 (65y 5m) Sex: F Study Date: 08/26/2025 01:55:15 PM Ht(Inch): Wt(Lb): BSA: Sales Floor Team Leader: TANIA HEARN Provider: CARLOS ARIAS Quality: Adequate Ref Provider: CARLOS ARIAS PROCEDURES: Arterial Report: A non-invasive vascular imaging study of the right lowerextremity arteries was performed using B-mode ultrasound, color flow, and spectralDoppler. A non-invasive vascular imaging study of the right lower extremity arteriesand bypass graft was performed using B-mode ultrasound, color flow, and spectralDoppler. INDICATIONS: Z48.812 Encounter for surgical aftercare following surgery on thecirculatory system. HISTORY: The patient had a previous vascular surgery on S/P RT FEM-POP BP12/28/24. COMPARISONS: The previous exam was completed on 02/12/24 OSH. Compared to prior BPGOCCLUDED. MEASUREMENTS: Right Value Rt CLOUD SOLUTIONS ARCHITECT Prx PSV 66.00 cm/sec Rt Profunda Prx PSV 66.46 cm/sec Rt Pop Prx PSV 17.00 cm/sec Rt Pop Dst PSV 21.00 cm/sec GRAFTS: Right Value Location RT THIGH Rt Anast Prx PSV 0.00 cm/sec Rt BPG Prx PSV 0.00 cm/sec Rt BPG Mid PSV 0.00 cm/sec Rt BPG Dst PSV 0.00 cm/sec Rt Anast Dst PSV 0.00 cm/sec FINDINGS: Bypass Graft: The bypass graft is located in the RT THIGH. Occluded bypassgraft. Occluded proximal anastomosis, proximal portion of the graft, mid portionof the graft, distal portion of the graft and distal anastomosis. CONCLUSION: 1. The arterial bypass graft is occluded. ATTESTATION: I have reviewed and interpreted the pertinent images and measurements ofthis study. I attest to the conclusions in the final report that is provided above. Electronically Signed By: Carlos Arias MD 08/27/2025 12:30:[address] [employer] us Carlos Arias MD IMG US PROCEDURES Final Re sult * US NARCISO (08/26/2025 2:[address] [employer]) Anatomical Region Laterality Modality Vascular N/A Ultrasound 08/26/2025 1:[address] [employer] Narrative 08/27/2025 12:[address] [employer] Lower Extremity Arterial Doppler Report Patient Name: ZULLY ROTH F : 1960 Study Date: 08/26/2025 1:32:00 PM Sex: F Sales Floor Team Leader: DHIRAJ MARIN RVT Ref Provider: CARLOS ARIAS Quality: Adequate Order Provider: CARLOS ARIAS PROCEDURES: Arterial Report: Ankle - Brachial Index Doppler exam. INDICATIONS: Z48.812 Encounter for surgical aftercare following surgery on the circulatory system. HISTORY: History of prior intervention on 12/28/24 RT FEM-POP BPG. COMPARISONS: The previous exam was completed on 05/14/24. Compared to prior No significant change. MEASUREMENTS: Right Value Left Value Rt Brachial Pressure 152 mmHg Lt Brachial Pressure 128 mmHg Rt WET PROCESS HEAD MILLER Pressure 115 mmHg Lt WET PROCESS HEAD MILLER Pressure 155 mmHg Rt DPA Pressure 88 mmHg Lt DPA Pressure 136 mmHg Rt 1st Digit Pressure 73 mmHg Lt 1st Digit Pressure 90 mmHg Rt PT NARCISO Resting 0.76 Lt PT NARCISO Resting 1.02 Rt DP NARCISO Resting 0.58 Lt DP NARCISO Resting 0.89 Rt Digit 1/Arm Index 0.48 Lt Digit 1/Arm Index 0.59 FINDINGS: Right Posterior Tibial Artery Analysis: The posterior tibial waveform is monophasic. Right Dorsalis Pedis Artery Analysis: The dorsalis pedis waveform is monophasic. Right Digits: The right digit waveform is dampened. Left Posterior Tibial Artery Analysis: The posterior tibial waveform is triphasic. Left Dorsalis Pedis Artery Analysis: The dorsalis pedis waveform is biphasic. Left Digits: The left digit waveform is dampened. Comments: A significant pressure difference between the systolic brachial pressures is indicative of an arterial stenosis or occlusion in the left upper extremity. - CONCLUSIONS: 1. Ankle-brachial index of 0.5-0.8 is consistent with claudication and a moderate occlusive arterial disease in the right lower extremity. 2. Ankle-brachial index of 0.9-1.3 is within normal limits in the left lower extremity. ATTESTATION: I have reviewed and interpreted the pertinent images and measurements of this study. I attest to the conclusions in the final report that is provided above. Electronically Signed By: Carlos Arias MD 08/27/2025 11:23:[address] Procedure Note Carlos Arias MD - 08/27/2025 Lower Extremity Arterial Doppler Report Patient Name: ZULLY ROTH F : 1960 Study Date: 08/26/2025 1:32:00 PM Sex: F Sales Floor Team Leader: DHIRAJ MARIN RVT Ref Provider: CARLOS ARIAS Quality: Adequate Order Provider: CARLOS ARIAS PROCEDURES: Arterial Report: Ankle - Brachial Index Doppler exam. INDICATIONS: Z48.812 Encounter for surgical aftercare following surgery on thecirculatory system. HISTORY: History of prior intervention on 12/28/24 RT FEM-POP BPG. COMPARISONS: The previous exam was completed on 05/14/24. Compared to prior Nosignificant change. MEASUREMENTS: Right Value Left Value Rt Brachial Pressure 152 mmHg Lt Brachial Pressure 128 mmHg Rt WET PROCESS HEAD MILLER Pressure 115 mmHg Lt WET PROCESS HEAD MILLER Pressure 155 mmHg Rt DPA Pressure 88 mmHg Lt DPA Pressure 136 mmHg Rt 1st Digit Pressure 73 mmHg Lt 1st Digit Pressure 90 mmHg Rt PT NARCISO Resting 0.76 Lt PT NARCISO Resting 1.02 Rt DP NARCISO Resting 0.58 Lt DP NARCISO Resting 0.89 Rt Digit 1/Arm Index 0.48 Lt Digit 1/Arm Index 0.59 FINDINGS: Right Posterior Tibial Artery Analysis: The posterior tibial waveform is monophasic. Right Dorsalis Pedis Artery Analysis: The dorsalis pedis waveform is monophasic. Right Digits: The right digit waveform is dampened. Left Posterior Tibial Artery Analysis: The posterior tibial waveform is triphasic. Left Dorsalis Pedis Artery Analysis: The dorsalis pedis waveform is biphasic. Left Digits: The left digit waveform is dampened. Comments: A significant pressure difference between the systolic brachial pressuresis indicative of an arterial stenosis or occlusion in the left upper extremity. - CONCLUSIONS: 1. Ankle-brachial index of 0.5-0.8 is consistent with claudication and amoderate occlusive arterial disease in the right lower extremity. 2. Ankle-brachial index of 0.9-1.3 is within normal limits in the leftlower extremity. ATTESTATION: I have reviewed and interpreted the pertinent images and measurements ofthis study. I attest to the conclusions in the final report that is provided above. Electronically Signed By: Carlos Arias MD 08/27/2025 11:23:[address] [employer] us Carlos Arias MD IMG US PROCEDURES Final Re sult * US Carotids Duplex Bilateral (08/26/2025 2:[address] [employer]) Anatomical Region Laterality Modality Vascular Bilateral Ultrasound 08/26/2025 1:[address] [employer] Narrative 08/27/2025 12:[address] [employer] Carotid Duplex Ultrasound Report Patient Name: ZULLY ROTH F : 1960 (65y 5m) Study Date: 08/26/2025 1:19:20 PM Sex: F Sales Floor Team Leader: TANIA HEARN Ref Provider: CARLOS ARIAS Quality: Adequate Order Provider: CARLOS ARIAS PROCEDURES: Carotid Report: Carotid duplex examination of the extracranial arteries was performed using 2D, color and spectral Doppler. Blood Pressure: Right: 150 mmHg. Left: 128 mmHg. INDICATIONS: I65.23 Occlusion and stenosis of bilateral carotid arteries. COMPARISONS: No prior exams. MEASUREMENTS: Right Value Left Value RT Prox CCA PSV 73 cm/sec LT Prox CCA PSV 61 cm/sec RT Prox CCA EDV 14 cm/sec LT Prox CCA EDV 16 cm/sec RT Distal CCA PSV 57 cm/sec LT Distal CCA PSV 73 cm/sec RT Distal CCA EDV 17 cm/sec LT Distal CCA EDV 19 cm/sec RT Prox ICA PSV 82 cm/sec LT Prox ICA PSV 64 cm/sec RT Prox ICA EDV 22 cm/sec LT Prox ICA EDV 17 cm/sec RT Mid ICA PSV 66 cm/sec LT Mid ICA PSV 53 cm/sec RT Mid ICA EDV 19 cm/sec LT Mid ICA EDV 21 cm/sec RT Distal ICA PSV 45 cm/sec LT Distal ICA PSV 66 cm/sec RT Distal ICA EDV 19 cm/sec LT Distal ICA EDV 25 cm/sec RT ECA Prx PSV 61 cm/sec LT ECA Prx PSV 96 cm/sec RT ICA/CCA 1.40 ratio LT ICA/CCA 0.90 ratio Rt Vert PSV 34 cm/sec Lt Vert PSV 27 cm/sec FINDINGS: Rt Common Carotid Artery: Duplex imaging of the right common carotid artery is within normal limits without evidence of atherosclerotic disease. Rt Internal Carotid Artery: The plaque in the right internal carotid artery appears to be heterogeneous and smooth. Atherosclerotic changes of the right internal carotid artery without hemodynamically significant Doppler findings. <50% stenosis. Dive deep. Rt External Carotid Artery: Patent right external carotid artery with evidence of atherosclerotic disease present. Rt Vertebral Artery: The right vertebral artery is patent with antegrade flow. Lt Common Carotid Artery: Duplex imaging of the left common carotid artery is within normal limits without evidence of atherosclerotic disease. Lt Internal Carotid Artery: The plaque in the left internal carotid artery appears to be heterogeneous and smooth. Atherosclerotic changes of the left internal carotid artery without hemodynamically significant Doppler findings. <50% stenosis. Lt External Carotid Artery: The left external carotid artery is patent without evidence of atherosclerotic plaque. Lt Vertebral Artery: The left vertebral artery is patent with antegrade flow. CONCLUSIONS: 1. The right internal carotid artery disease is consistent with a less than 50% stenosis. 2. The left internal carotid artery disease is consistent with a less than 50% stenosis. 3. Normal, antegrade flow is noted in bilateral vertebral arteries. ATTESTATION: I have reviewed and interpreted the pertinent images and measurements of this study. I attest to the conclusions in the final report that is provided above. Electronically Signed By: Carlos Arias MD 08/27/2025 11:21:[address] [employer] [address] Procedure Note Carlos Arias MD - 08/27/2025 Carotid Duplex Ultrasound Report Patient Name: ZULLY ROTH F : 1960 (65y 5m) Study Date: 08/26/2025 1:19:20 PM Sex: F Sales Floor Team Leader: TANIA HEARN Provider: CARLOS ARIAS Quality: Adequate Order Provider: CARLOS ARIAS PROCEDURES: Carotid Report: Carotid duplex examination of the extracranial arterieswas performed using 2D, color and spectral Doppler. Blood Pressure: Right: 150 mmHg. Left: 128 mmHg. INDICATIONS: I65.23 Occlusion and stenosis of bilateral carotid arteries. COMPARISONS: No prior exams. MEASUREMENTS: Right Value Left Value RT Prox CCA PSV 73 cm/sec LT Prox CCA PSV 61 cm/sec RT Prox CCA EDV 14 cm/sec LT Prox CCA EDV 16 cm/sec RT Distal CCA PSV 57 cm/sec LT Distal CCA PSV 73 cm/sec RT Distal CCA EDV 17 cm/sec LT Distal CCA EDV 19 cm/sec RT Prox ICA PSV 82 cm/sec LT Prox ICA PSV 64 cm/sec RT Prox ICA EDV 22 cm/sec LT Prox ICA EDV 17 cm/sec RT Mid ICA PSV 66 cm/sec LT Mid ICA PSV 53 cm/sec RT Mid ICA EDV 19 cm/sec LT Mid ICA EDV 21 cm/sec RT Distal ICA PSV 45 cm/sec LT Distal ICA PSV 66 cm/sec RT Distal ICA EDV 19 cm/sec LT Distal ICA EDV 25 cm/sec RT ECA Prx PSV 61 cm/sec LT ECA Prx PSV 96 cm/sec RT ICA/CCA 1.40 ratio LT ICA/CCA 0.90 ratio Rt Vert PSV 34 cm/sec Lt Vert PSV 27 cm/sec FINDINGS: Rt Common Carotid Artery: Duplex imaging of the right common carotidartery is within normal limits without evidence of atherosclerotic disease. Rt Internal Carotid Artery: The plaque in the right internal carotidartery appears to be heterogeneous and smooth. Atherosclerotic changes of the right internalcarotid artery without hemodynamically significant Doppler findings. <50% stenosis. Divedeep. Rt External Carotid Artery: Patent right external carotid artery withevidence of atherosclerotic disease present. Rt Vertebral Artery: The right vertebral artery is patent with antegradeflow. Lt Common Carotid Artery: Duplex imaging of the left common carotid arteryis within normal limits without evidence of atherosclerotic disease. Lt Internal Carotid Artery: The plaque in the left internal carotid arteryappears to be heterogeneous and smooth. Atherosclerotic changes of the left internalcarotid artery without hemodynamically significant Doppler findings. <50% stenosis. Lt External Carotid Artery: The left external carotid artery is patentwithout evidence of atherosclerotic plaque. Lt Vertebral Artery: The left vertebral artery is patent with antegradeflow. CONCLUSIONS: 1. The right internal carotid artery disease is consistent with a lessthan 50% stenosis. 2. The left internal carotid artery disease is consistent with a less than50% stenosis. 3. Normal, antegrade flow is noted in bilateral vertebral arteries. ATTESTATION: I have reviewed and interpreted the pertinent images and measurements ofthis study. I attest to the conclusions in the final report that is provided above. Electronically Signed By: Carlos Arias MD 08/27/2025 11:21:[address] [employer] us Carlos Arias MD IMG US PROCEDURES Final Re sult * US Duplex Scan of Aorta; Inferior Vena Cava, Iliac, Complete (08/26/2025 2:[address] [employer]) Anatomical Region Laterality Modality Vascular Ultrasound 08/26/2025 2:[address] [employer] Narrative 08/27/2025 12:[address] [employer] Abdominal Aortic Duplex Ultrasound Report Patient Name: ZULLY ROTH F : 1960 Study Date: 08/26/2025 2:08:51 PM Sex: F Sales Floor Team Leader: TANAI HEARN Ref Provider: CARLOS ARIAS Quality: Adequate Order Provider: CARLOS ARIAS PROCEDURES: Arterial Report: Duplex ultrasound imaging of the abdominal aorta. INDICATIONS: Z48.812 Encounter for surgical aftercare following surgery on the circulatory system. HISTORY: RT GLORY STENT04/27/24 . RT ILIOFEMORAL ENDART 01/02/25. COMPARISONS: The previous exam was completed on 05/14/24. MEASUREMENTS: Vessel Velocities Aorta Prx PSV 72.55 cm/sec Aorta Mid PSV 64.24 cm/sec Rt Com Iliac Prx PSV 209.10 cm/sec Rt Ext Iliac Prx PSV 94.66 cm/sec STENTS: Vessel Velocity Location RT GLORY Stent [place]olski Inflow PSV 74.00 cm/sec Stent Prx PSV 95.00 cm/sec Stent Mid PSV 106.00 cm/sec Stent Dst PSV 209.00 cm/sec Stent [place]ki Outflow PSV 95.00 cm/sec FINDINGS: Study Quality: Adequate. Stent: Stent is located in the RT GLORY. Patent stent without evidence of restenosis. Difficult clearly visualizing AOILIAC due to overlying bowel gas. CONCLUSIONS: 1. Right iliac stent is patent. ATTESTATION: I have reviewed and interpreted the pertinent images and measurements of this study. I attest to the conclusions in the final report that is provided above. Electronically Signed By: Carlos Arias MD 08/27/2025 12:30:[address] [employer] Procedure Note Carlos Arias MD - 08/27/2025 Abdominal Aortic Duplex Ultrasound Report Patient Name: ZULLY ROTH F : 1960 Study Date: 08/26/2025 2:08:51 PM Sex: F Sales Floor Team Leader: TANIA HEARN Ref Provider: CARLOS ARIAS Quality: Adequate Order Provider: CARLOS ARIAS PROCEDURES: Arterial Report: Duplex ultrasound imaging of the abdominal aorta. INDICATIONS: Z48.812 Encounter for surgical aftercare following surgery on thecirculatory system. HISTORY: RT GLORY STENT04/27/24 . RT ILIOFEMORAL ENDART 01/02/25. COMPARISONS: The previous exam was completed on 05/14/24. MEASUREMENTS: Vessel Velocities Aorta Prx PSV 72.55 cm/sec Aorta Mid PSV 64.24 cm/sec Rt Com Iliac Prx PSV 209.10 cm/sec Rt Ext Iliac Prx PSV 94.66 cm/sec STENTS: Vessel Velocity Location RT GLORY Stent [place]ki Inflow PSV 74.00 cm/sec Stent Prx PSV 95.00 cm/sec Stent Mid PSV 106.00 cm/sec Stent Dst PSV 209.00 cm/sec Stent [place]olski Outflow PSV 95.00 cm/sec FINDINGS: Study Quality: Adequate. Stent: Stent is located in the RT GLORY. Patent stent without evidence ofrestenosis. Difficult clearly visualizing AOILIAC due to overlying bowel gas. CONCLUSIONS: 1. Right iliac stent is patent. ATTESTATION: I have reviewed and interpreted the pertinent images and measurements ofthis study. I attest to the conclusions in the final report that is provided above. Electronically Signed By: Carlos Arias MD 08/27/2025 12:30:[address] [employer] us Carlos Arias MD IMG US PROCEDURES Final Re sult * POCT glucose (08/20/2025 6:[address] [employer]) Glucose, POC 90 70 - 199 mg/dL Blood 08/20/2025 6:[address] [employer] 08/20/2025 6:[address] [employer] Manuel Bennett MD LAB POCT ORDERABLES - DEVIC E Final Result [facility] Department [place] [address] * Surgical pathology (08/20/2025 4:[address] [employer]) Tissue (Soft Tissue Mass - Simple Excision) 08/20/2025 5:[address] [employer] Tissue specimen (specimen) (Soft Tissue Mass - Simple Excision) 08/20/2025 5:[address] [employer] Tissue specimen (specimen) (Soft Tissue Mass - Simple Excision) 08/20/2025 6:[address] [employer] Narrative PATHOLOGY [facility] - 08/27/2025 2:[address] [employer] EPIC results best viewed via link to PDF [facility] [place] [address] Note to Patients: This report may contain a detailed description of human tissue sent by a health care provider to the laboratory for pathologic evaluation. The content of this report is essential for diagnosis and may provide important critical findings. This information may be unfamiliar to patients to review without a medical professional present. It is advised that the patient review this report in the presence of a health care provider who can answer questions and explain the details. SURGICAL PATHOLOGY REPORT FINAL Patient Name: ZULLY ROTH Gender: F : 1960 (Age: 65) Address: [address] [place] [address] Hospital #: [id number] Taken:08/20/2025 Received:08/20/2025 Reported: 08/27/2025 Patient Type: [facility] Service: Gynecology Location: [facility] OR POD1 Physician(s): Manuel Bennett M.D. Dr Claude Bauer MD Diagnosis: A. Mesh, labeled excised prolapse vaginal mesh, removal - Consistent with vaginal mesh (gross only diagnosis) B. Vulva, 12 o'clock, excision - Invasive squamous cell carcinoma, keratinizing - Depth of invasion = 1.5 mm - Longitudinal size = 4 mm - Positive at 5-6 o'clock margin - Negative for lymphovascular space invasion - High-grade squamous intraepithelial lesion (HSIL, VIN3) -HSIL extends to 3 o'clock and 12 o'clock margin, and to deep margin at 6 o'clock - See comment and synoptic C. Vulva, superior margin, excision - Skin with no evidence of dysplasia or malignancy D. Vulva, inferior margin at 6 o'clock, excision - Skin with no evidence of dysplasia or malignancy [facility]/08/27/2025 10:55 By this signature, I attest that the above diagnosis is based upon my personal examination of the slides(and/or other material indicated in the diagnosis). Hannah Richey MD PhD Report Electronically Reviewed and Signed Out By Hannah Richey MD PhD 08/27/2025 14:15:27 Microscopic Description and Comment: This case was internally reviewed. The squamous cell carcinoma extends to the 5- 6 o'clock margin on the main specimen. It is unclear if this area corresponds to the new inferior margin at 6 o'clock. The synoptic is completed based on the main specimen only. Clinical correlation is required. Theodore Barreto M.D. 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 Operative procedure: Excision vaginal mesh, cystoscopy, wide local excision-vulva. Specimen(s) Received: A: Excised prolapes vaginal mesh B: Wide local excision at 12 oclock C: Addtional superior margin D: Additional inferior margin at 6 oclock Gross Description: Received in four formalin jars labeled with the patient's identifiers. A. Labeled excised prolapse vaginal mesh are two portions of roughened galvez-king tissue (2.0 x 1.5 x 0.7 cm and 2.5 x 1.7 x 0.6 cm) with embedded mesh-like material. A digital photograph is taken and the specimen is submitted for gross examination only. Jar 1. B. Labeled wide local excision at 12 o'clock is an irregular, oriented portion of tissue measuring 4.8 x 3.8 cm and excised to a depth of 1.4 cm. A suture is placed in the approximate 12 o'clock position. The specimen is inked as follows: 9-3 o'clock, black and 3-9 o'clock, blue. The skin surface is galvez-king, hair bearing, and diffusely nodular. The nodular area is pale white-galvez and measures 3.2 x 3.2 cm and abuts the peripheral skin and soft tissue resection margin at the approximate 12 o'clock, 1 o'clock, and 6 o'clock margins. The tips are shaved and the specimen is sectioned from 3-9 o'clock in 14 slices reveal galvez-white rubbery cut surfaces with no focal lesions grossly identified. Digital photographs are taken and the specimen is submitted entirely as follows: B1 3 o'clock tip, true margin embedded down B2 9 o'clock tip, true margin embedded down B3-B8 Remaining specimen submitted sequentially from 3-9 o'clock (see map) Jar 0. C. Labeled additional superior margin is an unoriented portion of skin measuring 1.6 x 0.6 cm and excised to a depth of 0.6 cm (inked black). The skin surface is galvez-king and wrinkled with no focal lesions grossly identified. The specimen is serially sectioned to reveal galvez-white rubbery cut surfaces with no focal lesions grossly identified. The specimen is submitted entirely as follows: C1 Opposing tips, true margin embedded down C2 Remaining skin Jar 0. D. Labeled additional inferior margin at 6 o'clock is an unoriented portion of skin measuring 0.8 x 0.8 cm and excised to a depth of 0.4 cm (inked black). The skin surface is galvez-king and wrinkled with no focal lesions grossly identified. The specimen is serially sectioned to reveal galvez-white rubbery cut surfaces with no focal lesions grossly identified. The specimen is submitted entirely as follows: D1 Opposing tips, true margin embedded down D2 Remaining skin (bisected) Jar 0. slbjh/08/23/2025 13:58 PA(s): AMOR Emerson CANCER CASE SUMMARY FOR CARCINOMAS OF THE VULVA Procedure: Wide excision Tumor site: Not specified Tumor size: Greatest dimension (centimeters): 0.4 cm Depth of Invasion: Depth of invasion: 1.5 mm Tumor focality: Unifocal Histologic type: Squamous cell carcinoma, keratinizing Margins: Peripheral Margin: Involved by invasive carcinoma Location(s): 5-6 oclock Peripheral Margin: Involved by high-grade squamous intraepithelial lesion (BETTE 2-3) Location(s): 3 and 12 oclock Deep Margin: Uninvolved by invasive carcinoma Deep Margin: Involved by high-grade squamous intraepithelial lesion (BETTE 2-3) Deep Margin: Location(s): 6 oclock Lymphovascular Invasion: Not identified Regional Lymph Nodes: No lymph nodes submitted or found Lymph Node Examination Pathologic Stage Classification (pTNM, AJCC 8th Edition): Primary tumor (pT): pT1b: Lesions more than 2 cm, or any size with stromal invasion more than 1.0 mm, confined to the vulva and/or perineum Regional lymph nodes (pN): Category: pNX: Regional lymph nodes cannot be assessed FIGO Stage (2015 FIGO Cancer Report): IB: Lesions >2 cm in size or with stromal invasion >1.0 mm, confined to the vulva and/or perineum, with negative nodes Additional pathologic findings: High grade squamous intraepithelial lesion (BETTE 2-3) The pathologic stage assigned here should be regarded as provisional, and may change after integration of clinical data not provided with this specimen. CAP VERSION: Vulva 4.0.0.1 By this signature, I attest that the above diagnosis is based upon my personal examination of the slides(and/or other material). Addenda/Procedures The performance characteristics of some immunohistochemical stains, fluorescence in-situ hybridization tests and immunophenotyping by flow cytometry cited in this report (if any) were determined by the Surgical Pathology and Flow Cytometry Departments at [facility] as part of an ongoing quality assurance monitor final program and in compliance with federally mandated regulations drawn from the Clinical Laboratory Improvement Act of 1988 (CLIA '88). Some of these tests rely on the use of analyte specific reagents and are subject to specific labeling requirements by the US Food and Drug Administration. Such diagnostic tests may only be performed in a facility that is certified by the Department of Health and Human Services as a high complexity laboratory under CLIA '88. The FDA has determined that such clearance or approval is not necessary. This test is used for clinical purposes. It should not be regarded as investigational or for research. Nevertheless, federal rules concerning the medical use of analyte specific reagents require that the following disclaimer be attached to the report: This test was developed and its performance characteristics determined by the Surgical Pathology and Flow Cytometry Departments of [facility]. It has not been cleared or approved by the U. S. Food and Drug Administration. IMAGES AND SCANNED DOCUMENTS, IF INCLUDED, ONLY VIEWABLE IN PDF VERSION OF REPORT us Manuel Bennett MD LAB PATHOLOGY ORDERABLES Fi nal Result PATHOLOGY [facility] 3rd Floor [place], [place] [phone] * POCT glucose (08/20/2025 4:[address] [employer] [address]) Glucose, POC 96 70 - 199 mg/dL Blood 08/20/2025 4:[address] [employer] 08/20/2025 4:[address] [employer] Manuel Bennett MD LAB POCT ORDERABLES - DEVIC E Final Result Performing Organization Address City/[facility]/ZIP Co de Phone Number [facility] Department [place] [address] * IA AN ELECTIVE ENDOTRACHEAL AIRWAY, IA AN PROCEDURE PLACEHOLDER (08/20/2025 4:[address] [employer]) Narrative Hoang Browne MD - 08/20/2025 4:[address] [employer] [address] Hoang Browne MD 08/20/2025 4:13 PM Airway Patient location: OR Urgency: elective Date/time: 08/20/2025 4:12 PM Indications for airway management: anesthesia and airway protection Difficult airway: no Staff: Placed by: Anesthesiologist: Hoang Browne MD Emergent airway documentation: Risks and benefits discussed: yes Consent obtained: yes Consent given by: patient Airway prep: Preoxygenated: yes Mask difficulty assessment: 1 - vent by mask Spontaneous ventilation during airway: absent Sedation level during airway: GA Final airway details: Final airway type: endotracheal airway Tube type: ETT Cuffed: yes Technique used for successful ETT placement: direct laryngoscopy Insertion site: oral Blade type: Sola Blade size: 3 Cormack-Lehane (direct): grade I - full view of glottis Cuff volume: 8 mL Cuff inflated with: air ETT to lips: 22 cm Placement verified by: auscultation and CO2 detection Airway secured with: silk tape Number of attempts: 1 Hoang Browne MD ANESTHESIA ORDERABLES Fi nal Result * POCT glucose (08/20/2025 2:[address] [employer] [address]) Pathologist [facility] Glucose, POC 102 70 - 199 mg/dL Blood 08/20/2025 2:[address] [employer] [address] 08/20/2025 2:[address] [employer] Manuel Bennett MD LAB POCT ORDERABLES - DEVIC E Final Result Performing Organization Address [facility] de Phone Number [facility] Department [place] [address] * TYPE AND SCREEN 14 DAY (07/30/2025 9:10 AM CDT) [facility] ABO Rh A Positive Dana, indirect Negative [facility] Blood 07/30/2025 9:10 AM CDT 07/30/2025 10:00 AM CDT Narrative [facility] - 07/30/2025 11:12 AM CDT Has the patient had Daratumumab or Isatuximab in the past 6 months?->No Is this test being ordered in advance for a procedure?->Yes Expected date of procedure:->09/22/25 Has the patient been transfused in the past 3 months?->No Has the patient been in the past 3 months?->No Manuel Bennett MD LAB BLOOD BANK TEST ORDERAB LES Final Result Performing Organization Address [facility] de Phone Number [facility] Department [place] [address] * eGFR (07/30/2025 9:10 AM CDT) [facility] eGFR 76 >=60 mL/min/1. 73 m2 Comment: Interpretive Data [...] interpretive data was last reviewed 2021. Blood 07/30/2025 9:10 AM CDT 07/30/2025 9:55 AM CDT us Tiera Arevalo [employer] OPERATOR LAB BLOOD ORDERABLES Martita wright Result [facility] Department [place] [address] * Differential, auto (07/30/2025 9:10 AM CDT) Neutrophil abs 5.26 1.50 - 6.50 K/cumm Imm gran abs 0.03 0.00 - 0.10 K/cumm [facility] Lymphocyte abs 1.91 0.80 - 3.30 K/cumm [facility] Monocyte abs 0.58 0.20 - 0.80 K/cumm [facility] Eosinophil abs 0.17 0.00 - 0.50 K/cumm [facility] Basophil abs 0.04 0.00 - 0.10 K/cumm [facility] Neutrophil pct 65.8 % [facility] Comment: Interpretive Data Percent cell count reference ranges are not reported, since discordance with absolute values may lead to misinterpretation of CBC data. Current Interpretive Data was last revised on 2018. Imm gran pct 0.4 % [facility] Comment: Interpretive Data Percent cell count reference ranges are not reported, since discordance with absolute values may lead to misinterpretation of CBC data. Current Interpretive Data was last revised on 2018. Lymphocyte pct 23.9 % [facility] Comment: Interpretive Data Percent cell count reference ranges are not reported, since discordance with absolute values may lead to misinterpretation of CBC data. Current Interpretive Data was last revised on 2018. Monocyte pct 7.3 % [facility] Comment: Interpretive Data Percent cell count reference ranges are not reported, since discordance with absolute values may lead to misinterpretation of CBC data. Current Interpretive Data was last revised on 2018. Eosinophil pct 2.1 % [facility] Comment: Interpretive Data Percent cell count reference ranges are not reported, since discordance with absolute values may lead to misinterpretation of CBC data. Current Interpretive Data was last revised on 2018. Basophil pct 0.5 % [facility] Comment: Interpretive Data Percent cell count reference ranges are not reported, since discordance with absolute values may lead to misinterpretation of CBC data. Current Interpretive Data was last revised on 2018. Blood 07/30/2025 9:10 AM CDT 07/30/2025 9:55 AM CDT us Manuel Bennett MD LAB BLOOD ORDERABLES Final Result [facility] Department [place] [address] * (ABNORMAL) Urinalysis reflex to microscopic (07/30/2025 9:10 AM CDT) Color, ur Straw Yellow Clarity, ur Clear Clear [facility] Specific gravity, ur 1.013 1.003 - 1.030 [facility] pH, urine 6.0 [facility] Comment: Interpretive Data U rine pH is affected by diet, medications, systemic acid-base disturbances, and renal tubular function. pH may affect urinary stone formation. For example, urine pH below 6.0 may help reduce the tendency for calcium phosphate stones and pH greater than 6.0 may reduce the tendency for uric acid stone formation. Source: [place] [employer] Current Interpretive Data was last revised on 2017 Protein, ur ql Negative Negative [facility] Glucose, ur ql 4+(A) Negative [facility] Ketones, ur Negative Negative [facility] Bilirubin, ur Negative Negative [facility] Blood, ur Negative Negative [facility] Urobilinogen, ur <2.0 <2.0 mg/dL [facility] Nitrite, ur Negative Negative [facility] Leukocyte esterase, ur Negative Negative [facility] UA reflex comment Reflex conditions for microscopic UA not met. [facility] Urine 07/30/2025 9:10 AM CDT 07/30/2025 9:50 AM CDT us Tiera Arevalo [employer] OPERATOR LAB URINE ORDERABLES Martita l Result [facility] Department [place] [address] * (ABNORMAL) CBC with auto differential (07/30/2025 9:10 AM CDT) WBC 7.99 3.80 - 9.90 K/cumm Hgb 15.2 11.9 - 15.5 g/dL [facility] Hct 45.6(H) 35.6 - 45.5 % [facility] Plt 238 150 - 400 K/cumm [facility] MPV 10.4 9.1 - 12.3 fL [facility] RBC 5.32(H) 3.90 - 5.20 M/cumm [facility] MCV 85.7 81.3 - 96.4 fL [facility] MCH 28.6 27.1 - 33.3 pg [facility] MCHC 33.3 32.3 - 35.7 g/dL [facility] RDW CV 14.3 11.1 - 14.9 % [facility] RDW SD 44.5 35.7 - 48.1 fL [facility] NRBC abs 0.00 0.00 - 0.01 K/cumm [facility] Blood 07/30/2025 9:10 AM CDT 07/30/2025 9:55 AM CDT us Manuel Bennett MD LAB BLOOD ORDERABLES Final Result [facility] Department [place] [address] * (ABNORMAL) Basic metabolic panel (07/30/2025 9:10 AM CDT) [facility] Sodium 138 135 - 145 mmol/L Potassium, pl 3.8 3.3 - 4.9 mmol/L [facility] Chloride 104 97 - 110 mmol/L [facility] CO2 27 22 - 32 mmol/L [facility] Anion gap 7 2 - 15 mmol/L [facility] BUN 31(H) 6 - 25 mg/dL [facility] Creatinine 0.86 0.60 - 1.10 mg/dL [facility] Glucose 119 70 - 199 mg/dL [facility] Comment: Interpretive Data Fasting glucose >/= 126 mg/dl is diagnostic for diabetes. Fasting is defined as no caloric intake for at least 8 hours. Fasting glucose between 100 mg/dl to 125 mg/dl is diagnostic of prediabetes. In a patient with classic symptoms of hyperglycemia or hyperglycemic crisis, a random glucose >/= 200 mg/dl is diagnostic for diabetes. In the absence of unequivocal hyperglycemia, results should be confirmed by repeat testing. The classification and Diagnosis of Diabetes Diabetes Care 2021; 46: S19-S40. Current interpretive data was last revised 2022. Calcium 9.8 8.5 - 10.3 mg/dL [facility] Blood 07/30/2025 9:10 AM CDT 07/30/2025 9:55 AM CDT Tiera Arevalo [employer] OPERATOR LAB BLOOD ORDERABLES Martita l Result [facility] Department [place] [address] * (ABNORMAL) POCT hemoglobin A1c (07/30/2025 8:22 AM CDT) [facility] Hgb A1C, POC 7.1(H) 4.0 - 5.6 % Est Average Gluc POC 157 mg/dL [facility] Comment: The ADA recommends reporting an estimated Average Glucose (eAG) with all Hemoglobin A1c results using the equation derived from a study of 507 normal and diabetic adults. Minority populations were underrepresented and children were not included. (Diabetes Care 31:0317-7825, 2008). The eAG is not equivalent to a fasting glucose. Blood 07/30/2025 8:22 AM CDT 07/30/2025 8:22 AM CDT Tyrell Bauer MD POINT OF CARE TEST ORDERABLES Final Result [facility] Department [place] [address] * Surgical pathology (07/05/2025 11:02 AM CDT) Tissue (Vulva / Labia Biopsy) 07/05/2025 11:02 AM CDT 07/05/2025 1:13 PM CDT Narrative PATHOLOGY [facility] - 07/08/2025 3:11 PM CDT EPIC results best viewed via link to PDF [facility] Rae Santoro Laboratory [place] [address] Note to Patients: This report may contain a detailed description of human tissue sent by a health care provider to the laboratory for pathologic evaluation. The content of this report is essential for diagnosis and may provide important critical findings. This information may be unfamiliar to patients to review without a medical professional present. It is advised that the patient review this report in the presence of a health care provider who can answer questions and explain the details. SURGICAL PATHOLOGY REPORT FINAL Patient Name: ZULLY ROTH Gender: F : 1960 (Age: 65) Address: [address] [place], [place] [phone] Hospital #: [id number] Taken:07/05/2025 Received:07/05/2025 Reported: 07/08/2025 Patient Type: [facility] SPECIMEN Service: Laboratory Location: Physician(s): Manuel Bennett M.D. Diagnosis: Vulva, 7 o'clock, biopsy - High-grade squamous intraepithelial lesion (HSIL, BETTE 3), with focal irregularity of the basement membrane (see comment) - HSIL/BETTE 3 involves peripheral tissue edges fece/07/06/2025 09:38 By this signature, I attest that the above diagnosis is based upon my personal examination of the slides(and/or other material indicated in the diagnosis). Negin Gary M.D. Report Electronically Reviewed and Signed Out By Negin Gary M.D. 07/08/2025 15:11:35 Diagnosis Comment The HSIL/CIN3 has an acanthotic appearance with overlying hyperkeratosis. There is a prominent lymphoplasmacytic inflammatory infiltrate at the interface of the HSIL/BETTE 3 with the underlying stroma. In some areas, the epithelial-stromal junction has mild irregularity of the basement membrane, which raised concern for, but is not yet diagnostic of, a very superficial minimally invasive component (less than 1 mm). A definitive assessment is limited by the biopsy sampling and tangential nature of the tissue sections. Multiple deeper H&E level sections were performed (x6 total). Clinical correlation and with final characterization on the resection specimen is recommended. Microscopic Description and Comment: Immunohistochemical stains (single antibody procedure with appropriate controls) were performed to further characterize the atypical cells. The cells show diffuse block-like positivity for p16 , Ki67 is increased to 90% and extends into the upper epithelial layers. p53 staining shows wild-type pattern. The morphologic features and immunophenotype are consistent with high-grade squamous intraepithelial lesion (BETTE 3)/HSIL. Luciano Duong M.D. History: The patient is a 65-year-old woman presenting with vulvar skin lesion. Operative procedure: Biopsy of vulva 7:00. Specimen(s) Received: A: Vulva, 7 o'clock Gross Description: Received in formalin, labeled with the patient s identifiers and vulva 7:00 and consists of one white-galvez fragment(s) of soft tissue measuring 0.5 cm in greatest dimension. Labeled A1. Jar 0. elsw/07/05/2025 14:11 PA(s): Hayley Wilkins By this signature, I attest that the above diagnosis is based upon my personal examination of the slides(and/or other material). Addenda/Procedures The performance characteristics of some immunohistochemical stains, fluorescence in-situ hybridization tests and immunophenotyping by flow cytometry cited in this report (if any) were determined by the Surgical Pathology and Flow Cytometry Departments at [facility] as part of an ongoing quality assurance monitor final program and in compliance with federally mandated regulations drawn from the Clinical Laboratory Improvement Act of 1988 (CLIA '88). Some of these tests rely on the use of analyte specific reagents and are subject to specific labeling requirements by the US Food and Drug Administration. Such diagnostic tests may only be performed in a facility that is certified by the Department of Health and Human Services as a high complexity laboratory under CLIA '88. The FDA has determined that such clearance or approval is not necessary. This test is used for clinical purposes. It should not be regarded as investigational or for research. Nevertheless, federal rules concerning the medical use of analyte specific reagents require that the following disclaimer be attached to the report: This test was developed and its performance characteristics determined by the Surgical Pathology and Flow Cytometry Departments of [facility]. It has not been cleared or approved by the U. S. Food and Drug Administration. IMAGES AND SCANNED DOCUMENTS, IF INCLUDED, ONLY VIEWABLE IN PDF VERSION OF REPORT us Manuel Bennett MD LAB PATHOLOGY ORDERABLES Fi nal Result PATHOLOGY [facility] 3rd Floor [place], [place] [phone] * (ABNORMAL) POCT urinalysis dipstick (07/05/2025 9:20 AM CDT) Color, Urine, POC Light Yellow Clarity, ur, POC Clear Clear Glucose, ur, POC 1+(A) Negative Bilirubin, ur, POC Negative Negative Ketones, ur, POC Negative Negative Specific [place], POC 1.010 1.003 - 1.030 Blood, ur, POC Negative Negative pH, ur, POC 7.0 5.0 - 8.0 Protein, ur, POC Negative Negative Urobilinogen, urine, POC 0.2 0.2 - 1.0 mg/dL Nitrite, ur, POC Negative Negative Leukocytes, ur, POC Negative Negative Lot Number [id number] Urine 07/05/2025 9:20 AM CDT Manuel Bennett MD POINT OF CARE TEST ORDERABL ES Final Result * Urodynamics (07/05/2025 9:19 AM CDT) Manuel Bennett MD PROCEDURE ORDERABLES Fin al Result * (ABNORMAL) POCT urinalysis (Clinitek) (06/21/2025 12:53 PM CDT) Color, ur, POC Yellow Yellow Clarity, UA, POC Clear Clear [facility] Glucose, ur, POC 3+(A) Negative [facility] Bilirubin, ur, POC Negative Negative [facility] Ketones, ur, POC Negative Negative [facility] Specific gravity, ur, POC 1.020 1.010 - 1.025 [facility] Blood, ur, POC Negative Negative [facility] pH, ur, POC 6.5 [facility] Comment: Interpretive Data Urine pH is affected by diet, medications, systemic acid-base disturbances, and renal tubular function. pH may affect urinary stone formation. For example, urine pH below 6.0 may help reduce the tendency for calcium phosphate stones and pH greater than 6.0 may reduce the tendency for uric acid stone formation. Source: [facility] [employer]. Last Revised Date: 10-17-2017 Protein, ur, POC Negative Negative [facility] Urobilinogen, ur, POC 0.2 mg/dL mg/dL [facility] Nitrites, ur, POC Negative Negative [facility] Leukocyte esterase, ur, POC Negative Negative [facility] Urine 06/21/2025 12:5 3 PM CDT 06/21/2025 12:53 PM CDT us Jeni Sanchez MD LAB POCT ORDER LESLIE - DEVICE Final Result [facility] Department [place] [address] * CT Lung Cancer Screening (09/11/2024 7:[address] [employer]) Anatomical Region Laterality Modality Chest N/A Computed Tomogra phy 09/15/2024 8:[address] [employer] Narrative 09/15/2024 9:[address] [employer] EXAM DESCRIPTION: CT LUNG CANCER SCREENING REASON [...] lymphadenopathy. Similar-appearing low-density nodular thickening of the bdek-xujdszo-plyc-right adrenal glands most suggestive of nodular hyperplasia. [...] Memo Keita M.D. NS T: Report ID: [id number] Reading Location: [place] [address] Sue Roland MD IMG [address] PROCEDURES Final Resul t * Albumin Creatinine Ratio, Urine (03/30/2024 1:49 PM CDT) Albumin Ur 12.5 mg/L Comment: Interpretive Data No reference range established. Current interpretive data was last revised 2019. Creatinine Ur 66.9 mg/dL [facility] Comment: Interpretive Data No reference range established. Current interpretive data was last revised 2019. Albumin Creatinine Ratio, Ur 19 1 - 29 mg/g [facility] Urine 03/30/2024 1:49 PM CDT 03/30/2024 8:18 PM CDT Katarzyna Swain MD LAB URINE ORDERABLE S Final Result [facility] [address] Department [place] [address] * (ABNORMAL) Lipid panel (03/30/2024 1:49 PM [...] on 2018. Triglycerides 182(H) <=149 mg/dL [facility] Comment: Interpretive Data Ages [...] Pediatrics 2011;128:S213 2. NCEP Expert Panel. Circulation 2003;110:227 Current Interpretive Data was last revised on [...] Pediatrics 2011;128:S213 2. NCEP Expert Panel. Circulation 2003;110:227 Current Interpretive Data was last revised on [...] revised on 2018. Chol/HDL ratio 4 [facility] Blood 03/30/2024 1:49 PM CDT 03/30/2024 8:18 PM CDT us Katarzyna Swain MD LAB BLOOD ORDERABLE S Final Result [facility] [address] Department [place] [address] * DIABETES EYE EXAM (03/18/2024 8:16 AM CDT) us Historical Provider HEALTH MAINTENANCE Edited Result - Final * COLONOSCOPY (03/18/2018 10:40 AM CDT) Anatomical Region Laterality Modality Other Narrative Procedure Note Basim Forde MD - 03/18/2018 10:40 AM CDT [facility] Patient Name: Zully Roth Procedure Date: 03/18/2018 10:40 AM Date of : 1960 Admit Type: Outpatient Age: 58 Gender: Female Attending MD: Basim Llanos M.D. Room: [facility] ENDOSCOPY ROOM 2 Note Status: Finalized Procedure: Colonoscopy Indications: This is the patient's first colonoscopy, Screeningfor colorectal malignant neoplasm Referring MD: Khushboo Hoffmann Providers: Basim Hankins M.D. Impression: - Non-thrombosed [...] scope was passed under direct vision.The Colonoscope [id number] was introducedthrough the anus and advanced to [...] Residual hemorrhoidal skin tags CPT copyright 2017 [employer]. All rights reserved. The codes documented in this report are preliminary and upon drawbridge operator reviewmay be revised to meet current compliance requirements. Recognized by the [place] [employer] for promoting quality in endoscopy Basim Hankins MD ENDOSCOPY PROCEDUR ES Final Result from Last 3 Months or Most Recently Relevant to Health Maintenance Insurance [facility] Advance Directives For more information, please contact: [phone] * Full Code (Latest Code Status on File) Date Activated Date Inactivated Comments 03/18/2018 9:11 AM 03/18/2018 1:51 PM Care Teams Funeral Service Licensee Relationship Specialty Start Date End Date Claude Philip MD PCP - General Emergency Medicine 07/02/23
--- OUTSIDE RECORDS SUMMARY | 2025-09-01 13:03 | XMS_ITS | Clinical Summary ---
Author Organization [facility] Address [address] [place] [address] Care Team Providers Care Dianetic Counselor Name Role Phone Claude Philip MD Primary Care Provider [phone] Source Comments [facility],non-owned Affiliates and Associated Physician Practices is amultiple site organization consisting of ambulatory clinics and hospital sitesin [place], [place], [place] and [place]. This disclosure is being madepursuant to the Care Everywhere program and may not contain all information available regarding this patient. Last updated 18.[facility] Allergies Active Allergy Reactions Criticality Noted Date Comments Iodine Anaphylaxis,Swelling ,U nknown High 10/24/2017 Throat swelling Shellfish-Derived Products Shortness of Breath High 10/08/2019 Medications * Be aware that medications may not be up to date on this document. Alwaysverify current medications with the patient. albuterol HFA (PROVENTIL;MERON TOLIN;PROAIR) 108 (90 Base) MCG/ACT inhaler INL 2 PFS PO Q 6 TO 8 H PRN 09/07/20 19 Active Blood Glucose Monitoring Suppl (FREESTYLE LITE) LZI U UTD 04/11/20 19 Active blood glucose test strip U UTD. 04/11/20 19 Active FREESTYLE LANCETS MISC USE UTD. 07/08/20 19 Active fluticasone propionate (FLONASE) 50 MCG/ACT nasal spray SHAKE LIQUID AND USE 1 SPRAY NASALLY EVERY DAY 03/15/20 21 Active Aspirin 81 MG CAPS Active carvedilol (Coreg) 25 MG tablet Take 1 (one) tablet by mouth 2 times daily 11/01/19 24 Active Jardiance 10 MG tablet 12/23/19 24 Active vitamin D, ergocalciferol , (Drisdol) 1.25 MG (10267 UT) capsule Take 1 (one) capsule by mouth every 7 days 11/10/19 24 Active Kerendia 20 MG tablet Take 1 (one) tablet by mouth once daily 12/23/19 24 Active losartan (Cozaar) 100 MG tablet Take 1 (one) tablet by mouth once daily 11/30/19 24 Active rivaroxaban (Xarelto) 2.5 MG TABS tablet Xarelto 2.5 mg tablet 12/04/19 24 Active tiotropium (Spiriva) 18 MCG inhalation capsule Inhale 1 (one) capsule by mouth 4 times daily Active acetaminophen (Tylenol) 325 MG tablet Take 2 (two) tablets by mouth every 6 hours Maximum allowable Acetaminophen amount = 4 Grams (4000 mg) / 24 hours. 01/06/20 24 Active Additional Information Patient not taking.Reported on 12/23/2024 Dulaglutide (TRULICITY SC) Activ e diphenhydrAMIN E (Benadryl) 50 MG capsuleIndicat ions:Contrast media allergy Take 1 tablet PO 1 hour prior to procedure/testing 1 capsule 05/26/20 Active Additional Information Patient not taking.Reported on 12/23/2024 diphenhydrAMIN E (Benadryl) 25 MG capsuleIndicat ions:Radiograp hic dye allergy status TAKE 2 CAPSULES BY MOUTH EVERY HOUR PRIOR TO PROCEDURE/TESTING 2 capsule 05/21/20 24 Active Additional Information Patient not taking.Reported on 12/23/2024 amLODIPine (Norvasc) 5 MG tablet Take 1 (one) tablet by mouth once daily Active pantoprazole EC (Protonix) 40 MG tablet Take 1 (one) tablet by mouth once daily 05/11/20 Active predniSONE (Deltasone) 50 MG tablet TAKE 1 TABLET BY MOUTH 13 HOURS BEFORE PROCEDURE. REPEAT AT 7 HOURS, AND 1 HOUR BEFORE 3 tablet 07/17/20 Active Additional Information Patient not taking.Reported on 12/23/2024 montelukast (Singulair) 10 MG tablet Take 1 (one) tablet by mouth at bedtime 09/21/20 24 025 Active amLODIPine (Norvasc) 10 MG tablet Take 1 (one) tablet by mouth once daily 30 tablet 12/24/19 25 Active ezetimibe (Zetia) 10 MG tablet Take 1 (one) tablet by mouth once daily 30 tablet 03/11/20 25 Active docusate sodium (Colace) 100 MG capsule Take 1 (one) capsule by mouth 2 times daily 30 capsule 1 01/06/20 24 024 Discontin ued(No Pharm No AVS) oxyCODONE, immediate release, (Roxicodone) 5 MG tabletIndicati ons:Acute Pain Take 0.5 (one-half) tablet by mouth every 4 hours as needed Reasons: Acute Pain 8 tablet 01/06/20 24 024 Discontin ued(No Pharm No AVS) Active Problems Problem Noted Date Diagnosed Date Peripheral vascular disease 01/03/2024 EIC (epidermal inclusion cyst) 03/09/2022 Other seborrheic keratosis 03/09/2022 Lentigines 03/09/2022 Multiple benign melanocytic nevi of upper extremity, lower extremity, and trunk 03/09/2022 Skin problem 10/20/2019 Immunizations Immunization Administration Dates Next Due INFLUENZA VACCINE 12/13/2021 Family History Medical History Relation Name Comments CAD (Coronary Artery Disease) Father CAD (Coronary Artery Disease) Mother Cancer - Lung Mother Relation Name Status Comments Father Mother Social History Tobacco Use Types Packs/Day Years Used Date Smoking Tobacco: Former Cigarettes 0.5 Q uit: 10/07/2023 Smokeless Tobacco: Never Tobacco Cessation:Counseling Given: Not Answered Alcohol Use Standard Drinks/Week Comments Never 0 (1 standard drink = 0.6 oz pur e alcohol) AUDIT-C Answer Date Recorded Q1: How often do you have a drink containing alcohol? Never 04/27/2024 Q2: How many drinks containi ng alcohol do you have on a typical day when you are drinking? Patient does not drink Q3: How often do you have si x or more drinks on one occasion? Never 04/27/2024 Comments No Sex and Gender Information Value Date Recorded Sex Assigned at Not on file Legal Sex Female 10:34 AM CDT Gender Identity Not on file Sexual Orientation Not on file Last Filed Vital Signs Vital Sign Reading Time Taken Comments Blood Pressure 214/114 12/23/2024 4:15 PM CDT Pulse 75 12/23/2024 3:36 PM CDT Temperature 36.8 C (98.2 F) 12/23/2024 10:52 AM CDT Respiratory Rate 18 12/23/2024 10:52 AM CDT Oxygen Saturation 94% 12/23/2024 4:15 PM CDT Inhaled Oxygen Concentration 21% 07/20/2024 1 2:10 PM CDT Weight 83.9 kg (185 lb) 12/23/2024 10:52 AM CDT Height 165.1 cm (5' 5) 12/23/2024 10:52 AM CDT Body Mass Index 30.79 12/23/2024 10:52 AM CDT Plan of Treatment Health Maintenance Due Date Last Done Comments COLOGUARD (AGES 45-75) - COLON CA SCREENING 1960 COLON MONITORING 1960 COLONOSCOPY - COLON CA SCREENING 1962 CT COLONOGRAPHY - COLON CA SCREENING 1960 Colorectal Cancer Screening 1960 FIT - COLON CA SCREENING 1960 FLEX SIG - COLON CA SCREENING 1960 LIPID TESTING 1960 HIV SCREENING 1977 HEPATITIS C SCREENING 02/27/1980 DTAP/TDAP/TD VACCINES (1 - Tdap) 1981 PNEUMOCOCCAL VACCINE 50+ (1 of 1 - PCV) 2012 Respiratory Syncytial Virus (RSV) Vaccine Pt: or over 60 yrs (1 - Risk 50-74 years 1-dose series) 2012 ZOSTER VACCINE (1 of 2) 2012 MAMMOGRAM 01/14/2024 01/13/2022, 01/13/2022 DEPRESSION SCREENING 10/07/2024 COVID-19 VACCINE (1 - 2024- season) 2025 INFLUENZA VACCINE (#1) 2025 2, 12/13/2021, 06/26/2019 SCREENING FOR DIABETES 12/24/2027 5, 07/20/2024, 07/20/2024, Additional history exists HEPATITIS B VACCINE Aged Out No longe r eligible based on patient's age to complete this topic HIB VACCINE Aged Out No longer eligi ble based on patient's age to complete this topic HPV VACCINE Aged Out No longer eligi ble based on patient's age to complete this topic MENINGOCOCCAL (Group B) VACCINE SHARED DECISION-MAKING Aged Out No longer eligible based on patient's age to complete this topic MENINGOCOCCAL GROUPS A/C/Y/W VACCINE Aged Out No longer eligible based on patient's age to complete this topic Medical Devices Implanted Type Area Life Consultant Device Identifier Shelf Expiration Date Model / Serial / Lot Graft Vasc 6mm 50cm 40cm Hep Propaten - [id number] Implanted:Qty: 1 on 01/03/2024 by Celena Aguilar MD at [facility] Right: Arterial [employer] 05/21/2027 [id number] / [id number] / Procedures Procedure Name Priority Date/Time Associated Diagnosis Comments BASIC METABOLIC PANEL (CALCIUM TOTAL) STAT 12/23/2024 12:45 PM CDT from Last 3 Months or Most Recently Relevant to Health Maintenance Results * (ABNORMAL) BASIC METABOLIC PANEL (CALCIUM TOTAL) (12/23/2024 12:45 PM CDT) BUN 22 7 - 26 mg/dL 12/23/2024 1:38 PM [facility] Creatinine 0.63 0.56 - 0.96 mg/dL 12/23/2024 1:38 PM [facility] Sodium 141 136 - 145 mmol/L 12/23/2024 1:38 PM [facility] Potassium 4.0 3.5 - 4.5 mmol/L 12/23/2024 1:38 PM [facility] Chloride 109(H) 98 - 107 mmol/L 12/23/2024 1:38 PM [facility] CO2 23 22 - 29 mmol/L 12/23/2024 1:38 PM [facility] Glucose 103(H) 70 - 99 mg/dL 12/23/2024 1:38 PM [facility] Calcium 9.7 8.4 - 10.2 mg/dL 12/23/2024 1:38 PM [facility] Anion Gap 9 6 - 16 12/23/2024 1:38 PM CDT [facility] BUN/Creatinine Ratio 35(H) 7 - 23 12/23/2024 1:38 PM CDT [facility] Osmolality Calculated 296(H) 275 - 295 mOsm/kg 12/23/2024 1:38 PM CDT [facility] eGFR by CKD-EPI >90 >=90 mL/min/1.7 3 m2 12/23/2024 1:38 PM CDT [facility] Blood BLOOD SPECIMEN / Unknown Venipuncture / Unknown 12/23/2024 12:45 PM CDT 12/23/2024 1:23 PM CDT Carlos Smart MD LAB - CHEMISTRY ORDERABLES Final Result Performing Organization Address City/State/[facility] Co de Phone Number [facility] [address] [place] [address], [facility] [phone] from Last 3 Months or Most Recently Relevant to Health Maintenance Insurance [facility] Advance Directives * Full Code (Latest Code Status on File) Date Activated Date Inactivated Comments 01/03/2024 3:32 PM 01/06/2024 4:31 PM Care Teams Dianetic Counselor Relationship Specialty Start Date End Date Claude Philip MD [address] [place] [id number] PCP - General Family Medicine 12/31/23
--- OUTSIDE RECORDS SUMMARY | 2025-09-01 13:03 | XMS_ITS | Encounter Summary ---
Author Organization [facility] Address [address] [place] [address] Phone Care Team Providers Care Rock Mason Name Role Phone Ernestnie Ag NP Primary Care Provider [phone] Alivia Keller NP Primary Care Provider [phone] No, Physician Primary Care Provider [phone] Danilo Dominguez MD Primary Care Provider Claude Philip MD Primary Care Provider [phone] Encounter Details Date Type Department Care Team (Late st Contact Info) Description 11/18/2017 Orders Only [facility] ProviderJozef MD [address] [place] [address] Social History Tobacco Use Types Packs/Day Years Used Date Smoking Tobacco: Every Day Smokeless Tobacco: Never Comments:10-11 cigs a day Comments No Sex and Gender Information Value Date Recorded Sex Assigned at Not on file Legal Sex Female 9:51 AM HIMS CLERK Gender Identity Female 01/31/2021 7:50 AM CDT Sexual Orientation Straight 01/31/2021 7: 50 AM CDT documented as of this encounter Functional Status * In the past year, patient experienced: Question Answer Date of Assessment Author One or more falls in the last year No 2017 9:42 AM HIMS CLERK Saloni Camacho MA * BP Location Answer Date of Assessment Author Right arm 11/18/2017 11:48 AM HIMS CLERK Saloni Camacho MA * BP Location Answer Date of Assessment Author Right arm 11/18/2017 11:48 AM HIMS CLERK Saloni Camacho MA documented as of this encounter Plan of Treatment Not on file documented as of this encounter Procedures Procedure Name Priority Date/Time Associated Diagnosis Comments DISCHARGE LABORATORY CUMULATIVE REPORT 11/18/2017 12:00 AM HIMS CLERK documented in this encounter Results * DISCHARGE LABORATORY CUMULATIVE REPORT (11/18/2017 12:00 AM HIMS CLERK) Narrative 11/18/2017 12:00 AM HIMS CLERK Ordered by an unspecified provider. us Historical Provider LAB BLOOD ORDERABLES Martita l Result documented in this encounter Visit Diagnoses Not on filedocumented in this encounter Care Teams Rock Mason Relationship Specialty Start Date End Date Ernestine Ag NP PCP - General Nurse Practitioner 11/18/17 02/15/19 Alivia Keller NP [address] [place] [id number] PCP - General Family Medicine 02/16/19 08/18/19 No, Physician PCP - General 08/19/19 03/15/20 Danilo Dominguez MD PCP - General Internal Medicine 03/16/20 07/01/23 Claude Philip MD PCP - General Emergency Medicine 07/02/23 documented as of this encounter
--- OUTSIDE RECORDS SUMMARY | 2025-09-01 13:03 | XMS_ITS ---
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 Less than 50% stenosis bilaterally. Continue aspirin statin therapy follow-up 1 year for carotid duplex and annual surveillance Assessment & Plan (07/04/2025 12:58 PM CDT): Asymptomatic. Positive bruit check carotid duplex. Patient with the appropriate risk factors. Peripheral arterial occlusive disease 07/04/2025 Assessment & Plan (08/26/2025 3:09 PM TEEN COUNSELOR): Right bypass graft occluded noted on duplex [...] femoral to popliteal artery bypass graft at [facility] in December of 2023. Moving her care to [facility]. We will check duplex follow up 1 [...] 05/04/2020 Assessment & Plan (08/26/2025 3:07 PM TEEN COUNSELOR): Stable controlled. Continue Lipitor Assessment & Plan (05/27/2025 5:04 PM CDT): With established peripheral vascular disease, Increase atorvastatin to 80 mg daily (high-intensity therapy). Orders: atorvastatin (LIPITOR) 80 mg tablet; Take 1 tablet (80 mg total) by mouth daily Assessment & Plan (09/21/2024 7:47 PM TEEN COUNSELOR): Chronic, stable Continue Statin therapy Assessment & Plan (06/24/2024 10:51 AM CDT): Chronic problem. Near goal on current Atorvastatin 20mg & Zetia 10mg daily. Last lipid panel: 03/30/24 LDL=77, EW=289. Assessment & Plan (04/05/2024 7:33 PM CDT): Continue current statin therapy Tolerating well Assessment & Plan (09/14/2021 12:31 PM TEEN COUNSELOR): Continue current statin therapy Tolerating well Assessment [...] management Assessment & Plan (09/14/2021 12:31 PM TEEN COUNSELOR): Chronic, stable On Gabapentin for symptomatic management Assessment & Plan (01/31/2021 9:55 PM CDT): Chronic, stable On Gabapentin for symptomatic management Assessment & Plan (05/04/2020 9:37 AM CDT): Chronic, stable On Gabapentin for symptomatic management COPD with acute exacerbation 10/13/2018 Assessment & Plan (10/13/2018 10:48 AM TEEN COUNSELOR): COPD is worsening. Continue current medications. Recommend going to Er ADI neb given in office Wheezing throughout Refer to Pulm Sleep disturbances 06/13/2018 Assessment & Plan (06/13/2018 12:59 PM CDT): Pt. Snores loudly Fatigue all the time Wakes up tired and not refreshed. Will have her see Dr. Javier Nation 06/13/2018 Anxiety 06/13/2018 Assessment & Plan (06/13/2018 1:00 PM CDT): Increased anxiety r/t to health and of father. Will increase Citalopram Pain of both hip joints 03/10/2018 Obesity (BMI 30-39.9) 03/10/2018 Assessment & Plan (10/13/2018 10:47 AM TEEN COUNSELOR): Obesity is unchanged. Discussed the patient's BMI. [...] greens, fat-free milk, cottage cheese, nuts like [id number], protein bars with 10-15 g of protein [...] greens, fat-free milk, cottage cheese, nuts like [id number]-dopfbyw-[id number], protein bars with 10-15 g of protein [...] greens, fat-free milk, cottage cheese, nuts like uldfous-rctcuqv-glxtupk, protein bars with 10-15 g of protein [...] (12/17/2017): Added automatically from request for surgery [id number] Screening mammogram, encounter for 12/09/2017 Hypertension associated with diabetes 11/18/2017 Assessment & Plan (08/26/2025 3:07 PM TEEN COUNSELOR): Stable and controlled. Continue amlodipine losartan carvedilol. Assessment & Plan (05/27/2025 5:04 PM CDT): Uncontrolled Hypertension with home BP 140-150 systolic. Continue carvedilol 25 mg BID. Continue losartan 100 mg daily. Start chlorthalidone 25 mg daily. Continue home BP monitoring. Orders: ECG 12 lead Assessment & Plan (09/21/2024 7:47 PM TEEN COUNSELOR): Chronic well controlled Continue carvedilol 25mg bid, losartan 100mg daily, amlodipine 5mg daily Assessment & Plan (06/24/2024 10:49 AM CDT): Chronic problem. Controlled on current carvedilol 25mg bid, losartan 100mg daily, amlodipine 5mg daily Assessment & Plan (09/14/2021 12:32 PM TEEN COUNSELOR): Chronic, improving control Continue current medication regimen [...] 140/90 Assessment & Plan (12/09/2017 4:22 PM TEEN COUNSELOR): Hypertension is unchanged. UNCONTROLLED Stop smoking. Blood [...] tab. Assessment & Plan (11/18/2017 1:24 PM TEEN COUNSELOR): Hypertension is unchanged. Stop smoking. Blood pressure [...] medication is on the $4 list at [facility] and she had to pay $27 for [...] 11/18/2017 Assessment & Plan (11/18/2017 12:30 PM TEEN COUNSELOR): Hem A1C 7.5 Will start on Metformin [...] given. Pt will need to se a in service educator once she gets insurance. Renal cysts, [...] 11/18/2017 Assessment & Plan (11/18/2017 12:31 PM TEEN COUNSELOR): Recent CT scan in October showed Diverticulosis without diverticulitis. Will continue to monitor. Pt. Has never had a colonoscopy and a referral was put in for her. Sleep disorder 11/18/2017 Assessment & Plan (10/13/2018 10:46 AM TEEN COUNSELOR): Had sleep study Will f/u with Dr. Herrera Assessment & Plan (11/18/2017 12:55 PM TEEN COUNSELOR): Pt has trouble going to sleep, staying [...] SmokefreeTXT or calling a quitline. Using the [facility] peggy for tips and inspiration to help [...] SmokefreeTXT or calling a quitline. Using the [facility] peggy for tips and inspiration to help [...] completely Assessment & Plan (12/09/2017 10:14 AM TEEN COUNSELOR): Quit Smoking https://smokefree.gov/ Nicotine replacement therapy (NRT) [...] SmokefreeTXT or calling a quitline. Using the [facility] peggy for tips and inspiration to help [...] MONEY Assessment & Plan (11/18/2017 12:45 PM TEEN COUNSELOR): Counseling provided. Pt. Wants to stop smoking. She smoked x 30 yrs then quit for 12 then started the last 2 years. She smokes 1/2 ppd now and c/o of chronic bronchitis Tobacco abuse counseling 11/18/2017 Assessment & Plan (10/13/2018 10:45 AM TEEN COUNSELOR): Still smoking average about 7/ day Smoking [...] SmokefreeTXT or calling a quitline. Using the [facility] peggy for tips and inspiration to help [...] ordered Assessment & Plan (11/18/2017 10:31 AM TEEN COUNSELOR): Quit Smoking https://smokefree.gov/ Nicotine replacement therapy (NRT) [...] SmokefreeTXT or calling a quitline. Using the [facility] peggy for tips and inspiration to help [...] 11/18/2017 Assessment & Plan (08/26/2025 3:08 PM TEEN COUNSELOR): Stable controlled. Continue diabetic diet, insulin, Trulicity Assessment & Plan (09/21/2024 7:48 PM TEEN COUNSELOR): Chronic, overall well controlled, Hemoglobin A1c 6.6%, [...] months Assessment & Plan (09/14/2021 12:33 PM TEEN COUNSELOR): Chronic, uncontrolled, worsening A1c today 8.0% Counseled [...] is worsening. Increase Metformin to 1000mg BID Stock Worker referral. Diabetes will be reassessed in 3 [...] patent. Assessment & Plan (12/09/2017 4:28 PM TEEN COUNSELOR): Diabetes is improving with treatment. Dietary recommendations [...] AIC Assessment & Plan (11/18/2017 10:34 AM TEEN COUNSELOR): Diabetes is newly identified. Dietary recommendations for [...] that were on the $4 list at [facility]-Flexeril, Celexa (for anxiety). Will add Neurontin today. Pt to start slowly and just take one at bedtime. Encourage pt. To exercise and stop smoking. She does walk with her dogs. Will refer her to Rheumatology and get baseline RA And SON labs. Assessment & Plan (11/18/2017 12:54 PM TEEN COUNSELOR): Pt states she was diagnosed in 2009. [...] is also on the $4 list at [facility]. She also c/o of numbness and tingling in her feet and legs and hands. In addition, start Citalopram 20 mg po daily. She is to start 1/2 tab for a week then a whole tablet. Cyclobenzaprine 5 mg TID was started for muscle spasms and her fibromyalgia. Acute cystitis without hematuria 11/18/2017 Assessment & Plan (11/18/2017 12:46 PM TEEN COUNSELOR): Complete antibiotic as prescribed Do not hold [...] 11/18/2017 Assessment & Plan (11/18/2017 12:48 PM TEEN COUNSELOR): Pt stated she just had a well women's exam. She stated she told the doctor that she had some vaginal bleeding. We will need to get the office notes and plans. Referrals for Laura and colonoscopy given. Malignant hyperthermia Current Treatment and Therapy Plans No current plan information found. Past Treatment and Therapy Plans No past plan information found. Lifetime Dose Tracking * Chemical Lifetime Dose Automatic Entry Manual Entr y DLP 179.2 mGycm 179.2 mGycm 0 mGycm CTDIvol 5.12 mGy 5.12 mGy 0 mGy
--- OUTSIDE RECORDS SUMMARY | 2025-09-01 13:03 | XMS_ITS | Clinical Summary ---
Author Organization [facility] Address [address], [place] [address] Phone Care Team Providers Care Bobbin Hauler Name Role Phone Claude Philip MD Primary Care Provider [phone] Allergies Active Allergy Reactions Criticality Noted Date Comments Iodine 10/02/2023 Shellfish Protein-Containing Drug Products 10/02/2023 Medications Empagliflozin (Jardiance) 10 MG tablet Take [...] DEV) misc 3 times a day Active Kerendia 20 MG tabletIndicatio ns:Albuminuria, not otherwise specified TAKE 1 TABLET BY MOUTH 1 TIME EACH DAY 90 tablet 1 07/19/2025 Active Active Problems Problem Noted Date Diagnosed Date Albuminuria 05/18/2024 Obstructive sleep apnea syndrome 10/15/2023 Hyperlipidemia 10/15/2023 Type 2 diabetes mellitus 10/02/2023 Essential hypertension 10/02/2023 Resolved Problems Problem Noted Date Diagnosed Date Resolved Date Chronic obstructive pulmonary disease 10/15/2023 05/18/2024 Encounters Date Type Department Care Team Description 07/17/2025 Refill [facility] [address] [place] [address] George Valencia MD Albuminuria, not otherwise specified (Primary Dx) from Last 3 Months Family History Medical [...] on file Legal Sex Female 9:50 AM [facility] Gender Identity Not on file Sexual Orientation [...] Upcoming Encounters Date Type Department Care Team ([facility] st Contact Info) Description 10/19/2025 1:20 PM FAMILY SERVICES ASSISTANT Office Visit [facility] [address] [place] [address] Hector Huggins MD [address] [facility] [address] [place] [address] Health Maintenance Due Date Last Done Comments Diabetic Foot Exam 1972 Ophthalmology Exam 1972 Pneumococcal PPSV23 Highest Risk Adult (1 of 3 - PCV13) 1981 Influenza Vaccine (#1) 2025 12/13/2021 Insurance Care Teams Bobbin Hauler Relationship Specialty Start Date End Date Claude Philip MD PCP - General 09/02/23
--- OUTSIDE RECORDS SUMMARY | 2025-09-01 13:03 | XMS_ITS | Encounter Summary ---
Author Organization [facility] Address [address] [place] [address] Phone Care Team Providers Care Echocardiography Tech Name Role Phone Ernestine Ag NP Primary Care Provider [phone] Alivia Keller NP Primary Care Provider [phone] No, Physician Primary Care Provider [phone] Danilo Dominguez MD Primary Care Provider [phone] Claude Philip MD Primary Care Provider [phone] Encounter Details Date Type Department Care Team (Late st Contact Info) Description 12/30/2017 Orders Only [facility] ProviderJozef MD [address] [place] [id number] Social History Tobacco Use Types Packs/Day Years Used Date Smoking Tobacco: Every Day Smokeless Tobacco: Never Comments:10-11 cigs a day Comments No Sex and Gender Information Value Date Recorded Sex Assigned at Not on file 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 Gender Identity Female 01/31/2021 7:50 AM CDT Sexual Orientation Straight 01/31/2021 7: 50 AM CDT documented as of this encounter Functional Status * In the past year, patient experienced: Question Answer Date of Assessment Author One or more falls in the last year No 2017 10:41 AM CDT Saloni Camacho MA * BP Location Answer Date of Assessment Author Right arm 12/30/2017 10:41 AM CDT Saloni Camacho MA * BP Location Answer Date of Assessment Author Right arm 12/30/2017 10:41 AM CDT Saloni Camacho MA documented as of this [...] on filedocumented in this encounter Care Teams Echocardiography Tech Relationship Specialty Start Date End Date Ernestine Ag NP PCP - General Nurse Practitioner 11/18/17 02/15/19 Alivia Keller NP [address] [place] [id number] PCP - General Family Medicine 02/16/19 08/18/19 No, Physician PCP - General 08/19/19 03/15/20 Danilo Dominguez MD PCP - General Internal Medicine 03/16/20 07/01/23 Claude Philip MD PCP - General Emergency Medicine 07/02/23 documented as of this encounter
--- OUTSIDE RECORDS SUMMARY | 2025-09-01 13:03 | XMS_ITS | Clinical Summary ---
Author Organization [facility] Care Team Providers Care Traffic Personnel Supervisor Name Role Phone Danilo Dominguez MD Primary [...] on file Legal Sex Female 1:19 PM LACING PRESSER Gender Identity Not on file Sexual Orientation [...] years) (1 of 2 - PCV) 1981 Cologuard 2007 Colonoscopy 2007 Colorectal Cancer Screening 2007 Immunochemical Fecal Occult Blood 2007 Respiratory Syncytial Virus (RSV) Immunization (Adult) (1 - Risk 50-74 years 1-dose series) 2012 Zoster Immunization (1 of 2) 2012 Diabetes: Nephropathy Screening 12/05/2020 12/06/2019, 01/13/2018 Diabetes: Hemoglobin A1c 06/30/2022 022, 05/04/2020, 10/08/2019 Influenza Immunization (#1) 06/07/20252 01/2022, 06/26/2019 SARS-COV-2 Immunization ( - season) 2025 Mammogram Discontinued 01/13/2022 Hepatitis B Immunization Aged [...] (COMPREHENSIVE METABOLIC PANEL) STAT 12/06/2019 3:24 PM LACING PRESSER from Last 3 Months or Most Recently [...] Comparison is made to exam dated: 07/14/2019 [facility] [place]. BREAST TISSUE:There are scattered fibroglandular densities in [...] exam. Electronically signed by: Jimena hinds/rossy:01/17/2022 15:31:57 Electric Meter Installer Helper(s): RT Minnie(R)(M), [facility] letter sent: Normal Exam Reading location: [facility] BI-RADS: 2 Benign Procedure Note Jimena Goldberg [...] Comparison is made to exam dated: 07/14/2019 [facility] [place]. BREAST TISSUE:There are scattered fibroglandular densities in [...] signed by: Jimena Goldberg M.D. ab/penrad:01/17/2022 15:31:57 Electric Meter Installer Helper(s): Janee Walton RT(R)(M), [facility] letter sent: Normal Exam Reading location: [facility] BI-RADS: 2 Benign Danilo Dominguez MD IM MAMMO ORDERABLES Final Result * (ABNORMAL) CMP (Comprehensive Metabolic Panel) (12/06/2019 3:24 PM LACING PRESSER) SODIUM 136 136 - 144 mmol/L 12/06/2019 4:24 PM [facility] POTASSIUM 4.0 3.5 - 5.1 mmol/L 12/06/2019 4:24 PM [facility] CHLORIDE 98(L) 100 - 110 mmol/L 12/06/2019 4:24 PM [facility] CO2, VENOUS 24 22 - 32 mmol/L 12/06/2019 4:24 PM [facility] ANION GAP 18.0 8.0 - 20.0 mmol/L 12/06/2019 4:24 PM [facility] GLUCOSE 131(H) 70 - 99 mg/dL 12/06/2019 4:24 PM [facility] BUN 15 6 - 20 mg/dL 12/06/2019 4:24 PM [facility] CREATININE, BLOOD 0.64 0.60 - 1.10 mg/dL 12/06/2019 4:24 PM [facility] BUN/CREATININE RATIO 23(H) 12 - 20 ratio 12/06/2019 4:24 PM [facility] TOTAL PROTEIN 7.0 6.0 - 8.3 g/dL 12/06/2019 4:24 PM [facility] ALBUMIN 4.2 3.5 - 5.2 g/dL 12/06/2019 4:24 PM LACING PRESSER [facility] Comment: The colormetric methods used for the determination of Albumin may lead to falsely elevated test results in patients suffering from renal failure or insufficiency due to interference with other proteins. A/G RATIO 1.5 1.0 - 2.0 12/06/2019 4:24 PM LACING PRESSER [facility] CALCIUM 9.5 8.9 - 10.3 mg/dL 12/06/2019 4:24 PM LACING PRESSER [facility] T BILI <=0.2 <=1.2 mg/dL 12/06/2019 4:24 PM [facility] SGOT (AST) 11 <=32 U/L 12/06/2019 4:24 PM [facility] SGPT (ALT) 14 <=33 U/L 12/06/2019 4:24 PM [facility] ALKALINE PHOSPHATASE 85 35 - 105 U/L 12/06/2019 4:24 PM [facility] GFR, EST. NONAFRICAN >60 >=60 12/06/2019 4:24 PM LACING PRESSER [facility] GFR, EST. >60 >=60 020 4:24 PM [facility] Comment: Creatinine Clearance is the preferred criteria for selecting drug dose adjustments in renally impaired patients. The GFR is provided as additional pertinent clinical information. GFR is reported in mL/min/1.73 sq m. Blood specimen (specimen) Venous Catheter (IV) / Unknown 12/06/2019 3:24 PM LACING PRESSER 12/06/2019 3:51 PM LACING PRESSER Jenniffer Ozuna Page PAC CHEMISTRY ORDERABLES Final R esult [facility] [address] [place] [address] from Last 3 Months or Most Recently Relevant to Health Maintenance Insurance MEDICA[employer] Care Teams Traffic Personnel Supervisor Relationship Specialty Start Date End Date Danilo Dominguez MD PCP - General Internal Medicine 03/12/19
== END 2025-09-01 12:54 | disposition home or self-care (01) ==
LOC: ANHFOHIMG 12:55
PROVIDERS: PCP Emergency Medicine; Visit Provider Emergency Medicine
DX: Z12.31 Encounter for screening mammogram for malignant neoplasm of breast (principal)
CPT/HCPCS: 77063; 77067